=== PATIENT | female | born 1955 | race Caucasian/White ===

== ENCOUNTER 2018-02-15 10:31 | Emergency (ER) | END 2018-02-15 11:41 | disposition home or self-care (01) ==

== ENCOUNTER 2018-02-17 05:45 | Emergency (ER) | END 2018-02-17 06:46 | disposition home or self-care (01) ==

== ENCOUNTER 2018-02-19 06:58 | Emergency (ER) | END 2018-02-19 08:40 | disposition home or self-care (01) ==

== ENCOUNTER 2018-02-21 05:10 | Emergency (ER) | END 2018-02-21 05:40 | disposition home or self-care (01) ==

== ENCOUNTER 2018-12-06 05:50 | Inpatient (IN) | payer MEDICAID, OTHER ==
[~2018-12-06] VITALS: Ht 170.2 cm; Wt 89.6 kg
[2018-12-06] VITALS (27 sets, daily range): BP systolic 94–128; BP diastolic 66–79; PULSE 94–178; RESP 19–29; Ht 170.2 cm; Wt 89.6 kg
[~2018-12-06 05:50] MED LIST: CEPH-443 PO; MUPI22OI2 TOP
[2018-12-06] MEDS ORDERED: ASPIRIN 81 MG TAB PO STA (06:22)
[2018-12-06] MEDS ORDERED: DILTIAZEM 25 MG INJ IV ONE ×2 (06:30→07:00)
[2018-12-06] MEDS ORDERED: DILTIAZEM-D5W 125MG/125ML DRIP 125 ML IV SCH (07:00)
[2018-12-06] MEDS ORDERED: ALBU18HF INHALATION (07:25)
[2018-12-06] MEDS ORDERED: LISI10TA2 PO (07:25)
[2018-12-06] MEDS ORDERED: DOXY100T2 PO (07:26)
[2018-12-06] MEDS ORDERED: ACET-141 PO (07:26)
[2018-12-06] MEDS ORDERED: HYDR12.58 PO (07:26)
[2018-12-06] MEDS ORDERED: CHOL100062 PO (07:27)
[2018-12-06] MEDS ORDERED: ATOR20TA38 PO (07:27)
[2018-12-06] MEDS ORDERED: GLIP5TAB13 PO (07:27)
--- NOTE | 2018-12-06 07:52 | ERD ---
ER Documentation Chief Complaint Chief Complaint DX AT [facility]/ [facility]NA ON TUESDAY. C/O SOB HPI 63-year-old female presents the emergency department complaining of shortness of breath. Patient is a somewhat difficult limited historian. She states that over the last 2-3 days, she felt short of breath. She reported no fevers, chills, cough, sputum production. She had a nonspecific discomfort in her chest associated with the shortness of breath. She was evaluated at [facility] and diagnosed with a pneumonia. She was given albuterol and antibiotics, but it is unclear how compliant she has been with these medications. She was told at that hospital that "they do not handle heart patients." Today, she continues to have chest pain and shortness of breath. She reports no further details other than that as above. ROS All systems reviewed and are negative except as per history of present illness. Medications Home Meds Reported Medications Atorvastatin Calcium* (Atorvastatin Calcium*) 20 Mg Tablet, 20 MG PO QHS, #30 TAB 12/06/18 Glipizide* (Glipizide*) 5 Mg Tablet, 5 MG PO BID, TAB 12/06/18 Cholecalciferol* (Vitamin D3*) 1,000 Unit Tablet, 2000 UNIT PO DAILY, TAB 12/06/18 Hydrochlorothiazide* (Hydrochlorothiazide*) 12.5 Mg Tablet, 12.5 MG PO DAILY, #30 TAB 12/06/18 Doxycycline* (Vibramycin*) 100 Mg Tab, 100 MG PO BID, TAB 12/06/18 Acetaminophen* (Acetaminophen*) 500 MG Extra Strength Tablet, 500 MG PO Q6 PRN for PAIN AND OR ELEVATED TEMP, TAB 12/06/18 Lisinopril* (Lisinopril*) 10 Mg Tablet, 10 MG PO DAILY, #30 TAB 12/06/18 Albuterol Sulfate* (Ventolin HFA*) 18 Gm Hfa.aer.ad, 2 PUFF INHALATION Q4H PRN for WHEEZING AND SOB, #1 INHALER 12/06/18 Discontinued Scripts Mupirocin* (Bactroban*) 2% -22 Gram Oint...g., 1 APPLIC TOP BID for 7 Days, EA Prov:YANIQUE JOHNSON PA-C 02/19/18 Cephalexin* (Keflex*) 500 Mg Capsule, 500 MG PO QID for 7 Days, CAP Prov:ADAMA CATALAN PA-C 02/15/18 Allergies Allergies: Coded Allergies: codeine (Unverified Allergy, Unknown, 12/06/18) PMhx/Soc History of Surgery: Yes (right knee) Anesthesia Reaction: No Hx Neurological Disorder: No Hx Respiratory Disorders: No Hx Cardiac Disorders: Yes (HTN, HIGH CHOLESTEROL) Hx Psychiatric Problems: No Hx Miscellaneous Medical Probl: Yes (DM) Hx Alcohol Use: No Hx Substance Use: No Hx Tobacco Use: No Smoking Status: Never smoker FmHx Noncontributory for chief complaint Physical Exam Vitals Vital Signs Date Temp Pulse Resp B/P (MAP) Pulse Ox O2 O2 Flow FiO2 Time Delivery Rate 12/06/18 98.3 141 22 98/58 (71) 96 Nasal 4.0 07:20 Cannula 12/06/18 98.3 178 16 119/73 94 Room Air 06:30 (88) 12/06/18 98.5 72 18 225/152 99 05:54 (176) Physical Exam GENERAL: The patient is well developed and appropriate for usual state of health in no apparent distress HEENT: Pupils equal, round, and reactive to light. EOMI. There is no scleral icterus. NECK: C-spine is soft and supple, there is no meningismus. There is no cervical lymphadenopathy. LUNGS: Clear to auscultation bilaterally. There are no rales, wheezes or rhonchi. HEART: Rapid irregularly irregular rate and rhythm with no murmurs rubs or ga llops ABDOMEN: Soft, non-tender, non-distended. There are bowel sounds in all four quadrants. No rebound or guarding. EXTREMITIES: There is no peripheral cyanosis or edema. No focal swelling or erythema. NEURO: The patient moves all four extremities with 5/5 strength. Cranial nerves II - XII are intact. Normal gait. Alert and oriented SKIN: There is no apparent rash or petechiae. HEME/LYMPHATIC: There is no evidence of excessive bruising or lymphedema. PSYCHIATRIC: The patient does not appear anxious or depressed. Result Diagram: 12/06/18 0646 12/06/18 0646 Results 24 hrs Laboratory Tests Test 12/06/18 06:46 White Blood Count 11.8 10^3/ul Red Blood Count 4.43 10^6/ul Hemoglobin 13.4 g/dl Hematocrit 40.3 % Mean Corpuscular Volume 91.0 fl Mean Corpuscular Hemoglobin 30.2 pg Mean Corpuscular Hemoglobin Concent 33.3 g/dl Red Cell Distribution Width 13.2 % Platelet Count 207 10^3/UL Mean Platelet Volume 11.2 fl Immature Granulocytes % 0.600 % Neutrophils % 74.8 % Lymphocytes % 16.7 % Monocytes % 7.4 % Eosinophils % 0.2 % Basophils % 0.3 % Nucleated Red Blood Cells % 0.0 /100WBC Immature Granulocytes # 0.070 10^3/ul Neutrophils # 8.8 10^3/ul Lymphocytes # 2.0 10^3/ul Monocytes # 0.9 10^3/ul Eosinophils # 0.0 10^3/ul Basophils # 0.0 10^3/ul Nucleated Red Blood Cells # 0.0 10^3/ul Prothrombin Time 13.6 Sec Prothrombin Time Ratio 1.1 INR International Normalized Ratio 1.03 Activated Partial Thromboplast Time 30.3 Sec Sodium Level 140 mmol/L Potassium Level 3.6 mmol/L Chloride Level 101 mmol/L Carbon Dioxide Level 23 mmol/L Anion Gap 16 Blood Urea Nitrogen 26 mg/dl Creatinine 0.97 mg/dl Est Glomerular Filtrat Rate mL/min 58 mL/min Glucose Level 207 mg/dl Calcium Level 9.7 mg/dl Troponin I < 0.012 ng/ml B-Type Natriuretic Peptide 1120 PG/ML Current Medications Medications Dose Sig/Maddy Start Time Status Last (Trade) Ordered Route PRN Stop Time Admin Dose Reason Admin Aspirin 162 mg ONCE STAT 12/06/18 DC 12/06/18 (Aspirin) PO 06:22 06:41 12/06/18 06:24 Diltiazem 20 mg ONCE ONCE 12/06/18 DC 12/06/18 HCl IV 06:30 06:42 (Cardizem Iv) 12/06/18 06:31 Diltiazem 20 mg ONCE ONCE 12/06/18 DC 12/06/18 HCl IV 07:00 07:07 (Cardizem Iv) 12/06/18 07:01 Diltiazem 125 ml @ 5 TITRATE IV 12/06/18 HCl mls/hr 07:00 Procedures/MDM Patient was taken to a room, seen and evaluated. Comfort measures were initiated. Diagnostic tests were ordered and reviewed. 3 LEAD RHYTHM STRIP: A. fib with RVR. After diltiazem and starting a diltiazem drip, her heart rate began to slow down, but continued to require the drip for further rate control EK lead EKG reviewed by myself: A. fib with RVR Normal [place] and intervals Nonspecific ST and T wave changes without ST elevation Impression: Atrial fibrillation with rapid ventricular response RADIOLOGY: Reviewed with the radiologist CONSULTATION: Hospitalist was notified for admission REEVALUATION: 0750: Diagnostic tests were appreciated. Patient continued to require IV Cardizem through the drip to control heart rate. Her blood pressure remained borderline but essentially stable and improving and she remained clinically nontoxic MEDICAL DECISION MAKIN-year-old female resents with shortness of breath. Although she was recently diagnosed with a pneumonia, her evaluation is more consistent with this being cardiac in etiology. Patient required aggressive medical intervention for her significantly elevated heart rate and newly diagnosed rapid atrial fibrillation. Patient will continue to require IV diltiazem with titration and will require hospitalization to the intensive care unit she continues to have a significantly rapidly elevated heart rate. At this point she does not appear to be ischemic, but this will require further evaluation and monitoring. CRITICAL CARE: Time:>35 minutes Patient has a significant chance of clinical deterioration Treatments/Evaluations: Close monitoring and treatment of unstable vital signs, cardiorespiratory, and neurologic status, while maintaining tight balance of fluid, respiratory, and cardiac interventions. Departure Diagnosis: Primary Impression: Atrial fibrillation with RVR Condition: Serious BE FRANZ Dec 06, 2018 07:52
[2018-12-06] MEDS ORDERED: METOPROLOL 5 MG INJ IV ONE (08:30)
[2018-12-06] MEDS ORDERED: SOD CHLORIDE 0.9% 500 ML IV ONE (08:30)
[2018-12-06] MEDS ORDERED: ACETAMINOPHEN 500 MG TAB PO STA (09:01)
[2018-12-06] MEDS ORDERED: ALBUTEROL HFA 8 GM INHALER INH PRN (10:30)
[2018-12-06] MEDS ORDERED: AMIODARONE 150MG/D5W BOLUS 100 ML IV ONE (10:30)
--- NOTE | 2018-12-06 10:42 | HP ---
Date/Time of Note Date/Time of Note DATE: 12/06/18 TIME: 10:28 Assessment/Plan VTE Prophylaxis Pharmacological prophylaxis: LMWH Lines/Catheters IV [facility] [place] Assessment/Plan Hospital Course 63-year-old female who presents with left-sided chest pain, mild shortness of breath and occasional cough, admitted and managed as follows 1. New onset, versus new diagnosis A. fib with RVR 2. Chest pain with radiation to left shoulder and left neck, rule out acute coronary syndrome 3. Respiratory tract infection, likely viral 4. Chronic dyslipidemia on statin therapy 5. Chronic diabetes mellitus type 2 on oral hypoglycemic therapy 6. Chronic kidney disease stage II? EGFR 58 7. Rule out CHF, BNP elevated 8. Mild leukocytosis likely secondary to #3 Plan: 1. Patient will be admitted to telemetry floor, continue Cardizem drip and titrate for optimal rate control. We will also give a bolus dose of amiodarone because her blood pressure is running low now and her heart rate is still pretty fast. Cardiology consultation will be obtained 2. Complete ACS rule out, 2D echo, further intervention re: chest pain will be per cardiology 3. We will continue azithromycin treatment for possible left-sided pneumonia, continue to monitor, patient does not have overt signs of infection 4. We will hold on home antihypertensives at this time as blood pressure is a little on the low side on Cardizem drip 5. Hold home oral hypoglycemics for now, start basal and pre-meal Lantus based on weight, place patient on diabetic control diet, plan to resume oral hypoglycemics at discharge 6. Other interventions as per the patient's chart. TSH, lovenox, A1c e.t.c Plan of care has been discussed in detail with the patient, questions have been answered. Result Diagram: 12/06/18 0646 12/06/18 0646 Results 24hrs Laboratory Tests Test 12/06/18 06:46 White Blood Count 11.8 H Red Blood Count 4.43 Hemoglobin 13.4 Hematocrit 40.3 Mean Corpuscular Volume 91.0 Mean Corpuscular Hemoglobin 30.2 Mean Corpuscular Hemoglobin Concent 33.3 Red Cell Distribution Width 13.2 Platelet Count 207 Mean Platelet Volume 11.2 H Immature Granulocytes % 0.600 H Neutrophils % 74.8 Lymphocytes % 16.7 Monocytes % 7.4 Eosinophils % 0.2 Basophils % 0.3 Nucleated Red Blood Cells % 0.0 Immature Granulocytes # 0.070 H Neutrophils # 8.8 H Lymphocytes # 2.0 Monocytes # 0.9 Eosinophils # 0.0 Basophils # 0.0 Nucleated Red Blood Cells # 0.0 Prothrombin Time 13.6 Prothrombin Time Ratio 1.1 INR International Normalized Ratio 1.03 Activated Partial Thromboplast Time 30.3 Sodium Level 140 Potassium Level 3.6 Chloride Level 101 Carbon Dioxide Level 23 Anion Gap 16 H Blood Urea Nitrogen 26 H Creatinine 0.97 Est Glomerular Filtrat Rate mL/min 58 L Glucose Level 207 Calcium Level 9.7 Troponin I < 0.012 B-Type Natriuretic Peptide 1120 H HPI/ROS Admit Date/Time Admit Date/Time Hx of Present Illness 63-year-old female with a past medical history of hypertension, diabetes and dyslipidemia who presented to emergency room today with complaints of left-sided chest pain and shortness of breath. The patient states that 2 days ago she had gone to the emergency room at [facility] with complaints of cough and some left- sided chest discomfort. At that time an x-ray was suggestive of a pneumonia and she was discharged on oral antibiotics. She was however not able to purchase the antibiotics because she had a huge men-ro-mpxkbs cost and also she had taken nothing. She did not improve, and actually got worse and overnight she continued to have significant left-sided discomfort, she also had pain in her shoulder, on the left side, also pain on the left side of her neck and on the left side of her face as well as headaches. There was shortness of breath associated with this but not enough to affect ambulation or the rest of her daily activities. Based on this she decided to come to our emergency room to be evaluated and possibly given a different prescription for the pneumonia. When she got to the ER she was found to be in rapid atrial fibrillation and a chest x-ray does come from the presence of left lower lobe atelectasis versus infiltrate and at this time the patient is being admitted for chest pain rule out control of new onset A. fib versus new diagnosis and treatment of possible left-sided pneumonia. Of note is that the patient does maintain close follow-up with her primary care doctor, she actually has an appointment tomorrow based on her recent emergency room visit. She has a routine appointment after that December 25. Hence it is more likely that this is a new onset of atrial fibrillation . ROS Constitutional: No chills, No febrile, No nausea, No poor po Eyes: no complaints ENT: no complaints Gastrointestinal: no complaints Genitourinary: no complaints Neurologic: headache; No focal-weakness, No syncope PMH/Family/Social Past Medical History HTN DM HLD OA Medications Current Medications Diltiazem HCl 125 ml @ 5 mls/hr TITRATE IV Last administered on 12/06/18at 07:50; Admin Dose 5 MLS/HR; Start 12/06/18 at 07:00 Acetaminophen (Tylenol Tab) 500 mg Q6 PRN PO MILD PAIN(1-3)OR ELEVATED TEMP; Start 12/06/18 at 10:30; Status UNV Albuterol (Proventil (O.r. Use Only)) 2 puff Q4H PRN INH WHEEZING AND SOB; Start 12/06/18 at 10:30; Status UNV Atorvastatin Calcium (Lipitor) 20 mg QHS PO ; Start 12/06/18 at 21:00; Status UNV Cholecalciferol (Vitamin D) 2,000 unit DAILY PO ; Start 12/07/18 at 09:00; Status UNV Amiodarone HCl 100 ml @ 600 mls/hr ONCE ONCE IV ; Start 12/06/18 at 10:30; Stop 12/06/18 at 10:39; Status UNV Coded Allergies: codeine (Unverified Allergy, Unknown, 12/06/18) Past Surgical History Knee sx Social History Smoking Status: Never smoker Exam/Review of Systems Vital Signs Vitals Vital Signs Date Temp Pulse Resp B/P (MAP) Pulse Ox O2 O2 Flow FiO2 Time Delivery Rate 12/06/18 117 23 101/89 99 Nasal 4.0 10:11 (93) Cannula 12/06/18 98.3 07:20 Exam Exam General: A&O x3, answering questions appropriately, calm , no significant distress HEENT: NC/ AT. PERRL. EOM intact Neck: supple, no JVD CVS: S1, S2, irregularly irregular no murmurs. no pain on chest wall palpation Lungs: CTA b/l. no wheezing or rhonchi but diminished Abd: soft, nontender, +BS Ext: moving all extremities skin: no rashes . Additional Comments PROCEDURE: XR Chest. CLINICAL INDICATION: Chest pain TECHNIQUE: AP portable semi upright chest was obtained COMPARISON: None. FINDINGS: The heart is moderately to markedly enlarged. Atherosclerosis of the aorta. No definite pulmonary vascular congestion. Mild vague increased density the bases likely due to a combination of atelectasis and scarring. Left basilar infiltrate cannot be excluded although felt to be less likely. Remainder lungs are clear. No pleural effusions and pneumothorax per IMPRESSION: 1. Cardiomegaly without congestive heart failure. 2. Mild patchy basilar densities more prominent at the left base likely due to atelectasis and scarring. Acute infiltrate at the left base cannot be totally excluded though felt to be less likely. RPTAT:AAJJ Physician Emerita Date Time Electronically viewed and signed by Larry Gordillo Physician on 12/06/2018 06:59 BM/ CC: BE FRANZ [id number] EKG : BRODIE Pat Dec 06, 2018 10:38
[2018-12-06] MEDS ORDERED: AZITHROMYCIN 250 MG TAB PO ONE (11:00)
[2018-12-06] MEDS: ENOXAPARIN 100 MG/ML SYG SC SCH ×2 (12:14→21:02)
--- NOTE | 2018-12-06 14:54 | CONS ---
Assessment/Plan Cardiology NYHA: II Heart Failure Type: Acute Heart Failure Type: Diastolic Assessment/Plan Hospital Course (Demo Recall) Assessment: Atrial fibrillation with rapid ventricular response - new diagnosis, uncertain duration of onset, CHADS2 score of 2 Acute diastolic heart failure - echocardiogram with preserved LVEF Chest pain Hypertension Dyslipidemia Diabetes mellitus Possible upper respiratory tract infection or pneumonia Recommendations: -diltiazem drip for rate control -continue anticoagulation with Lovenox, will eventually need to transition to chronic oral anticoagulation -continue aspirin and statin Consultation Date/Type/Reason Admit Date/Time Type of Consult Cardiology Reason for Consultation atrial fibrillation with rapid ventricular response Date/Time of Note DATE: 12/06/18 TIME: 14:47 Hx of Present Illness The patient is a 63 year-old female who presents with chest pain and shortness of breath. She presented to the emergency department at [place] on Tuesday with similar symptoms and was diagnosed with pneumonia and discharged. However, she has been unable to obtain the antibiotic that she was prescribed due to high [id number] costs. She presents now with worsening symptoms. EKG shows atrial fibrillation with rapid ventricular response. Initial troponin is negative. BNP is elevated at 1120 and chest x-ray findings consistent with congestive heart failure. 14 point review of systems negative other than per HPI. Past Medical History Medical History: diabetes, high cholesterol, hypertension Home Meds Reported Medications Atorvastatin Calcium* (Atorvastatin Calcium*) 20 Mg Tablet, 20 MG PO QHS, #30 TAB 12/06/18 Glipizide* (Glipizide*) 5 Mg Tablet, 5 MG PO BID, TAB 12/06/18 Cholecalciferol* (Vitamin D3*) 1,000 Unit Tablet, 2000 UNIT PO DAILY, TAB 12/06/18 Hydrochlorothiazide* (Hydrochlorothiazide*) 12.5 Mg Tablet, 12.5 MG PO DAILY, #30 TAB 12/06/18 Doxycycline* (Vibramycin*) 100 Mg Tab, 100 MG PO BID, TAB 12/06/18 Acetaminophen* (Acetaminophen*) 500 MG Extra Strength Tablet, 500 MG PO Q6 PRN for PAIN AND OR ELEVATED TEMP, TAB 12/06/18 Lisinopril* (Lisinopril*) 10 Mg Tablet, 10 MG PO DAILY, #30 TAB 12/06/18 Albuterol Sulfate* (Ventolin HFA*) 18 Gm Hfa.aer.ad, 2 PUFF INHALATION Q4H PRN for WHEEZING AND SOB, #1 INHALER 12/06/18 Discontinued Scripts Mupirocin* (Bactroban*) 2% -22 Gram Oint...g., 1 APPLIC TOP BID for 7 Days, EA Prov:YANIQUE JOHNSON PA-C 02/19/18 Cephalexin* (Keflex*) 500 Mg Capsule, 500 MG PO QID for 7 Days, CAP Prov:ADAMA CATALAN PA-C 02/15/18 Medications Current Medications Diltiazem HCl 125 ml @ 5 mls/hr TITRATE IV Last administered on 12/06/18at 07 :50; Admin Dose 5 MLS/HR; Start 12/06/18 at 07:00 Acetaminophen (Tylenol Tab) 500 mg Q6 PRN PO MILD PAIN(1-3)OR ELEVATED TEMP; Start 12/06/18 at 10:30 Albuterol (Ventolin Hfa) 2 puff Q4H PRN INH WHEEZING AND SOB; Start 12/06/18 at 10:30 Atorvastatin Calcium (Lipitor) 20 mg QHS PO ; Start 12/06/18 at 21:00 Cholecalciferol (Vitamin D) 2,000 unit DAILY PO ; Start 12/07/18 at 09:00 Enoxaparin Sodium (Lovenox) 90 mg Q12 SC Last administered on 12/06/18at 12:14; Admin Dose 90 MG; Start 12/06/18 at 11:00 Azithromycin (Zithromax) 250 mg DAILY PO ; Start 12/07/18 at 09:00; Stop 12/11/18 at 08:59 Allergies: Coded Allergies: codeine (Unverified Allergy, Unknown, 12/06/18) Past Surgical History Umbilical hernia repair Left ankle surgery Family History Significant Family History: no pertinent family hx Social History Smoking Status: Never smoker Exam/Review of Systems Vital Signs Vitals Vital Signs Date Temp Pulse Resp B/P (MAP) Pulse Ox O2 O2 Flow FiO2 Time Delivery Rate 12/06/18 120 18 99/62 (74) 98 Nasal 13:00 Cannula 12/06/18 4.0 11:00 12/06/18 98.3 07:20 Exam Constitutional: alert, well developed Psych: no complaints, nl mood/affect Head: normocephalic, atraumatic Eyes: nl conjunctiva, nl lids ENMT: nl external ears & nose, nl nasal mucosa & septum Neck: supple, non-tender Respiratory: crackles/rales, diminished breath sounds Cardiovascular: irregular rhythm Gastrointestinal: soft, non-tender Musculoskeletal: nl extremities to inspection Extremities: No cyanosis, No clubbing, No edema Neurological: nl mental status, nl speech Labs Result Diagram: 12/06/18 0646 12/06/18 0646 Results 24hrs Laboratory Tests Test 12/06/18 06:46 12/06/18 11:50 12/06/18 12:48 White Blood Count 11.8 H Red Blood Count 4.43 Hemoglobin 13.4 Hematocrit 40.3 Mean Corpuscular Volume 91.0 Mean Corpuscular Hemoglobin 30.2 Mean Corpuscular Hemoglobin Concent 33.3 Red Cell Distribution Width 13.2 Platelet Count 207 Mean Platelet Volume 11.2 H Immature Granulocytes % 0.600 H Neutrophils % 74.8 Lymphocytes % 16.7 Monocytes % 7.4 Eosinophils % 0.2 Basophils % 0.3 Nucleated Red Blood Cells % 0.0 Immature Granulocytes # 0.070 H Neutrophils # 8.8 H Lymphocytes # 2.0 Monocytes # 0.9 Eosinophils # 0.0 Basophils # 0.0 Nucleated Red Blood Cells # 0.0 Prothrombin Time 13.6 Prothrombin Time Ratio 1.1 INR International Normalized Ratio 1.03 Activated Partial Thromboplast Time 30.3 Sodium Level 140 Potassium Level 3.6 Chloride Level 101 Carbon Dioxide Level 23 Anion Gap 16 H Blood Urea Nitrogen 26 H Creatinine 0.97 Est Glomerular Filtrat Rate mL/min 58 L Glucose Level 207 Calcium Level 9.7 Troponin I < 0.012 0.032 B-Type Natriuretic Peptide 1120 H Thyroid Stimulating Hormone (TSH) 5.320 H Free Thyroxine 1.79 Urine Color KADY Urine Clarity CLOUDY A Urine pH 5.0 Urine Specific [place] 1.028 Urine Ketones TRACE A Urine Nitrite NEGATIVE Urine Bilirubin NEGATIVE Urine Urobilinogen 2+ H Urine Leukocyte Esterase TRACE A Urine Microscopic RBC 5 Urine Microscopic WBC 15 H Urine Squamous Epithelial Cells FEW Urine Hemoglobin NEGATIVE Urine Glucose 3+ H Urine Total Protein 1+ H Urine Opiates Screen Positive Urine Barbiturates Negative Urine Amphetamines Screen Negative Urine Benzodiazepines Screen Negative Urine Cocaine Screen Negative Urine Cannabinoids Negative Creatine Kinase 88 Creatine Kinase Index 1.6 Creatinine Kinase MB (Mass) 1.40 Medications Medications Current Medications Diltiazem HCl 125 ml @ 5 mls/hr TITRATE IV Last administered on 12/06/18at 07:50; Admin Dose 5 MLS/HR; Start 12/06/18 at 07:00 Acetaminophen (Tylenol Tab) 500 mg Q6 PRN PO MILD PAIN(1-3)OR ELEVATED TEMP; Start 12/06/18 at 10:30 Albuterol (Ventolin Hfa) 2 puff Q4H PRN INH WHEEZING AND SOB; Start 12/06/18 at 10:30 Atorvastatin Calcium (Lipitor) 20 mg QHS PO ; Start 12/06/18 at 21:00 Cholecalciferol (Vitamin D) 2,000 unit DAILY PO ; Start 12/07/18 at 09:00 Enoxaparin Sodium (Lovenox) 90 mg Q12 SC Last administered on 12/06/18at 12:14; Admin Dose 90 MG; Start 12/06/18 at 11:00 Azithromycin (Zithromax) 250 mg DAILY PO ; Start 12/07/18 at 09:00; Stop 12/11/18 at 08:59 ALLEN DEVINE MD Dec 06, 2018 14:54
[2018-12-06] MEDS ORDERED: METF100010 PO (15:40)
[2018-12-06] MEDS ORDERED: DEXTROSE 50% 50 ML SYRINGE IV PRN ×2 (18:30)
[2018-12-06] MEDS ORDERED: GLUCOSE GEL 15 GRAM TUBE PO PRN ×2 (18:30)
[2018-12-06] MEDS ORDERED: GLUCOSE GEL 15 GRAM TUBE BUCCAL PRN (18:30)
[2018-12-06] MEDS ORDERED: GLUCAGON 1 MG INJ IM PRN (18:30)
[2018-12-06] MEDS ORDERED: AMIODARONE 900 MG in DEXTROSE 5% 482 ML IV SCH (19:30)
[2018-12-06] MEDS ORDERED: DIGOXIN 500 MCG INJ IV ONE ×2 (20:56→21:00)
[2018-12-06] MEDS: INSULIN ASPART [NOVOLOG] 3 ML PEN SC SCH ×2 (21:03→21:04)
[2018-12-06] MEDS: INSULIN GLARGINE [LANTus] (100 UNITS/ML) SYG SC SCH (21:06)
[2018-12-06] MEDS: ATORVASTATIN 20 MG TAB PO SCH (21:06)
[2018-12-06] MEDS: ACETAMINOPHEN 500 MG TAB PO PRN (23:39)
[2018-12-07] VITALS (49 sets, daily range): BP systolic 93–149; BP diastolic 59–89; PULSE 65–125; RESP 13–26
[2018-12-07] MEDS: INSULIN ASPART [NOVOLOG] 3 ML PEN SC SCH ×9 (01:00→20:36)
[2018-12-07] MEDS: ACCU-CHEK XX SCH (01:44)
[2018-12-07] MEDS: ACETAMINOPHEN 500 MG TAB PO PRN ×3 (05:56→23:58)
--- NOTE | 2018-12-07 08:12 | RADRPT ---
Echocardiogram Report Patient Name: Chandu JHAVERI ID: [id number] : 1955 (63y 11m)Study Date: 12/06/2018 11:28:04 AM Gender: FAccession #: [id number] Tech: OK Location: Ref.Physician: BRODIE ROE Height(Cm): BSA: Weight(Kg): Quality: AdequateAccount #: Procedures: Echocardiographic Report: Transthoracic echocardiogram with complete 2D, M-Mode, and doppler examination. Indications: Chest Pain. Measurements: 2D/M Mode Doppler Measurement Value Normal Range Measurement Value Normal Range LVIDd 2D 4.6 [ 3.8 - 5.2 ] cm AV Peak Ahmet 1.2 [ 100.0 - 170.0 ] cm/sec LVIDs 2D 3.8 [ 2.2 - 3.5 ] cm AV Peak PG 6.0 [ 2.0 - 9.0 ] mmHg LVPWd 2D 1.2 [ 0.6 - 0.9 ] cm LVOT Peak Ahmet 0.9 [ 70.0 - 110.0 ] cm/sec IVSd 2D 1.3 [ 0.6 - 0.9 ] cm LVOT Peak PG 3.0 [ 2.0 - 6.0 ] mmHg IVS/LVPW 2D 1.1 ratio TR Peak Ahmet 2.3 [ 100.0 - 280.0 ] cm/sec AoR Diam 2D 3.9 [ 2.3 - 3.1 ] cm TR Peak PG 21.0 mmHg LA/Ao 2D 1 ratio RVSP 24.0 [ 10.0 - 36.0 ] mmHg LA Dimen 2D 2.8 [ 2.7 - 3.8 ] cm RA Pressure 3.0 mmHg Findings: Left Ventricle: Normal left ventricular systolic function. Normal left ventricular cavity size. Mild concentric left ventricular hypertrophy. Ejection fraction is visually estimated at 55 - 60 %. Tissue Doppler/Mitral Doppler indices are indeterminate in this study due to the presence of atrial fibrillation. Right Ventricle: Normal right ventricular size. Normal right ventricular systolic function. Left Atrium: The left atrium is normal in size. Right Atrium: The right atrium is normal in size. Mitral Valve: Normal appearance and function of the mitral valve with trace physiologic regurgitation. Aortic Valve: No hemodynamically significant aortic stenosis by doppler. Aortic cusps appear mildly calcified. Mild aortic valve regurgitation. Tricuspid Valve: Normal appearance of the tricuspid valve. Estimated peak PA systolic pressure 24 mmHg. There is trace tricuspid regurgitation. Pulmonic Valve: Normal pulmonic valve appearance. Pericardium: Normal pericardium with no significant pericardial effusion. Aorta: Normal aortic root. IVC: Normal size and normal respiratory collapse consistent with normal right atrial pressure. Conclusions: Normal left ventricular systolic function. Normal left ventricular cavity size. Mild concentric left ventricular hypertrophy. Ejection fraction is visually estimated at 55 - 60 %. Tissue Doppler/Mitral Doppler indices are indeterminate in this study due to the presence of atrial fibrillation. Electronically Signed By: Adonay Fuller 2018-12-06 13:21:02 PDT
[2018-12-07] MEDS: CHOLECALCIFEROL 1,000 UNIT TAB PO SCH (08:20)
[2018-12-07] MEDS: ENOXAPARIN 100 MG/ML SYG SC SCH (08:37)
[2018-12-07] MEDS ORDERED: METOPROLOL 25 MG TAB PO SCH (09:00)
[2018-12-07] MEDS ORDERED: AZITHROMYCIN 250 MG TAB PO SCH (09:00)
--- NOTE | 2018-12-07 11:06 | CONS ---
Assessment/Plan Cardiology NYHA: II Heart Failure Type: Acute Heart Failure Type: Diastolic Assessment/Plan Hospital Course (Demo Recall) Assessment: Paroxysmal atrial fibrillation - new diagnosis and rapid ventricular response on presentation, reverted to sinus rhythm on amiodarone drip, CHADS2 score of 2 Acute diastolic heart failure - echocardiogram with preserved LVEF Chest pain - ruled out for myocardial infarction Hypertension Dyslipidemia Diabetes mellitus Possible upper respiratory tract infection or pneumonia - on antibiotics Hypomagnesemia Recommendations: -Lasix 20mg IV x 1 -replete magnesium -complete amiodarone drip per protocol, and then monitor off antiarrhythmics -discontinue diltiazem drip -increase metoprolol to 50mg BID -discontinue Lovenox and aspirin -start Xarelto 20mg daily for atrial fibrillation thromboembolic prophylaxis -continue atorvastatin 20mg daily Stable for downgrade to telemetry. Consultation Date/Type/Reason Admit Date/Time Dec 06, 2018 at 07:47 Initial Consult Date Type of Consult Cardiology Date/Time of Note DATE: 12/07/18 TIME: 10:59 24 HR Interval Summary Free Text/Dictation Patient was started on amiodarone drip and has reverted to a normal sinus rhythm. Detailed Summary Additional Comments 14 point review of systems without changes. Exam/Review of Systems Vital Signs Vitals Vital Signs Date Temp Pulse Resp B/P (MAP) Pulse Ox O2 O2 Flow FiO2 Time Delivery Rate 12/07/18 76 23 97 09:30 12/07/18 106/77 Nasal 09:00 (87) Cannula 12/07/18 97.8 08:00 12/07/18 2.0 08:00 12/07/18 27 02:22 Intake and Output 12/06/18 12/06/18 12/07/18 1414:59 22:59 06:59 IntakeIntake Total 600 ml 389.6 ml 589.1 ml OutputOutput Total 450 ml 350 ml BalanceBalance 600 ml -60.4 ml 239.1 ml Exam Exam Constitutional: alert, well developed Psych: no complaints, nl mood/affect Head: normocephalic, atraumatic Eyes: nl conjunctiva, nl lids ENMT: nl external ears & nose, nl nasal mucosa & septum Neck: supple, non-tender Respiratory: crackles/rales, diminished breath sounds Cardiovascular: regular rate and rhythm Gastrointestinal: soft, non-tender Musculoskeletal: nl extremities to inspection Extremities: No cyanosis, No clubbing, No edema Neurological: nl mental status, nl speech Labs Result Diagram: 12/07/18 0458 12/06/18 0646 Results 24hrs Laboratory Tests Test 12/06/18 11:50 12/06/18 12:48 12/06/18 18:50 12/06/18 19:14 Urine Color KADY Urine Clarity CLOUDY A Urine pH 5.0 Urine Specific 1.028 [place] Urine Ketones TRACE A Urine Nitrite NEGATIVE Urine Bilirubin NEGATIVE Urine Urobilinogen 2+ H Urine Leukocyte TRACE A Esterase Urine Microscopic 5 RBC Urine Microscopic 15 H WBC Urine Squamous FEW Epithelial Cells Urine Hemoglobin NEGATIVE Urine Glucose 3+ H Urine Total Protein 1+ H Urine Opiates Screen Positive Urine Barbiturates Negative Urine Amphetamines Negative Screen Urine Negative Benzodiazepines Screen Urine Cocaine Screen Negative Urine Cannabinoids Negative Creatine Kinase 88 76 Creatine Kinase 1.6 1.6 Index Creatinine Kinase MB 1.40 1.19 (Mass) Troponin I 0.032 0.020 Bedside Glucose 132 Test 12/06/18 21:00 12/07/18 01:35 12/07/18 04:58 12/07/18 08:23 Bedside Glucose 176 139 138 White Blood Count 7.0 # Red Blood Count 3.79 L Hemoglobin 11.6 L Hematocrit 35.2 L Mean Corpuscular 92.9 Volume Mean Corpuscular 30.6 Hemoglobin Mean Corpuscular 33.0 Hemoglobin Concent Red Cell 13.3 Distribution Width Platelet Count 190 Mean Platelet Volume 11.1 H Immature 0.400 Granulocytes % Neutrophils % 65.1 Lymphocytes % 24.5 Monocytes % 8.6 Eosinophils % 1.0 Basophils % 0.4 Nucleated Red Blood 0.0 Cells % Immature 0.030 Granulocytes # Neutrophils # 4.5 Lymphocytes # 1.7 Monocytes # 0.6 Eosinophils # 0.1 Basophils # 0.0 Nucleated Red Blood 0.0 Cells # Phosphorus Level 2.4 L Magnesium Level 1.2 L Triglycerides Level 138 Cholesterol Level 119 LDL Cholesterol, 61 Calculated HDL Cholesterol 30 L Cholesterol/HDL 3.9 Ratio Medications Medications Current Medications Diltiazem HCl 125 ml @ 5 mls/hr TITRATE IV Last administered on 12/06/18at 07:50; Admin Dose 5 MLS/HR; Start 12/06/18 at 07:00 Acetaminophen (Tylenol Tab) 500 mg Q6 PRN PO MILD PAIN(1-3)OR ELEVATED TEMP Last administered on 12/07/18 05:56; Admin Dose 500 MG; Start 12/06/18 at 10:30 Albuterol (Ventolin Hfa) 2 puff Q4H PRN INH WHEEZING AND SOB Last administered on 12/06/18 21:45; Admin Dose 2 PUFF; Start 12/06/18 at 10:30 Atorvastatin Calcium (Lipitor) 20 mg QHS PO Last administered on 12/06/18 21:06; Admin Dose 20 MG; Start 12/06/18 at 21:00 Cholecalciferol (Vitamin D) 2,000 unit DAILY PO Last administered on 12/07/18 08:20; Admin Dose 2,000 UNIT; Start 12/07/18 at 09:00 Enoxaparin Sodium (Lovenox) 90 mg Q12 SC Last administered on 12/07/18 08:37; Admin Dose 90 MG; Start 12/06/18 at 11:00 Azithromycin (Zithromax) 250 mg DAILY PO ; Start 12/07/18 at 09:00; Stop 12/11/18 at 08:59 Diagnostic Test (Pha) (Accu-Chek) 1 ea 02 XX Last administered on 12/07/18 01:44; Admin Dose 1 EA; Start 12/07/18 at 02:00 Insulin Glargine (Lantus) 14 units DAILY@2000 SC Last administered on 12/06/18 21:06; Admin Dose 14 UNITS; Start 12/06/18 at 20:00 Insulin Aspart (Novolog Insulin Pen) 5 unit WITH MEALS SC Last administered on 12/07/18 08:27; Admin Dose 5 UNIT; Start 12/06/18 at 19:00 Insulin Aspart (Novolog Insulin Pen) NOVOLOG *MILD* ALGORI... Q4 SC Last administered on 12/06/18 21:04; Admin Dose 1 UNIT; Start 12/06/18 at 21:00 Amiodarone HCl 900 mg/Dextrose 500 ml @ 0 mls/hr Q0M IV Last administered on 12/06/18 19:44; Admin Dose 1 MLS/HR; Start 12/06/18 at 19:30; Stop 12/07/18 at 19:29 Miscellaneous Information 1 ea NOTE XX ; Start 12/06/18 at 18:30 Glucose (Glutose) 15 gm Q15M PRN PO DECREASED GLUCOSE; Start 12/06/18 at 18:30 Glucose (Glutose) 22.5 gm Q15M PRN PO DECREASED GLUCOSE; Start 12/06/18 at 18:30 Dextrose (D50w Syringe) 25 ml Q15M PRN IV DECREASED GLUCOSE; Start 12/06/18 at 18:30 Dextrose (D50w Syringe) 50 ml Q15M PRN IV DECREASED GLUCOSE; Start 12/06/18 at 18:30 Glucagon (Glucagen) 1 mg Q15M PRN IM DECREASED GLUCOSE; Start 12/06/18 at 18:30 Glucose (Glutose) 15 gm Q15M PRN BUCCAL DECREASED GLUCOSE; Start 12/06/18 at 18:30 Metoprolol Tartrate (Lopressor) 25 mg BID PO Last administered on 12/07/18at 10:56; Admin Dose 25 MG; Start 12/07/18 at 09:00 ALLEN DEVINE MD Dec 07, 2018 11:05
[2018-12-07] MEDS ORDERED: FUROSEMIDE 20 MG INJ IV ONE (11:30)
[2018-12-07] MEDS ORDERED: MAGNESIUM SULFATE 1 GM/D5W 100 ML IVPB ONE (11:30)
[2018-12-07] MEDS: RIVAROXABAN 20 MG TABLET PO SCH (18:54)
--- NOTE | 2018-12-07 19:28 | PN ---
Date/Time of Note Date/Time of Note DATE: 12/07/18 TIME OF EVALUATION: 09:15 Assessment/Plan VTE Prophylaxis Risk score (from Nsg)>0 risk: 3 Pharmacological prophylaxis: LMWH Lines/Catheters IV Catheter Type (from Nrsg): Peripheral IV Urinary Cath still in place: No Assessment/Plan Hospital Course S: feels better O: Constitutional: alert, oriented, no distress Head: atraumatic, normocephalic Neck: non-tender, supple Respiratory: clear to auscultation Cardiovascular: irregular rhythm, rate controlled Gastrointestinal: S/ NT / ND / +BS Extremities: no edema, good radial pulses assessment and plan: 63-year-old female who had presented with left-sided chest pain, mild shortness of breath and occasional cough, admitted and managed as follows 1. New onset, versus new diagnosis A. fib with RVR -on diltiazem and amiodarone drip but showing good rate control -BP slightly better and should be able to tolerate metoprolol -start PO metoprolol and start to wean off cardizem. add PO amiodarone? will defer to cardio -continue full dose lovenox, transition to oral anticoagulation 2. Chest pain with radiation to left shoulder and left neck, rule out acute coronary syndrome -trop neg x 3 -echo with oreserved EF but difficult study 2/2 afib -no more cp, f/u cardio final recs 3. Respiratory tract infection, likely viral -concern for infiltrate on CXR and patient had been told she had a PNA, complete tx with doxycycline 4. Chronic dyslipidemia on statin therapy -continue statin 5. Chronic diabetes mellitus type 2 on oral hypoglycemic therapy -continue basal and premeal insulin while inhouse and transition back to oral at discharge 6. Chronic kidney disease stage II? EGFR 58 -f/u am bmp 7. Rule out CHF, BNP elevated 8. Mild leukocytosis likely secondary to #3 9. Hypomagnesemia and hypophosphatemia : -replete 10. Mild TSH elevation but with normal free T4, -recommend repeat in 6 week s dispo : -wean of antiarrythmic GTT -transfer to tele ? if ok with cardio and if tele nurses are able to wean Plan of care has been discussed in detail with the patient, questions have been answered. Care time >35mins Result Diagram: 12/07/18 0458 12/06/18 0646 Results 24hrs Laboratory Tests Test 12/06/18 21:00 12/07/18 01:35 12/07/18 04:58 12/07/18 08:23 Bedside Glucose 176 139 138 White Blood Count 7.0 # Red Blood Count 3.79 L Hemoglobin 11.6 L Hematocrit 35.2 L Mean Corpuscular 92.9 Volume Mean Corpuscular 30.6 Hemoglobin Mean Corpuscular 33.0 Hemoglobin Concent Red Cell 13.3 Distribution Width Platelet Count 190 Mean Platelet Volume 11.1 H Immature 0.400 Granulocytes % Neutrophils % 65.1 Lymphocytes % 24.5 Monocytes % 8.6 Eosinophils % 1.0 Basophils % 0.4 Nucleated Red Blood 0.0 Cells % Immature 0.030 Granulocytes # Neutrophils # 4.5 Lymphocytes # 1.7 Monocytes # 0.6 Eosinophils # 0.1 Basophils # 0.0 Nucleated Red Blood 0.0 Cells # Phosphorus Level 2.4 L Magnesium Level 1.2 L Triglycerides Level 138 Cholesterol Level 119 LDL Cholesterol, 61 Calculated HDL Cholesterol 30 L Cholesterol/HDL 3.9 Ratio Test 12/07/18 12:47 12/07/18 18:39 Bedside Glucose 131 128 Exam/Review of Systems Exam Vitals Vital Signs Date Temp Pulse Resp B/P (MAP) Pulse Ox O2 O2 Flow FiO2 Time Delivery Rate 12/07/18 76 13 99 19:00 12/07/18 141/76 Room Air 18:00 (97) 12/07/18 98.6 16:00 12/07/18 2.0 08:00 12/07/18 27 02:22 Intake and Output 12/06/18 12/06/18 12/07/18 1515:00 23:00 07:00 IntakeIntake Total 600 ml 437.9 ml 557.5 ml OutputOutput Total 450 ml 350 ml BalanceBalance 600 ml -12.1 ml 207.5 ml Results Results 24hrs Laboratory Tests Test 12/06/18 21:00 12/07/18 01:35 12/07/18 04:58 12/07/18 08:23 Bedside Glucose 176 139 138 White Blood Count 7.0 # Red Blood Count 3.79 L Hemoglobin 11.6 L Hematocrit 35.2 L Mean Corpuscular 92.9 Volume Mean Corpuscular 30.6 Hemoglobin Mean Corpuscular 33.0 Hemoglobin Concent Red Cell 13.3 Distribution Width Platelet Count 190 Mean Platelet Volume 11.1 H Immature 0.400 Granulocytes % Neutrophils % 65.1 Lymphocytes % 24.5 Monocytes % 8.6 Eosinophils % 1.0 Basophils % 0.4 Nucleated Red Blood 0.0 Cells % Immature 0.030 Granulocytes # Neutrophils # 4.5 Lymphocytes # 1.7 Monocytes # 0.6 Eosinophils # 0.1 Basophils # 0.0 Nucleated Red Blood 0.0 Cells # Phosphorus Level 2.4 L Magnesium Level 1.2 L Triglycerides Level 138 Cholesterol Level 119 LDL Cholesterol, 61 Calculated HDL Cholesterol 30 L Cholesterol/HDL 3.9 Ratio Test 12/07/18 12:47 12/07/18 18:39 Bedside Glucose 131 128 Medications Medication Current Medications Acetaminophen (Tylenol Tab) 500 mg Q6 PRN PO MILD PAIN(1-3)OR ELEVATED TEMP Last administered on 12/07/18 16:50; Admin Dose 500 MG; Start 12/06/18 at 10:30 Albuterol (Ventolin Hfa) 2 puff Q4H PRN INH WHEEZING AND SOB Last administered on 12/06/18 21:45; Admin Dose 2 PUFF; Start 12/06/18 at 10:30 Atorvastatin Calcium (Lipitor) 20 mg QHS PO Last administered on 12/06/18 21:06; Admin Dose 20 MG; Start 12/06/18 at 21:00 Cholecalciferol (Vitamin D) 2,000 unit DAILY PO Last administered on 12/07/18 08:20; Admin Dose 2,000 UNIT; Start 12/07/18 at 09:00 Diagnostic Test (Pha) (Accu-Chek) 1 ea 02 XX Last administered on 12/07/18 01:44; Admin Dose 1 EA; Start 12/07/18 at 02:00 Insulin Glargine (Lantus) 14 units DAILY@2000 SC Last administered on 12/06/18 21:06; Admin Dose 14 UNITS; Start 12/06/18 at 20:00 Insulin Aspart (Novolog Insulin Pen) 5 unit WITH MEALS SC Last administered on 12/07/18 18:52; Admin Dose 5 UNIT; Start 12/06/18 at 19:00 Insulin Aspart (Novolog Insulin Pen) NOVOLOG *MILD* ALGORI... Q4 SC Last administered on 3/13/19at 21:04; Admin Dose 1 UNIT; Start 12/06/18 at 21:00 Amiodarone HCl 900 mg/Dextrose 500 ml @ 0 mls/hr Q0M IV Last administered on 12/06/18at 19:44; Admin Dose 1 MLS/HR; Start 12/06/18 at 19:30; Stop 12/07/18 at 19:29 Miscellaneous Information 1 ea NOTE XX ; Start 12/06/18 at 18:30 Glucose (Glutose) 15 gm Q15M PRN PO DECREASED GLUCOSE; Start 12/06/18 at 18:30 Glucose (Glutose) 22.5 gm Q15M PRN PO DECREASED GLUCOSE; Start 12/06/18 at 18:30 Dextrose (D50w Syringe) 25 ml Q15M PRN IV DECREASED GLUCOSE; Start 12/06/18 at 18:30 Dextrose (D50w Syringe) 50 ml Q15M PRN IV DECREASED GLUCOSE; Start 12/06/18 at 18:30 Glucagon (Glucagen) 1 mg Q15M PRN IM DECREASED GLUCOSE; Start 12/06/18 at 18:30 Glucose (Glutose) 15 gm Q15M PRN BUCCAL DECREASED GLUCOSE; Start 12/06/18 at 18:30 Metoprolol Tartrate (Lopressor) 50 mg BID PO ; Start 12/07/18 at 21:00 Rivaroxaban (Xarelto) 20 mg WITH DINNER PO Last administered on 12/07/18at 18:54; Admin Dose 20 MG; Start 12/07/18 at 17:35 Doxycycline Hyclate (Vibramycin) 100 mg BID PO ; Start 12/07/18 at 21:00; Stop 12/12/18 at 09:01 BRODIE ROE Dec 07, 2018 19:27
[2018-12-07] MEDS: METOPROLOL 50 MG TAB PO SCH (20:29)
[2018-12-07] MEDS: DOXYCYCLINE 100 MG TAB PO SCH (20:38)
[2018-12-07] MEDS: INSULIN GLARGINE [LANTus] (100 UNITS/ML) SYG SC SCH (20:41)
[2018-12-07] MEDS: ATORVASTATIN 20 MG TAB PO SCH (21:29)
[2018-12-08] VITALS (12 sets, daily range): BP systolic 111–172; BP diastolic 62–81; PULSE 63–79; RESP 17–22
[2018-12-08] MEDS: INSULIN ASPART [NOVOLOG] 3 ML PEN SC SCH ×9 (01:00→21:50)
[2018-12-08] MEDS: ACCU-CHEK XX SCH (01:55)
[2018-12-08] MEDS: traMADol 50 MG TAB PO PRN ×3 (04:19→21:37)
[2018-12-08] MEDS ORDERED: POTASSIUM CHLORIDE (SR) 20 MEQ TAB PO ONE (06:41)
--- NOTE | 2018-12-08 06:45 | PN ---
Date/Time of Note Date/Time of Note DATE: 12/08/18 TIME: 06:44 Assessment/Plan VTE Prophylaxis Risk score (from Nsg)>0 risk: 3 SCD contraindicated: patient refusal (Pain ) Pharmacological prophylaxis: rivaroxaban Lines/Catheters IV Catheter Type (from Nrsg): Peripheral IV Urinary Cath still in place: No Assessment/Plan Hospital Course S: feels better, L albert pain after accidental fall a few days ago, also with pain and bruising R knee and bruising R albert O: Constitutional: alert, oriented, no distress Head: atraumatic, normocephalic Neck: non-tender, supple Respiratory: clear to auscultation Cardiovascular: irregular rhythm, rate controlled Gastrointestinal: S/ NT / ND / +BS Extremities: no edema, good radial pulses, bruising on anterior lower 1/3 L leg, also with pain and bruising R knee and bruising R albert assessment and plan: 63-year-old female who had presented with left-sided chest pain, mild shortness of breath and occasional cough, admitted and managed as follows 1. New onset, versus new diagnosis A. fib with RVR -has converted back to sinus -plan to dc on metoprolol -continue Xarelto 2. Chest pain with radiation to left shoulder and left neck, rule out acute coronary syndrome -trop neg x 3 -echo with oreserved EF but difficult study 2/2 afib -no more cp, f/u cardio final recs 3. Respiratory tract infection, likely viral -concern for infiltrate on CXR and patient had been told she had a PNA, complete tx with doxycycline 4. Chronic dyslipidemia on statin therapy -continue statin 5. Chronic diabetes mellitus type 2 on oral hypoglycemic therapy -continue basal and premeal insulin while inhouse and transition back to oral at discharge 6. Chronic kidney disease stage II? EGFR 58 -f/u am bmp 7. Rule out CHF, BNP elevated 8. Mild leukocytosis likely secondary to #3 9. Hypomagnesemia and hypophosphatemia : -replete 10. Mild TSH elevation but with normal free T4, -recommend repeat in 6 week s 11. L leg bruising -XR, pain control, Nsaids? -PT, r/o DVT dispo : - was to be discharged today, but pain in RLE is limiting walking. Patient is concerned as fall was about a week ago and pain is only just limiting ambulation now Plan of care has been discussed in detail with the patient, questions have been answered. Care time >35mins Result Diagram: 12/08/18 0513 12/08/18 0513 Results 24hrs Laboratory Tests Test 12/07/18 08:23 12/07/18 12:47 12/07/18 18:39 12/07/18 20:34 Bedside Glucose 138 131 128 118 Test 12/08/18 01:47 12/08/18 05:13 Bedside Glucose 144 White Blood Count 7.9 Red Blood Count 3.69 L Hemoglobin 11.3 L Hematocrit 33.7 L Mean Corpuscular 91.3 Volume Mean Corpuscular 30.6 Hemoglobin Mean Corpuscular 33.5 Hemoglobin Concent Red Cell 13.0 Distribution Width Platelet Count 206 Mean Platelet Volume 10.5 H Immature 0.400 Granulocytes % Neutrophils % 74.2 Lymphocytes % 15.6 Monocytes % 8.6 Eosinophils % 1.1 Basophils % 0.1 Nucleated Red Blood 0.0 Cells % Immature 0.030 Granulocytes # Neutrophils # 5.9 Lymphocytes # 1.2 Monocytes # 0.7 Eosinophils # 0.1 Basophils # 0.0 Nucleated Red Blood 0.0 Cells # Sodium Level 139 Potassium Level 3.4 L Chloride Level 103 Carbon Dioxide Level 28 Anion Gap 8 # Blood Urea Nitrogen 24 H Creatinine 0.72 Est Glomerular > 60 Filtrat Rate mL/min Glucose Level 134 # Calcium Level 9.7 Phosphorus Level 2.7 Magnesium Level 1.0 L Exam/Review of Systems Exam Vitals Vital Signs Date Temp Pulse Resp B/P (MAP) Pulse Ox O2 O2 Flow FiO2 Time Delivery Rate 12/08/18 71 04:10 12/08/18 98.1 22 172/79 95 04:00 (110) 12/07/18 Room Air 20:00 12/07/18 2.0 08:00 12/07/18 27 02:22 Intake and Output 12/07/18 12/07/18 12/08/18 1515:00 23:00 07:00 IntakeIntake Total 253.6 ml 490.1 ml 240 ml BalanceBalance 253.6 ml 490.1 ml 240 ml Results Results 24hrs Laboratory Tests Test 12/07/18 08:23 12/07/18 12:47 12/07/18 18:39 12/07/18 20:34 Bedside Glucose 138 131 128 118 Test 12/08/18 01:47 12/08/18 05:13 Bedside Glucose 144 White Blood Count 7.9 Red Blood Count 3.69 L Hemoglobin 11.3 L Hematocrit 33.7 L Mean Corpuscular 91.3 Volume Mean Corpuscular 30.6 Hemoglobin Mean Corpuscular 33.5 Hemoglobin Concent Red Cell 13.0 Distribution Width Platelet Count 206 Mean Platelet Volume 10.5 H Immature 0.400 Granulocytes % Neutrophils % 74.2 Lymphocytes % 15.6 Monocytes % 8.6 Eosinophils % 1.1 Basophils % 0.1 Nucleated Red Blood 0.0 Cells % Immature 0.030 Granulocytes # Neutrophils # 5.9 Lymphocytes # 1.2 Monocytes # 0.7 Eosinophils # 0.1 Basophils # 0.0 Nucleated Red Blood 0.0 Cells # Sodium Level 139 Potassium Level 3.4 L Chloride Level 103 Carbon Dioxide Level 28 Anion Gap 8 # Blood Urea Nitrogen 24 H Creatinine 0.72 Est Glomerular > 60 Filtrat Rate mL/min Glucose Level 134 # Calcium Level 9.7 Phosphorus Level 2.7 Magnesium Level 1.0 L Medications Medication Current Medications Acetaminophen (Tylenol Tab) 500 mg Q6 PRN PO MILD PAIN(1-3)OR ELEVATED TEMP Last administered on 12/07/18 23:58; Admin Dose 500 MG; Start 12/06/18 at 10:30 Albuterol (Ventolin Hfa) 2 puff Q4H PRN INH WHEEZING AND SOB Last administered on 12/06/18 21:45; Admin Dose 2 PUFF; Start 12/06/18 at 10:30 Atorvastatin Calcium (Lipitor) 20 mg QHS PO Last administered on 12/07/18 21:29; Admin Dose 20 MG; Start 12/06/18 at 21:00 Cholecalciferol (Vitamin D) 2,000 unit DAILY PO Last administered on 12/07/18 08:20; Admin Dose 2,000 UNIT; Start 12/07/18 at 09:00 Diagnostic Test (Pha) (Accu-Chek) 1 ea 02 XX Last administered on 12/07/18 01:44; Admin Dose 1 EA; Start 12/07/18 at 02:00 Insulin Glargine (Lantus) 14 units DAILY@2000 SC Last administered on 12/07/18 20:41; Admin Dose 14 UNITS; Start 12/06/18 at 20:00 Insulin Aspart (Novolog Insulin Pen) 5 unit WITH MEALS SC Last administered on 12/07/18at 18:52; Admin Dose 5 UNIT; Start 12/06/18 at 19:00 Insulin Aspart (Novolog Insulin Pen) NOVOLOG *MILD* ALGORI... Q4 SC Last administered on 12/06/18at 21:04; Admin Dose 1 UNIT; Start 12/06/18 at 21:00 Miscellaneous Information 1 ea NOTE XX ; Start 12/06/18 at 18:30 Glucose (Glutose) 15 gm Q15M PRN PO DECREASED GLUCOSE; Start 12/06/18 at 18:30 Glucose (Glutose) 22.5 gm Q15M PRN PO DECREASED GLUCOSE; Start 12/06/18 at 18:30 Dextrose (D50w Syringe) 25 ml Q15M PRN IV DECREASED GLUCOSE; Start 12/06/18 at 18:30 Dextrose (D50w Syringe) 50 ml Q15M PRN IV DECREASED GLUCOSE; Start 12/06/18 at 18:30 Glucagon (Glucagen) 1 mg Q15M PRN IM DECREASED GLUCOSE; Start 12/06/18 at 18:30 Glucose (Glutose) 15 gm Q15M PRN BUCCAL DECREASED GLUCOSE; Start 12/06/18 at 1 8:30 Metoprolol Tartrate (Lopressor) 50 mg BID PO Last administered on 12/07/18at 20:29; Admin Dose 50 MG; Start 12/07/18 at 21:00 Rivaroxaban (Xarelto) 20 mg WITH DINNER PO Last administered on 12/07/18at 18:54; Admin Dose 20 MG; Start 12/07/18 at 17:35 Doxycycline Hyclate (Vibramycin) 100 mg BID PO Last administered on 12/07/18at 20:38; Admin Dose 100 MG; Start 12/07/18 at 21:00; Stop 12/12/18 at 09:01 Tramadol HCl (Ultram) 50 mg Q6H PRN PO MODERATE PAIN LEVEL 4-6 Last administered on 12/08/18at 04:19; Admin Dose 50 MG; Start 12/08/18 at 04:00 Potassium Chloride 100 ml @ 50 mls/hr ONCE ONCE IVPB ; Start 12/08/18 at 07:00; Stop 12/08/18 at 08:59 Magnesium Sulfate 100 ml @ 25 mls/hr ONCE ONCE IVPB ; Start 12/08/18 at 07:00; Stop 12/08/18 at 10:59 BRODIE ROE Dec 08, 2018 06:45
[2018-12-08] MEDS ORDERED: MAGNESIUM SULFATE 4 GM/100 ML 100 ML IVPB ONE (07:00)
[2018-12-08] MEDS ORDERED: POTASSIUM CHLORIDE 100 ML IVPB ONE (07:00)
[2018-12-08] MEDS: METOPROLOL 50 MG TAB PO SCH ×2 (09:47→21:36)
[2018-12-08] MEDS: DOXYCYCLINE 100 MG TAB PO SCH ×2 (09:47→21:37)
[2018-12-08] MEDS: LISINOPRIL 20 MG TAB PO SCH (09:48)
[2018-12-08] MEDS: CHOLECALCIFEROL 1,000 UNIT TAB PO SCH (09:48)
--- NOTE | 2018-12-08 13:32 | CONS ---
Assessment/Plan Cardiology NYHA: II Heart Failure Type: Acute Heart Failure Type: Diastolic Assessment/Plan Hospital Course (Demo Recall) Assessment: Paroxysmal atrial fibrillation - new diagnosis and rapid ventricular response on presentation, reverted to sinus rhythm on amiodarone drip, CHADS2 score of 2 Acute diastolic heart failure - echocardiogram with preserved LVEF, improved with heart rate control and diuresis Chest pain - ruled out for myocardial infarction Hypertension Dyslipidemia Diabetes mellitus Possible upper respiratory tract infection or pneumonia - on antibiotics Hypokalemia and hypomagnesemia Recommendations: -replete potassium and magnesium -continue off antiarrhythmics -continue metoprolol 50mg BID -continue Xarelto 20mg daily for atrial fibrillation thromboembolic prophylaxis -continue atorvastatin 20mg daily Stable for discharged from cardiac standpoint. Consultation Date/Type/Reason Admit Date/Time Dec 06, 2018 at 07:47 Initial Consult Date Type of Consult Cardiology Date/Time of Note DATE: 12/08/18 TIME: 13:30 24 HR Interval Summary Free Text/Dictation Sinus rhythm. Breathing comfortably on room air. Detailed Summary Additional Comments 14 point review of systems without changes. Exam/Review of Systems Vital Signs Vitals Vital Signs Date Temp Pulse Resp B/P (MAP) Pulse Ox O2 O2 Flow FiO2 Time Delivery Rate 12/08/18 65 12:06 12/08/18 98.5 19 155/81 95 11:13 (105) 12/07/18 Room Air 20:00 12/07/18 2.0 08:00 12/07/18 27 02:22 Intake and Output 12/07/18 12/07/18 12/08/18 1515:00 23:00 07:00 IntakeIntake Total 253.6 ml 490.1 ml 240 ml BalanceBalance 253.6 ml 490.1 ml 240 ml Exam Exam Constitutional: alert, well developed Psych: no complaints, nl mood/affect Head: normocephalic, atraumatic Eyes: nl conjunctiva, nl lids ENMT: nl external ears & nose, nl nasal mucosa & septum Neck: supple, non-tender Respiratory: crackles/rales, diminished breath sounds Cardiovascular: regular rate and rhythm Gastrointestinal: soft, non-tender Musculoskeletal: nl extremities to inspection Extremities: No cyanosis, No clubbing, No edema Neurological: nl mental status, nl speech Labs Result Diagram: 12/08/1851212/08/18512 Results 24hrs Laboratory Tests Test 12/07/18 18:39 12/07/18 20:34 12/08/18 01:47 12/08/18 05:13 Bedside Glucose 128 118 144 White Blood Count 7.9 Red Blood Count 3.69 L Hemoglobin 11.3 L Hematocrit 33.7 L Mean Corpuscular 91.3 Volume Mean Corpuscular 30.6 Hemoglobin Mean Corpuscular 33.5 Hemoglobin Concent Red Cell 13.0 Distribution Width Platelet Count 206 Mean Platelet Volume 10.5 H Immature 0.400 Granulocytes % Neutrophils % 74.2 Lymphocytes % 15.6 Monocytes % 8.6 Eosinophils % 1.1 Basophils % 0.1 Nucleated Red Blood 0.0 Cells % Immature 0.030 Granulocytes # Neutrophils # 5.9 Lymphocytes # 1.2 Monocytes # 0.7 Eosinophils # 0.1 Basophils # 0.0 Nucleated Red Blood 0.0 Cells # Sodium Level 139 Potassium Level 3.4 L Chloride Level 103 Carbon Dioxide Level 28 Anion Gap 8 # Blood Urea Nitrogen 24 H Creatinine 0.72 Est Glomerular > 60 Filtrat Rate mL/min Glucose Level 134 # Calcium Level 9.7 Phosphorus Level 2.7 Magnesium Level 1.0 L Test 12/08/18 08:12 12/08/18 12:06 Bedside Glucose 131 135 Medications Medications Current Medications Acetaminophen (Tylenol Tab) 500 mg Q6 PRN PO MILD PAIN(1-3)OR ELEVATED TEMP Las t administered on 12/07/18 23:58; Admin Dose 500 MG; Start 12/06/18 at 10:30 Albuterol (Ventolin Hfa) 2 puff Q4H PRN INH WHEEZING AND SOB Last administered on 12/06/18 21:45; Admin Dose 2 PUFF; Start 12/06/18 at 10:30 Atorvastatin Calcium (Lipitor) 20 mg QHS PO Last administered on 12/07/18 21: 29; Admin Dose 20 MG; Start 12/06/18 at 21:00 Cholecalciferol (Vitamin D) 2,000 unit DAILY PO Last administered on 12/08/18 09:48; Admin Dose 2,000 UNIT; Start 12/07/18 at 09:00 Diagnostic Test (Pha) (Accu-Chek) 1 ea 02 XX Last administered on 12/07/18 01:44; Admin Dose 1 EA; Start 12/07/18 at 02:00 Insulin Glargine (Lantus) 14 units DAILY@2000 SC Last administered on 12/07/18at 20:41; Admin Dose 14 UNITS; Start 12/06/18 at 20:00 Insulin Aspart (Novolog Insulin Pen) 5 unit WITH MEALS SC Last administered on 12/08/18at 12:15; Admin Dose 5 UNIT; Start 12/06/18 at 19:00 Insulin Aspart (Novolog Insulin Pen) NOVOLOG *MILD* ALGORI... Q4 SC Last administered on 12/06/18at 21:04; Admin Dose 1 UNIT; Start 12/06/18 at 21:00 Miscellaneous Information 1 ea NOTE XX ; Start 12/06/18 at 18:30 Glucose (Glutose) 15 gm Q15M PRN PO DECREASED GLUCOSE; Start 12/06/18 at 18:30 Glucose (Glutose) 22.5 gm Q15M PRN PO DECREASED GLUCOSE; Start 12/06/18 at 18:30 Dextrose (D50w Syringe) 25 ml Q15M PRN IV DECREASED GLUCOSE; Start 12/06/18 at 18:30 Dextrose (D50w Syringe) 50 ml Q15M PRN IV DECREASED GLUCOSE; Start 12/06/18 at 18:30 Glucagon (Glucagen) 1 mg Q15M PRN IM DECREASED GLUCOSE; Start 12/06/18 at 18:30 Glucose (Glutose) 15 gm Q15M PRN BUCCAL DECREASED GLUCOSE; Start 12/06/18 at 18:30 Metoprolol Tartrate (Lopressor) 50 mg BID PO Last administered on 12/08/18at 09:47; Admin Dose 50 MG; Start 12/07/18 at 21:00 Rivaroxaban (Xarelto) 20 mg WITH DINNER PO Last administered on 12/07/18 18:54; Admin Dose 20 MG; Start 12/07/18 at 17:35 Doxycycline Hyclate (Vibramycin) 100 mg BID PO Last administered on 12/08/18 09:47; Admin Dose 100 MG; Start 12/07/18 at 21:00; Stop 12/12/18 at 09:01 Tramadol HCl (Ultram) 50 mg Q6H PRN PO MODERATE PAIN LEVEL 4-6 Last administered on 12/08/18at 10:39; Admin Dose 50 MG; Start 12/08/18 at 04:00 Lisinopril (Zestril) 20 mg DAILY PO Last administered on 12/08/18at 09:48; Admin Dose 20 MG; Start 12/08/18 at 09:00 ALLEN DEVINE MD Dec 08, 2018 13:32
[2018-12-08] MEDS ORDERED: KETOROLAC 30 MG INJ IM STA (15:46)
[2018-12-08] MEDS: ATORVASTATIN 20 MG TAB PO SCH (21:35)
[2018-12-08] MEDS: RIVAROXABAN 20 MG TABLET PO SCH (21:36)
[2018-12-08] MEDS: INSULIN GLARGINE [LANTus] (100 UNITS/ML) SYG SC SCH (21:50)
[2018-12-09] VITALS (11 sets, daily range): BP systolic 120–150; BP diastolic 63–67; PULSE 58–86; RESP 17–20
[2018-12-09] MEDS: INSULIN ASPART [NOVOLOG] 3 ML PEN SC SCH ×6 (01:00→17:08)
[2018-12-09] MEDS: ACCU-CHEK XX SCH (02:00)
[2018-12-09] MEDS: LISINOPRIL 20 MG TAB PO SCH (08:15)
[2018-12-09] MEDS: DOXYCYCLINE 100 MG TAB PO SCH ×2 (08:16→20:09)
[2018-12-09] MEDS: METOPROLOL 50 MG TAB PO SCH ×2 (08:16→20:10)
[2018-12-09] MEDS: CHOLECALCIFEROL 1,000 UNIT TAB PO SCH (08:16)
--- NOTE | 2018-12-09 12:51 | PN ---
Date/Time of Note Date/Time of Note DATE: 12/09/18 TIME: 12:47 Assessment/Plan VTE Prophylaxis Risk score (from Nsg)>0 risk: 3 SCD applied (from Ns): No SCD contraindicated: other Pharmacological prophylaxis: rivaroxaban Lines/Catheters IV Catheter Type (from Nrs): Saline Lock Urinary Cath still in place: No Assessment/Plan Hospital Course S: Heart rate stable overnight, worked with physical therapy team earlier today. Family patient had a lot of questions about plan of care - answered at bedside today. O: VS -see below Constitutional: alert, oriented, no distress Head: atraumatic, normocephalic Neck: non-tender, supple Respiratory: clear to auscultation Cardiovascular: irregular rhythm, rate controlled Gastrointestinal: S/ NT / ND / +BS Extremities: no edema, good radial pulses, bruising on anterior lower 1/3 L leg, also with pain and bruising R knee and bruising R albert Right knee x-ray: IMPRESSION: 1. Large joint effusion which can be seen with synovitis and reflect soft tissue injury such as a meniscal tear and/or ligament injury. 2. No acute fracture or dislocation is seen. 3. Tricompartmental degenerative arthrosis. Assessment and plan: : 63-year-old female who had presented with left-sided chest pain, mild shortness of breath and occasional cough, admitted and managed as follows: 1. New onset, versus new diagnosis A. fib with RVR-now rate controlled, seen by cardiology team -Per cardiology continue beta-césar and SUPRIYA inhibitor -continue Xarelto 2. Chest pain with radiation to left shoulder and left neck -has ruled out for acute coronary syndrome-echo with oreserved EF but difficult study 2/2 afib -no more cp, f/u cardio final recs 3. Respiratory tract infection, likely viral -concern for infiltrate on CXR and patient had been told she had a PNA, complete tx with doxycycline till December 12, 2018 4. Chronic dyslipidemia on statin therapy -continue statin 5. Chronic diabetes mellitus type 2 on oral hypoglycemic therapy -continue basal and premeal insulin while inhouse and transition back to oral at discharge 6. Chronic kidney disease stage II? EGFR 58 -f/u am bmp 7. Rule out CHF, BNP elevated 8. Mild leukocytosis likely secondary to #3 9. Hypomagnesemia and hypophosphatemia -repleted yesterday -We will check levels today 10. Mild TSH elevation but with normal free T4, -recommend repeat thyroid function tests in 6 weeks 11. L leg bruising -XR, pain control, Nsaids? -PT dispo : -Plan for SNF placement versus home with home health PT -order for case manag ement has been placed and they will investigate this now Plan of care has been discussed in detail with the patient, questions have been answered. Result Diagram: 12/09/18 0515 12/09/18 0515 Results 24hrs Laboratory Tests Test 12/08/18 17:30 12/08/18 21:42 12/09/18 01:56 12/09/18 05:15 Bedside Glucose 100 201 127 White Blood Count 5.5 # Red Blood Count 3.57 L Hemoglobin 10.8 L Hematocrit 33.0 L Mean Corpuscular 92.4 Volume Mean Corpuscular 30.3 Hemoglobin Mean Corpuscular 32.7 Hemoglobin Concent Red Cell 13.2 Distribution Width Platelet Count 212 Mean Platelet Volume 10.5 H Immature 0.200 Granulocytes % Neutrophils % 59.7 Lymphocytes % 25.9 Monocytes % 11.1 H Eosinophils % 2.9 Basophils % 0.2 Nucleated Red Blood 0.0 Cells % Immature 0.010 Granulocytes # Neutrophils # 3.3 Lymphocytes # 1.4 Monocytes # 0.6 Eosinophils # 0.2 Basophils # 0.0 Nucleated Red Blood 0.0 Cells # Sodium Level 138 Potassium Level 3.9 Chloride Level 104 Carbon Dioxide Level 25 Anion Gap 9 Blood Urea Nitrogen 34 H Creatinine 0.93 Est Glomerular > 60 Filtrat Rate mL/min Glucose Level 136 Calcium Level 9.9 Test 12/09/18 08:05 12/09/18 09:02 12/09/18 11:33 Bedside Glucose 128 163 127 Exam/Review of Systems Exam Vitals Vital Signs Date Temp Pulse Resp B/P (MAP) Pulse Ox O2 O2 Flow FiO2 Time Delivery Rate 12/09/18 71 12:00 12/09/18 97.2 20 120/63 94 11:20 (82) 12/09/18 Nasal 1.5 08:00 Cannula 12/07/18 27 02:22 Intake and Output 12/08/18 12/08/18 12/09/18 1515:00 23:00 07:00 IntakeIntake Total 850 ml 500 ml BalanceBalance 850 ml 500 ml Results Results 24hrs Laboratory Tests Test 12/08/18 17:30 12/08/18 21:42 12/09/18 01:56 12/09/18 05:15 Bedside Glucose 100 201 127 White Blood Count 5.5 # Red Blood Count 3.57 L Hemoglobin 10.8 L Hematocrit 33.0 L Mean Corpuscular 92.4 Volume Mean Corpuscular 30.3 Hemoglobin Mean Corpuscular 32.7 Hemoglobin Concent Red Cell 13.2 Distribution Width Platelet Count 212 Mean Platelet Volume 10.5 H Immature 0.200 Granulocytes % Neutrophils % 59.7 Lymphocytes % 25.9 Monocytes % 11.1 H Eosinophils % 2.9 Basophils % 0.2 Nucleated Red Blood 0.0 Cells % Immature 0.010 Granulocytes # Neutrophils # 3.3 Lymphocytes # 1.4 Monocytes # 0.6 Eosinophils # 0.2 Basophils # 0.0 Nucleated Red Blood 0.0 Cells # Sodium Level 138 Potassium Level 3.9 Chloride Level 104 Carbon Dioxide Level 25 Anion Gap 9 Blood Urea Nitrogen 34 H Creatinine 0.93 Est Glomerular > 60 Filtrat Rate mL/min Glucose Level 136 Calcium Level 9.9 Test 12/09/18 08:05 12/09/18 09:02 12/09/18 11:33 Bedside Glucose 128 163 127 Medications Medication Current Medications Acetaminophen (Tylenol Tab) 500 mg Q6 PRN PO MILD PAIN(1-3)OR ELEVATED TEMP Last administered on 12/07/18at 23:58; Admin Dose 500 MG; Start 12/06/18 at 10:30 Albuterol (Ventolin Hfa) 2 puff Q4H PRN INH WHEEZING AND SOB Last administered on 12/06/18 21:45; Admin Dose 2 PUFF; Start 12/06/18 at 10:30 Atorvastatin Calcium (Lipitor) 20 mg QHS PO Last administered on 12/08/18 21:35; Admin Dose 20 MG; Start 12/06/18 at 21:00 Cholecalciferol (Vitamin D) 2,000 unit DAILY PO Last administered on 12/09/18 08:16; Admin Dose 2,000 UNIT; Start 12/07/18 at 09:00 Diagnostic Test (Pha) (Accu-Chek) 1 ea 02 XX Last administered on 12/07/18at 0 1:44; Admin Dose 1 EA; Start 12/07/18 at 02:00 Insulin Glargine (Lantus) 14 units DAILY@2000 SC Last administered on 12/08/18at 21:50; Admin Dose 14 UNITS; Start 12/06/18 at 20:00 Insulin Aspart (Novolog Insulin Pen) 5 unit WITH MEALS SC Last administered on 12/09/18at 11:37; Admin Dose 5 UNIT; Start 12/06/18 at 19:00 Miscellaneous Information 1 ea NOTE XX ; Start 12/06/18 at 18:30 Glucose (Glutose) 15 gm Q15M PRN PO DECREASED GLUCOSE; Start 12/06/18 at 18:30 Glucose (Glutose) 22.5 gm Q15M PRN PO DECREASED GLUCOSE; Start 12/06/18 at 18:30 Dextrose (D50w Syringe) 25 ml Q15M PRN IV DECREASED GLUCOSE; Start 12/06/18 at 18:30 Dextrose (D50w Syringe) 50 ml Q15M PRN IV DECREASED GLUCOSE; Start 12/06/18 at 18:30 Glucagon (Glucagen) 1 mg Q15M PRN IM DECREASED GLUCOSE; Start 12/06/18 at 18:30 Glucose (Glutose) 15 gm Q15M PRN BUCCAL DECREASED GLUCOSE; Start 12/06/18 at 18:30 Metoprolol Tartrate (Lopressor) 50 mg BID PO Last administered on 12/09/18at 08:16; Admin Dose 50 MG; Start 12/07/18 at 21:00 Rivaroxaban (Xarelto) 20 mg WITH DINNER PO Last administered on 12/08/18at 21:36; Admin Dose 20 MG; Start 12/07/18 at 17:35 Doxycycline Hyclate (Vibramycin) 100 mg BID PO Last administered on 12/09/18at 08:16; Admin Dose 100 MG; Start 12/07/18 at 21:00; Stop 12/12/18 at 09:01 Tramadol HCl (Ultram) 50 mg Q6H PRN PO MODERATE PAIN LEVEL 4-6 Last administered on 12/08/18at 21:37; Admin Dose 50 MG; Start 12/08/18 at 04:00 Lisinopril (Zestril) 20 mg DAILY PO Last administered on 12/09/18at 08:15; Admin Dose 20 MG; Start 12/08/18 at 09:00 Insulin Aspart (Novolog Insulin Pen) (Adult SC Insulin - Mild Algorithm)... AC MEALS AND BEDTIME SC ; Start 12/09/18 at 17:30 AMBER PALACIOS Dec 09, 2018 12:51
--- NOTE | 2018-12-09 13:55 | CONS ---
Assessment/Plan Cardiology NYHA: II Heart Failure Type: Acute Heart Failure Type: Diastolic Assessment/Plan Hospital Course (Demo Recall) Assessment: Paroxysmal atrial fibrillation - new diagnosis and rapid ventricular response on presentation, reverted to sinus rhythm on amiodarone drip, CHADS2 score of 2 Acute diastolic heart failure - echocardiogram with preserved LVEF, improved with heart rate control and diuresis Chest pain - ruled out for myocardial infarction Hypertension Dyslipidemia Diabetes mellitus Possible upper respiratory tract infection or pneumonia - on antibiotics Recommendations: -continue off antiarrhythmics -continue metoprolol 50mg BID -continue Xarelto 20mg daily for atrial fibrillation thromboembolic prophylaxis -continue atorvastatin 20mg daily Stable for discharge from cardiac standpoint. Possible SNF placement. Consultation Date/Type/Reason Admit Date/Time Dec 06, 2018 at 07:47 Initial Consult Date Type of Consult Cardiology Date/Time of Note DATE: 12/09/18 TIME: 13:53 24 HR Interval Summary Free Text/Dictation No acute events. Detailed Summary Additional Comments 14 point review of systems without changes. Exam/Review of Systems Vital Signs Vitals Vital Signs Date Temp Pulse Resp B/P (MAP) Pulse Ox O2 O2 Flow FiO2 Time Delivery Rate 12/09/18 71 12:00 12/09/18 97.2 20 120/63 94 11:20 (82) 12/09/18 Nasal 1.5 08:00 Cannula 12/07/18 27 02:22 Intake and Output 12/08/18 12/08/18 12/09/18 1515:00 23:00 07:00 IntakeIntake Total 850 ml 500 ml BalanceBalance 850 ml 500 ml Exam Exam Constitutional: alert, well developed Psych: no complaints, nl mood/affect Head: normocephalic, atraumatic Eyes: nl conjunctiva, nl lids ENMT: nl external ears & nose, nl nasal mucosa & septum Neck: supple, non-tender Respiratory: crackles/rales, diminished breath sounds Cardiovascular: regular rate and rhythm Gastrointestinal: soft, non-tender Musculoskeletal: nl extremities to inspection Extremities: No cyanosis, No clubbing, No edema Neurological: nl mental status, nl speech Labs Result Diagram: 12/09/18 0515 12/09/18 0515 Results 24hrs Laboratory Tests Test 12/08/18 17:30 12/08/18 21:42 12/09/18 01:56 12/09/18 05:15 Bedside Glucose 100 201 127 White Blood Count 5.5 # Red Blood Count 3.57 L Hemoglobin 10.8 L Hematocrit 33.0 L Mean Corpuscular 92.4 Volume Mean Corpuscular 30.3 Hemoglobin Mean Corpuscular 32.7 Hemoglobin Concent Red Cell 13.2 Distribution Width Platelet Count 212 Mean Platelet Volume 10.5 H Immature 0.200 Granulocytes % Neutrophils % 59.7 Lymphocytes % 25.9 Monocytes % 11.1 H Eosinophils % 2.9 Basophils % 0.2 Nucleated Red Blood 0.0 Cells % Immature 0.010 Granulocytes # Neutrophils # 3.3 Lymphocytes # 1.4 Monocytes # 0.6 Eosinophils # 0.2 Basophils # 0.0 Nucleated Red Blood 0.0 Cells # Sodium Level 138 Potassium Level 3.9 Chloride Level 104 Carbon Dioxide Level 25 Anion Gap 9 Blood Urea Nitrogen 34 H Creatinine 0.93 Est Glomerular > 60 Filtrat Rate mL/min Glucose Level 136 Calcium Level 9.9 Test 12/09/18 08:05 12/09/18 09:02 12/09/18 11:33 Bedside Glucose 128 163 127 Medications Medications Current Medications Acetaminophen (Tylenol Tab) 500 mg Q6 PRN PO MILD PAIN(1-3)OR ELEVATED TEMP Last administered on 12/07/18 23:58; Admin Dose 500 MG; Start 12/06/18 at 10:30 Albuterol (Ventolin Hfa) 2 puff Q4H PRN INH WHEEZING AND SOB Last administered on 12/06/18 21:45; Admin Dose 2 PUFF; Start 12/06/18 at 10:30 Atorvastatin Calcium (Lipitor) 20 mg QHS PO Last administered on 12/08/18 21:35; Admin Dose 20 MG; Start 12/06/18 at 21:00 Cholecalciferol (Vitamin D) 2,000 unit DAILY PO Last administered on 12/09/18 08:16; Admin Dose 2,000 UNIT; Start 12/07/18 at 09:00 Diagnostic Test (Pha) (Accu-Chek) 1 ea 02 XX Last administered on 12/07/18 01:44; Admin Dose 1 EA; Start 12/07/18 at 02:00 Insulin Glargine (Lantus) 14 units DAILY@2000 SC Last administered on 12/08/18 21:50; Admin Dose 14 UNITS; Start 12/06/18 at 20:00 Insulin Aspart (Novolog Insulin Pen) 5 unit WITH MEALS SC Last administered on 12/09/18at 11:37; Admin Dose 5 UNIT; Start 12/06/18 at 19:00 Miscellaneous Information 1 ea NOTE XX ; Start 12/06/18 at 18:30 Glucose (Glutose) 15 gm Q15M PRN PO DECREASED GLUCOSE; Start 12/06/18 at 18:30 Glucose (Glutose) 22.5 gm Q15M PRN PO DECREASED GLUCOSE; Start 12/06/18 at 18:30 Dextrose (D50w Syringe) 25 ml Q15M PRN IV DECREASED GLUCOSE; Start 12/06/18 at 18:30 Dextrose (D50w Syringe) 50 ml Q15M PRN IV DECREASED GLUCOSE; Start 12/06/18 at 18:30 Glucagon (Glucagen) 1 mg Q15M PRN IM DECREASED GLUCOSE; Start 12/06/18 at 18:30 Glucose (Glutose) 15 gm Q15M PRN BUCCAL DECREASED GLUCOSE; Start 12/06/18 at 18:30 Metoprolol Tartrate (Lopressor) 50 mg BID PO Last administered on 12/09/18at 08:16; Admin Dose 50 MG; Start 12/07/18 at 21:00 Rivaroxaban (Xarelto) 20 mg WITH DINNER PO Last administered on 12/08/18at 21:36; Admin Dose 20 MG; Start 12/07/18 at 17:35 Doxycycline Hyclate (Vibramycin) 100 mg BID PO Last administered on 12/09/18at 08:16; Admin Dose 100 MG; Start 12/07/18 at 21:00; Stop 12/12/18 at 09:01 Tramadol HCl (Ultram) 50 mg Q6H PRN PO MODERATE PAIN LEVEL 4-6 Last administered on 12/08/18at 21:37; Admin Dose 50 MG; Start 12/08/18 at 04:00 Lisinopril (Zestril) 20 mg DAILY PO Last administered on 12/09/18 08:15; Admin Dose 20 MG; Start 12/08/18 at 09:00 Insulin Aspart (Novolog Insulin Pen) (Adult SC Insulin - Mild Algorithm)... AC MEALS AND BEDTIME SC ; Start 12/09/18 at 17:30 ALLEN DEVINE MD Dec 09, 2018 13:54
[2018-12-09] MEDS ORDERED: MAGNESIUM SULFATE 2 GM/50 ML 50 ML IVPB ONE (16:00)
[2018-12-09] MEDS: RIVAROXABAN 20 MG TABLET PO SCH (17:03)
[2018-12-09] MEDS: Insulin NOVOLOG SS MILD Algorithm (SS with meals and bedtime) SC SCH ×2 (17:04→20:23)
[2018-12-09] MEDS ORDERED: INSULIN ASPART [NOVOLOG] 3 ML PEN SC SCH (17:30)
[2018-12-09] MEDS: ATORVASTATIN 20 MG TAB PO SCH (20:10)
[2018-12-09] MEDS: INSULIN GLARGINE [LANTus] (100 UNITS/ML) SYG SC SCH (20:24)
[2018-12-10] VITALS (14 sets, daily range): BP systolic 117–146; BP diastolic 66–76; PULSE 63–89; RESP 16–19
[2018-12-10] MEDS: ACCU-CHEK XX SCH (02:01)
[2018-12-10] MEDS ORDERED: MAGNESIUM SULFATE 2 GM/50 ML 50 ML IVPB ONE (07:00)
[2018-12-10] MEDS: INSULIN ASPART [NOVOLOG] 3 ML PEN SC SCH ×3 (08:03→17:20)
[2018-12-10] MEDS: Insulin NOVOLOG SS MILD Algorithm (SS with meals and bedtime) SC SCH ×4 (08:03→20:24)
[2018-12-10] MEDS: CHOLECALCIFEROL 1,000 UNIT TAB PO SCH (08:30)
[2018-12-10] MEDS: DOXYCYCLINE 100 MG TAB PO SCH ×2 (08:30→20:14)
[2018-12-10] MEDS: METOPROLOL 50 MG TAB PO SCH ×2 (08:32→20:15)
[2018-12-10] MEDS: LISINOPRIL 20 MG TAB PO SCH (08:32)
--- NOTE | 2018-12-10 10:03 | PN ---
Date/Time of Note Date/Time of Note DATE: 12/10/18 TIME: 10:00 Assessment/Plan VTE Prophylaxis Risk score (from Nsg)>0 risk: 3 SCD applied (from Nsg): No SCD contraindicated: other Pharmacological prophylaxis: rivaroxaban Lines/Catheters IV Catheter Type (from Nrsg): Saline Lock Urinary Cath still in place: No Assessment/Plan Hospital Course S: Patient seen by PT and cardiology teams yesterday. O: VS -see below Constitutional: alert, oriented, no distress Head: atraumatic, normocephalic Neck: non-tender, supple Respiratory: clear to auscultation Cardiovascular: irregular rhythm, rate controlled Gastrointestinal: S/ NT / ND / +BS Extremities: no edema, good radial pulses, bruising on anterior lower 1/3 L leg, also with pain and bruising R knee and bruising R albert Right knee x-ray: IMPRESSION: 1. Large joint effusion which can be seen with synovitis and reflect soft tissue injury such as a meniscal tear and/or ligament injury. 2. No acute fracture or dislocation is seen. 3. Tricompartmental degenerative arthrosis. Assessment and plan: : 63-year-old female who had presented with left-sided chest pain, mild shortness of breath and occasional cough, admitted and managed as follows: 1. New onset, versus new diagnosis A. fib with RVR-now rate controlled, seen by cardiology team -Per cardiology continue beta-césar and SUPRIYA inhibitor -continue Xarelto 2. Chest pain with radiation to left shoulder and left neck -has ruled out for acute coronary syndrome-echo with oreserved EF but difficult study 2/2 afib -no more cp, f/u cardio final recs 3. Respiratory tract infection, likely viral -concern for infiltrate on CXR and patient had been told she had a PNA, complete tx with doxycycline till December 12, 2018 4. Chronic dyslipidemia on statin therapy -continue statin 5. Chronic diabetes mellitus type 2 on oral hypoglycemic therapy -continue basal and premeal insulin while inhouse and transition back to oral at discharge 6. Chronic kidney disease stage II? EGFR 58 -f/u am bmp 7. Rule out CHF, BNP elevated 8. Mild leukocytosis likely secondary to #3 9. Hypomagnesemia and hypophosphatemia -repleted yesterday -We will check levels today 10. Mild TSH elevation but with normal free T4, -recommend repeat thyroid function tests in 6 weeks 11. L leg bruising -XR, pain control, Nsaids? -PT dispo : -Plan for SNF placement versus home with home health PT - order for case management has been placed and they will investigate this now -yesterday patient was open to both, now apparently she is leaning more towards home with home health PT, again will follow patient in case management on this. Plan of care has been discussed in detail with the patient, questions have been answered. Result Diagram: 12/10/18 0453 12/10/18 0453 Results 24hrs Laboratory Tests Test 12/09/18 11:33 12/09/18 13:17 12/09/18 17:02 12/09/18 20:14 Bedside Glucose 127 132 193 Magnesium Level 1.6 L Test 12/10/18 01:43 12/10/18 04:53 12/10/18 07:48 Bedside Glucose 148 150 White Blood Count 7.0 # Red Blood Count 3.69 L Hemoglobin 11.3 L Hematocrit 33.8 L Mean Corpuscular 91.6 Volume Mean Corpuscular 30.6 Hemoglobin Mean Corpuscular 33.4 Hemoglobin Concent Red Cell 13.1 Distribution Width Platelet Count 243 Mean Platelet Volume 10.5 H Immature 0.300 Granulocytes % Neutrophils % 63.4 Lymphocytes % 24.8 Monocytes % 9.2 Eosinophils % 2.0 Basophils % 0.3 Nucleated Red Blood 0.0 Cells % Immature 0.020 Granulocytes # Neutrophils # 4.5 Lymphocytes # 1.7 Monocytes # 0.7 Eosinophils # 0.1 Basophils # 0.0 Nucleated Red Blood 0.0 Cells # Sodium Level 139 Potassium Level 4.3 Chloride Level 105 Carbon Dioxide Level 26 Anion Gap 8 Blood Urea Nitrogen 34 H Creatinine 0.76 Est Glomerular > 60 Filtrat Rate mL/min Glucose Level 160 Calcium Level 9.9 Phosphorus Level 2.9 Magnesium Level 1.4 L Exam/Review of Systems Exam Vitals Vital Signs Date Temp Pulse Resp B/P (MAP) Pulse Ox O2 O2 Flow FiO2 Time Delivery Rate 12/10/18 75 08:03 12/10/18 98.1 16 142/70 94 07:37 (94) 12/10/18 Nasal 1.0 07:24 Cannula 12/07/18 27 02:22 Intake and Output 12/09/18 12/09/18 12/10/18 1515:00 23:00 07:00 IntakeIntake Total 850 ml 600 ml BalanceBalance 850 ml 600 ml Results Results 24hrs Laboratory Tests Test 12/09/18 11:33 12/09/18 13:17 12/09/18 17:02 12/09/18 20:14 Bedside Glucose 127 132 193 Magnesium Level 1.6 L Test 12/10/18 01:43 12/10/18 04:53 12/10/18 07:48 Bedside Glucose 148 150 White Blood Count 7.0 # Red Blood Count 3.69 L Hemoglobin 11.3 L Hematocrit 33.8 L Mean Corpuscular 91.6 Volume Mean Corpuscular 30.6 Hemoglobin Mean Corpuscular 33.4 Hemoglobin Concent Red Cell 13.1 Distribution Width Platelet Count 243 Mean Platelet Volume 10.5 H Immature 0.300 Granulocytes % Neutrophils % 63.4 Lymphocytes % 24.8 Monocytes % 9.2 Eosinophils % 2.0 Basophils % 0.3 Nucleated Red Blood 0.0 Cells % Immature 0.020 Granulocytes # Neutrophils # 4.5 Lymphocytes # 1.7 Monocytes # 0.7 Eosinophils # 0.1 Basophils # 0.0 Nucleated Red Blood 0.0 Cells # Sodium Level 139 Potassium Level 4.3 Chloride Level 105 Carbon Dioxide Level 26 Anion Gap 8 Blood Urea Nitrogen 34 H Creatinine 0.76 Est Glomerular > 60 Filtrat Rate mL/min Glucose Level 160 Calcium Level 9.9 Phosphorus Level 2.9 Magnesium Level 1.4 L Medications Medication Current Medications Acetaminophen (Tylenol Tab) 500 mg Q6 PRN PO MILD PAIN(1-3)OR ELEVATED TEMP Last administered on 12/07/18at 23:58; Admin Dose 500 MG; Start 12/06/18 at 10:30 Albuterol (Ventolin Hfa) 2 puff Q4H PRN INH WHEEZING AND SOB Last administered on 12/06/18 21:45; Admin Dose 2 PUFF; Start 12/06/18 at 10:30 Atorvastatin Calcium (Lipitor) 20 mg QHS PO Last administered on 12/09/18at 20:10; Admin Dose 20 MG; Start 12/06/18 at 21:00 Cholecalciferol (Vitamin D) 2,000 unit DAILY PO Last administered on 12/10/18at 08:30; Admin Dose 2,000 UNIT; Start 12/07/18 at 09:00 Diagnostic Test (Pha) (Accu-Chek) 1 ea 02 XX Last administered on 12/10/18at 02:01; Admin Dose 1 EA; Start 12/07/18 at 02:00 Insulin Glargine (Lantus) 14 units DAILY@2000 SC Last administered on 12/09/18at 20:24; Admin Dose 14 UNITS; Start 12/06/18 at 20:00 Insulin Aspart (Novolog Insulin Pen) 5 unit WITH MEALS SC Last administered on 12/10/18at 08:03; Admin Dose 5 UNIT; Start 12/06/18 at 19:00 Miscellaneous Information 1 ea NOTE XX ; Start 12/06/18 at 18:30 Glucose (Glutose) 15 gm Q15M PRN PO DECREASED GLUCOSE; Start 12/06/18 at 18:30 Glucose (Glutose) 22.5 gm Q15M PRN PO DECREASED GLUCOSE; Start 12/06/18 at 18:30 Dextrose (D50w Syringe) 25 ml Q15M PRN IV DECREASED GLUCOSE; Start 12/06/18 at 18:30 Dextrose (D50w Syringe) 50 ml Q15M PRN IV DECREASED GLUCOSE; Start 12/06/18 at 18:30 Glucagon (Glucagen) 1 mg Q15M PRN IM DECREASED GLUCOSE; Start 12/06/18 at 18:30 Glucose (Glutose) 15 gm Q15M PRN BUCCAL DECREASED GLUCOSE; Start 12/06/18 at 18:30 Metoprolol Tartrate (Lopressor) 50 mg BID PO Last administered on 12/10/18at 08:32; Admin Dose 50 MG; Start 12/07/18 at 21:00 Rivaroxaban (Xarelto) 20 mg WITH DINNER PO Last administered on 12/09/18at 17:03; Admin Dose 20 MG; Start 12/07/18 at 17:35 Doxycycline Hyclate (Vibramycin) 100 mg BID PO Last administered on 12/10/18at 08:30; Admin Dose 100 MG; Start 12/07/18 at 21:00; Stop 12/12/18 at 09:01 Tramadol HCl (Ultram) 50 mg Q6H PRN PO MODERATE PAIN LEVEL 4-6 Last administered on 12/08/18at 21:37; Admin Dose 50 MG; Start 12/08/18 at 04:00 Lisinopril (Zestril) 20 mg DAILY PO Last administered on 12/10/18at 08:32; Admin Dose 20 MG; Start 12/08/18 at 09:00 Insulin Aspart (Novolog Insulin Pen) (Adult SC Insulin - Mild Algorithm)... AC MEALS AND BEDTIME SC Last administered on 12/10/18at 08:03; Admin Dose 1 UNIT; Start 12/09/18 at 17:30 AMBER PALACIOS Dec 10, 2018 10:02
--- NOTE | 2018-12-10 15:13 | CONS ---
Assessment/Plan Cardiology NYHA: II Heart Failure Type: Acute Heart Failure Type: Diastolic Assessment/Plan Hospital Course (Demo Recall) Assessment: Paroxysmal atrial fibrillation - new diagnosis and rapid ventricular response on presentation, reverted to sinus rhythm on amiodarone drip, CHADS2 score of 2 Acute diastolic heart failure - echocardiogram with preserved LVEF, improved with heart rate control and diuresis Chest pain - ruled out for myocardial infarction Hypertension Dyslipidemia Diabetes mellitus Possible upper respiratory tract infection or pneumonia - completed course of antibiotics Right knee pain and large effusion - ? hemarthrosis from anticoagulation Recommendations: -discontinue Xarelto -arrange for right knee arthrocentesis -continue off antiarrhythmics -continue metoprolol 50mg BID -continue atorvastatin 20mg daily Consultation Date/Type/Reason Admit Date/Time Dec 06, 2018 at 07:47 Initial Consult Date Type of Consult Cardiology Date/Time of Note DATE: 12/10/18 TIME: 15:10 24 HR Interval Summary Free Text/Dictation Continues to complain of right knee pain. Knee x-ray showed large joint effusion. Detailed Summary Additional Comments 14 point review of systems without changes. Exam/Review of Systems Vital Signs Vitals Vital Signs Date Temp Pulse Resp B/P (MAP) Pulse Ox O2 O2 Flow FiO2 Time Delivery Rate 12/10/18 97.9 78 16 134/76 96 14:54 (95) 12/10/18 Nasal 1.0 07:24 Cannula 12/07/18 27 02:22 Intake and Output 12/09/18 12/09/18 12/10/18 1515:00 23:00 07:00 IntakeIntake Total 850 ml 600 ml BalanceBalance 850 ml 600 ml Exam Exam Constitutional: alert, well developed Psych: no complaints, nl mood/affect Head: normocephalic, atraumatic Eyes: nl conjunctiva, nl lids ENMT: nl external ears & nose, nl nasal mucosa & septum Neck: supple, non-tender Respiratory: crackles/rales, diminished breath sounds Cardiovascular: regular rate and rhythm Gastrointestinal: soft, non-tender Musculoskeletal: nl extremities to inspection Extremities: No cyanosis, No clubbing, No edema Neurological: nl mental status, nl speech Labs Result Diagram: 12/10/18 0453 12/10/18 0453 Results 24hrs Laboratory Tests Test 12/09/18 17:02 12/09/18 20:14 12/10/18 01:43 12/10/18 04:53 Bedside Glucose 132 193 148 White Blood Count 7.0 # Red Blood Count 3.69 L Hemoglobin 11.3 L Hematocrit 33.8 L Mean Corpuscular 91.6 Volume Mean Corpuscular 30.6 Hemoglobin Mean Corpuscular 33.4 Hemoglobin Concent Red Cell 13.1 Distribution Width Platelet Count 243 Mean Platelet Volume 10.5 H Immature 0.300 Granulocytes % Neutrophils % 63.4 Lymphocytes % 24.8 Monocytes % 9.2 Eosinophils % 2.0 Basophils % 0.3 Nucleated Red Blood 0.0 Cells % Immature 0.020 Granulocytes # Neutrophils # 4.5 Lymphocytes # 1.7 Monocytes # 0.7 Eosinophils # 0.1 Basophils # 0.0 Nucleated Red Blood 0.0 Cells # Sodium Level 139 Potassium Level 4.3 Chloride Level 105 Carbon Dioxide Level 26 Anion Gap 8 Blood Urea Nitrogen 34 H Creatinine 0.76 Est Glomerular > 60 Filtrat Rate mL/min Glucose Level 160 Calcium Level 9.9 Phosphorus Level 2.9 Magnesium Level 1.4 L Test 12/10/18 07:48 12/10/18 11:52 Bedside Glucose 150 175 Medications Medications Current Medications Acetaminophen (Tylenol Tab) 500 mg Q6 PRN PO MILD PAIN(1-3)OR ELEVATED TEMP Last administered on 12/07/18at 23:58; Admin Dose 500 MG; Start 12/06/18 at 10:30 Albuterol (Ventolin Hfa) 2 puff Q4H PRN INH WHEEZING AND SOB Last administered on 12/06/18at 21:45; Admin Dose 2 PUFF; Start 12/06/18 at 10:30 Atorvastatin Calcium (Lipitor) 20 mg QHS PO Last administered on 12/09/18at 20:10; Admin Dose 20 MG; Start 12/06/18 at 21:00 Cholecalciferol (Vitamin D) 2,000 unit DAILY PO Last administered on 12/10/18 08:30; Admin Dose 2,000 UNIT; Start 12/07/18 at 09:00 Diagnostic Test (Pha) (Accu-Chek) 1 ea 02 XX Last administered on 12/10/18 02:01; Admin Dose 1 EA; Start 12/07/18 at 02:00 Insulin Glargine (Lantus) 14 units DAILY@2000 SC Last administered on 3/16/19at 20:24; Admin Dose 14 UNITS; Start 12/06/18 at 20:00 Insulin Aspart (Novolog Insulin Pen) 5 unit WITH MEALS SC Last administered on 12/10/18at 11:57; Admin Dose 5 UNIT; Start 12/06/18 at 19:00 Miscellaneous Information 1 ea NOTE XX ; Start 12/06/18 at 18:30 Glucose (Glutose) 15 gm Q15M PRN PO DECREASED GLUCOSE; Start 12/06/18 at 18:30 Glucose (Glutose) 22.5 gm Q15M PRN PO DECREASED GLUCOSE; Start 12/06/18 at 18:30 Dextrose (D50w Syringe) 25 ml Q15M PRN IV DECREASED GLUCOSE; Start 12/06/18 at 18:30 Dextrose (D50w Syringe) 50 ml Q15M PRN IV DECREASED GLUCOSE; Start 12/06/18 at 18:30 Glucagon (Glucagen) 1 mg Q15M PRN IM DECREASED GLUCOSE; Start 12/06/18 at 18:30 Glucose (Glutose) 15 gm Q15M PRN BUCCAL DECREASED GLUCOSE; Start 12/06/18 at 18:30 Metoprolol Tartrate (Lopressor) 50 mg BID PO Last administered on 12/10/18at 08:32; Admin Dose 50 MG; Start 12/07/18 at 21:00 Rivaroxaban (Xarelto) 20 mg WITH DINNER PO Last administered on 12/09/18at 17:03; Admin Dose 20 MG; Start 12/07/18 at 17:35 Doxycycline Hyclate (Vibramycin) 100 mg BID PO Last administered on 12/10/18at 0 8:30; Admin Dose 100 MG; Start 12/07/18 at 21:00; Stop 12/12/18 at 09:01 Tramadol HCl (Ultram) 50 mg Q6H PRN PO MODERATE PAIN LEVEL 4-6 Last administered on 12/08/18 21:37; Admin Dose 50 MG; Start 12/08/18 at 04:00 Lisinopril (Zestril) 20 mg DAILY PO Last administered on 12/10/18 08:32; Admin Dose 20 MG; Start 12/08/18 at 09:00 Insulin Aspart (Novolog Insulin Pen) (Adult SC Insulin - Mild Algorithm)... AC MEALS AND BEDTIME SC Last administered on 3/17/19at 11:57; Admin Dose 1 UNIT; Start 12/09/18 at 17:30 ALLEN DEVINE MD Dec 10, 2018 15:13
[2018-12-10] MEDS: ATORVASTATIN 20 MG TAB PO SCH (20:14)
[2018-12-10] MEDS: INSULIN GLARGINE [LANTus] (100 UNITS/ML) SYG SC SCH (20:24)
--- NOTE | 2018-12-10 23:07 | CONS ---
DATE OF ADMISSION: 12/06/2018 DATE OF CONSULTATION: 12/10/2018 HISTORY OF PRESENT ILLNESS: The patient is a 63-year-old retired [employer]. According to the patient, who was admitted on 12/06/2018, she came to the emergency room complaining of left-sided chest pain barrie g with shortness of breath. She was found to have an atrial fibrillation along with possible respira tory tract infection and she was admitted. She obviously is known to have degenerative osteoarthritis of the right knee and orthopedic surgery w as consulted. According to the patient, she had possibly arthroscopic surgery about 2 years ago and have been having pain on and off for the last 2 to 3 years. She may have had a steroid injection int o her right knee in the past. She was having more pain involving her right knee following a recent f all about a week ago even though she landed on her left knee. She is known to have multiple medical problems in the past including diabetes mellitus type 2, chroni c kidney disease and degenerative osteoarthritis. PHYSICAL EXAMINATION: My examination revealed a 63-year-old female who is denying any pain involving right knee. There was an ecchymosis over the anterior aspect of the left knee with minimal swelling . There was mild effusion in the right knee. Range of motion of the right knee was full and pain fr ee at this time. There were no gross instabilities. No local tenderness along the joint line. McMu rray's test was negative, anterior drawer test was negative. X-ray revealed degenerative osteoarthri tis of mild to moderate degree. DIAGNOSTIC IMPRESSION: Degenerative osteoarthritis of the right knee, mild to moderate degree. Stat us post arthroscopic surgery 2 years ago, became more symptomatic after the fall, but now is symptom free. RECOMMENDATIONS FOR TREATMENT. No aggressive management such as steroid injection is not indicated a t this time because the patient is symptom free at this time. It is not unusual to have some symptom atic exacerbation following a twisting injury or fall when they have ongoing chronic degenerative ost eoarthritis. Steroid injection is not recommended because she is asymptomatic at this time. Dictated By: SARA TABOR MD IK/NTS Conf#: [id number] DID#: [id number] CC: BRODIE ROE MD;*EndCC*
[2018-12-11] VITALS (8 sets, daily range): BP systolic 110–138; BP diastolic 57–65; PULSE 68–81; RESP 16–19
[2018-12-11] MEDS: ACCU-CHEK XX SCH (02:00)
[2018-12-11] MEDS: INSULIN ASPART [NOVOLOG] 3 ML PEN SC SCH ×3 (07:42→17:24)
[2018-12-11] MEDS: Insulin NOVOLOG SS MILD Algorithm (SS with meals and bedtime) SC SCH ×3 (07:42→17:24)
[2018-12-11] MEDS: METOPROLOL 50 MG TAB PO SCH (08:17)
[2018-12-11] MEDS: DOXYCYCLINE 100 MG TAB PO SCH (08:18)
[2018-12-11] MEDS: CHOLECALCIFEROL 1,000 UNIT TAB PO SCH (08:18)
[2018-12-11] MEDS: LISINOPRIL 20 MG TAB PO SCH (08:18)
[2018-12-11] MEDS ORDERED: RIVAROXABAN 20 MG TABLET PO ONE (13:30)
[2018-12-11] MEDS ORDERED: RIVA20TA5 PO (15:15)
[2018-12-11] MEDS ORDERED: METO-429 PO (15:15)
--- NOTE | 2018-12-11 15:18 | PDOCDIS ---
Discharge Instructions DIAGNOSIS Discharge Diagnosis Paroxysmal atrial fibrillation CONDITION [id number] Patient Condition: [id number] Good HOME CARE INSTRUCTIONS: [id number] Diet Instructions: [id number] Regular ACTIVITY: [id number] Activity Restrictions: [id number] No Restrictions FOLLOW UP/APPOINTMENTS Follow-up Plan 1. Take all medications as prescribed. 2. Your new medications are Xarelto and metoprolol. The former is a blood thinner to reduce your risk of stroke from atrial fibrillation. The latter will reduce your risk of going into atrial fibrillation in the future. 3. Make an appointment with your primary care doctor in 1-2 weeks. 4. Make an appointment with your gmat tutor in 2-4 weeks. 5. Return to the emergency room if you develop pressure-like chest pain or severe palpitations that do not go away after a few moments of rest. BENITO AG MD Dec 11, 2018 15:18
--- NOTE | 2018-12-11 15:33 | CONS ---
Assessment/Plan Cardiology NYHA: II Heart Failure Type: Acute Heart Failure Type: Diastolic Assessment/Plan Hospital Course (Demo Recall) Assessment: Paroxysmal atrial fibrillation - new diagnosis and rapid ventricular response on presentation, reverted to sinus rhythm on amiodarone drip, CHADS2 score of 2 Acute diastolic heart failure - echocardiogram with preserved LVEF, improved with heart rate control and diuresis Chest pain - ruled out for myocardial infarction Hypertension Dyslipidemia Diabetes mellitus Possible upper respiratory tract infection or pneumonia - completed course of antibiotics Right knee pain and large effusion - seen by orthopedic surgery, thought to be related to osteoarthritis, no arthrocentesis or intervention recommended at this time Recommendations: -resumed on Xarelto 20 mg daily -continue off antiarrhythmics -continue metoprolol 50mg BID -continue atorvastatin 20mg daily Stable for discharge from cardiac standpoint. Consultation Date/Type/Reason Admit Date/Time Dec 06, 2018 at 07:47 Initial Consult Date Type of Consult Cardiology Date/Time of Note DATE: 12/11/18 TIME: 15:31 24 HR Interval Summary Free Text/Dictation Right knee pain and effusion valuated by orthopedic surgery. Detailed Summary Additional Comments 14 point review of systems without changes. Exam/Review of Systems Vital Signs Vitals Vital Signs Date Temp Pulse Resp B/P (MAP) Pulse Ox O2 O2 Flow FiO2 Time Delivery Rate 12/11/18 98.2 74 16 115/65 98 15:10 (82) 12/11/18 Room Air 04:00 12/10/18 1.0 07:24 Intake and Output 12/10/18 12/10/18 12/11/18 1515:00 23:00 07:00 IntakeIntake Total 950 ml 1400 ml BalanceBalance 950 ml 1400 ml Exam Exam Constitutional: alert, well developed Psych: no complaints, nl mood/affect Head: normocephalic, atraumatic Eyes: nl conjunctiva, nl lids ENMT: nl external ears & nose, nl nasal mucosa & septum Neck: supple, non-tender Respiratory: crackles/rales, diminished breath sounds Cardiovascular: regular rate and rhythm Gastrointestinal: soft, non-tender Musculoskeletal: nl extremities to inspection Extremities: No cyanosis, No clubbing, No edema Neurological: nl mental status, nl speech Labs Result Diagram: 12/10/18 0453 12/10/18 0453 Results 24hrs Laboratory Tests Test 12/10/18 17:14 12/10/18 20:13 12/11/18 07:32 12/11/18 12:04 Bedside Glucose 146 166 173 144 Medications Medications Current Medications Acetaminophen (Tylenol Tab) 500 mg Q6 PRN PO MILD PAIN(1-3)OR ELEVATED TEMP Last administered on 12/07/18at 23:58; Admin Dose 500 MG; Start 12/06/18 at 10:30 Albuterol (Ventolin Hfa) 2 puff Q4H PRN INH WHEEZING AND SOB Last administered on 12/06/18 21:45; Admin Dose 2 PUFF; Start 12/06/18 at 10:30 Atorvastatin Calcium (Lipitor) 20 mg QHS PO Last administered on 12/10/18 20:14; Admin Dose 20 MG; Start 12/06/18 at 21:00 Cholecalciferol (Vitamin D) 2,000 unit DAILY PO Last administered on 12/11/18 08:18; Admin Dose 2,000 UNIT; Start 12/07/18 at 09:00 Diagnostic Test (Pha) (Accu-Chek) 1 ea 02 XX Last administered on 12/10/18at 02:01; Admin Dose 1 EA; Start 12/07/18 at 02:00 Insulin Glargine (Lantus) 14 units DAILY@2000 SC Last administered on 12/10/18 20:24; Admin Dose 14 UNITS; Start 12/06/18 at 20:00 Insulin Aspart (Novolog Insulin Pen) 5 unit WITH MEALS SC Last administered on 12/11/18at 12:10; Admin Dose 5 UNIT; Start 12/06/18 at 19:00 Miscellaneous Information 1 ea NOTE XX ; Start 12/06/18 at 18:30 Glucose (Glutose) 15 gm Q15M PRN PO DECREASED GLUCOSE; Start 12/06/18 at 18:30 Glucose (Glutose) 22.5 gm Q15M PRN PO DECREASED GLUCOSE; Start 12/06/18 at 18:30 Dextrose (D50w Syringe) 25 ml Q15M PRN IV DECREASED GLUCOSE; Start 12/06/18 at 18:30 Dextrose (D50w Syringe) 50 ml Q15M PRN IV DECREASED GLUCOSE; Start 12/06/18 at 18:30 Glucagon (Glucagen) 1 mg Q15M PRN IM DECREASED GLUCOSE; Start 12/06/18 at 18:30 Glucose (Glutose) 15 gm Q15M PRN BUCCAL DECREASED GLUCOSE; Start 12/06/18 at 18:30 Metoprolol Tartrate (Lopressor) 50 mg BID PO Last administered on 12/11/18 08:17; Admin Dose 50 MG; Start 12/07/18 at 21:00 Doxycycline Hyclate (Vibramycin) 100 mg BID PO Last administered on 12/11/18 08:18; Admin Dose 100 MG; Start 12/07/18 at 21:00; Stop 12/12/18 at 09:01 Tramadol HCl (Ultram) 50 mg Q6H PRN PO MODERATE PAIN LEVEL 4-6 Last administered on 12/08/18 21:37; Admin Dose 50 MG; Start 12/08/18 at 04:00 Lisinopril (Zestril) 20 mg DAILY PO Last administered on 12/11/18 08:18; Admin Dose 20 MG; Start 12/08/18 at 09:00 Insulin Aspart (Novolog Insulin Pen) (Adult SC Insulin - Mild Algorithm)... AC MEALS AND BEDTIME SC Last administered on 12/11/18 12:10; Admin Dose 1 UNIT; Start 12/09/18 at 17:30 ALLEN DEVINE MD Dec 11, 2018 15:33
--- NOTE | 2018-12-11 19:41 | DS ---
Date/Time of Note Date/Time of Note DATE: 12/11/18 TIME: 19:39 Discharge Summary Admission/Discharge Info Admit Date/Time Dec 06, 2018 at 07:47 Discharge Date/Time Dec 11, 2018 at 17:45 Discharge Diagnosis Paroxysmal atrial fibrillation Patient Condition: Good Hx of Present Illness 63-year-old female with a past medical history of hypertension, diabetes and dyslipidemia who presented to emergency room today with complaints of left-sided chest pain and shortness of breath. The patient states that 2 days ago she had gone to the emergency room at [facility] with complaints of cough and some left- sided chest discomfort. At that time an x-ray was suggestive of a pneumonia and she was discharged on oral antibiotics. She was however not able to purchase the antibiotics because she had a huge [id number] cost and also she had taken nothing. She did not improve, and actually got worse and overnight she continued to have significant left-sided discomfort, she also had pain in her shoulder, on the left side, also pain on the left side of her neck and on the left side of her face as well as headaches. There was shortness of breath associated with this but not enough to affect ambulation or the rest of her daily activities. Based on this she decided to come to our emergency room to be evaluated and possibly given a different prescription for the pneumonia. When she got to the ER she was found to be in rapid atrial fibrillation and a chest x-ray does come from the presence of left lower lobe atelectasis versus infiltrate and at this time the patient is being admitted for chest pain rule out control of new onset A. fib versus new diagnosis and treatment of possible left-sided pneumonia. Of note is that the patient does maintain close follow-up with her primary care doctor, she actually has an appointment tomorrow based on her recent emergency room visit. She has a routine appointment after that December 25. Hence it is more likely that this is a new onset of atrial fibrillation Hospital Course She quickly converted back to normal sinus on metoprolol. Dr. Fuller from cardiology was consulted. CHADSVASC was 2, so she was started on xarelto. There was some concern of R knee swelling and ecchymosis; but she was evaluated by Dr. Presley and it doesn't look like a hemarthrosis. She will be discharged on metoprolol and xarelto. Home Meds Active Scripts Rivaroxaban* (Xarelto*) 20 Mg Tablet, 20 MG PO WITH DINNER, #30 TAB Prov:BENITO AG MD 12/11/18 Metoprolol Tartrate* (Lopressor*) 50 Mg Tab, 50 MG PO BID, #60 TAB Prov:BENITO AG MD 12/11/18 Reported Medications Metformin Hcl* (Metformin Hcl*) 1,000 Mg Tablet, 1000 MG PO WITH BREAKFAST DINNE, #30 TAB 12/06/18 Atorvastatin Calcium* (Atorvastatin Calcium*) 20 Mg Tablet, 20 MG PO QHS, #30 TAB 12/06/18 Glipizide* (Glipizide*) 5 Mg Tablet, 5 MG PO BID, TAB 12/06/18 Cholecalciferol* (Vitamin D3*) 1,000 Unit Tablet, 2000 UNIT PO DAILY, TAB 12/06/18 Hydrochlorothiazide* (Hydrochlorothiazide*) 12.5 Mg Tablet, 12.5 MG PO DAILY, #30 TAB 12/06/18 Acetaminophen* (Acetaminophen*) 500 MG Extra Strength Tablet, 500 MG PO Q6 PRN for PAIN AND OR ELEVATED TEMP, TAB 12/06/18 Lisinopril* (Lisinopril*) 10 Mg Tablet, 10 MG PO DAILY, #30 TAB 12/06/18 Albuterol Sulfate* (Ventolin HFA*) 18 Gm Hfa.aer.ad, 2 PUFF INHALATION Q4H PRN for WHEEZING AND SOB, #1 INHALER 12/06/18 Discontinued Reported Medications Doxycycline* (Vibramycin*) 100 Mg Tab, 100 MG PO BID, TAB 12/06/18 Discontinued Scripts Mupirocin* (Bactroban*) 2% -22 Gram Oint...g., 1 APPLIC TOP BID for 7 Days, EA Prov:YANIQUE JOHNSON PA-C 02/19/18 Cephalexin* (Keflex*) 500 Mg Capsule, 500 MG PO QID for 7 Days, CAP Prov:ADAMA CATALAN PA-C 02/15/18 Follow-up Plan 1. Take all medications as prescribed. 2. Your new medications are Xarelto and metoprolol. The former is a blood thinner to reduce your risk of stroke from atrial fibrillation. The latter will reduce your risk of going into atrial fibrillation in the future. 3. Make an appointment with your primary care doctor in 1-2 weeks. 4. Make an appointment with your networking technician in 2-4 weeks. 5. Return to the emergency room if you develop pressure-like chest pain or severe palpitations that do not go away after a few moments of rest. Primary Care Provider Care Physician No Primary Time spent on discharge: > 30 minutes Pending Labs Laboratory Tests Test 12/10/18 20:13 12/11/18 07:32 12/11/18 12:04 Bedside Glucose 166 mg/dL (70-220) 173 mg/dL (70-220) 144 mg/dL (70-220) BENITO AG MD Dec 11, 2018 19:41
== END 2018-12-11 17:45 | disposition home or self-care (01) | DRG 308 ==
LOC: E/R 05:50 → ICU 07:47 → 6WM 12-07 22:18
PROVIDERS: ADMIT Family Medicine; ATTEND Internal Medicine
DX: I48.0 Paroxysmal atrial fibrillation (principal); I50.31 Acute diastolic (congestive) heart failure; J18.9 Pneumonia, unspecified organism; I13.0 Hypertensive heart and chronic kidney disease with heart failure and stage 1 through stage 4 chronic kidney disease, or unspecified chronic kidney disease; R07.9 Chest pain, unspecified; E78.5 Hyperlipidemia, unspecified; E11.22 Type 2 diabetes mellitus with diabetic chronic kidney disease; N18.2 Chronic kidney disease, stage 2 (mild); E83.42 Hypomagnesemia; E83.39 Other disorders of phosphorus metabolism; J06.9 Acute upper respiratory infection, unspecified; E87.6 Hypokalemia; M17.11 Unilateral primary osteoarthritis, right knee; M25.461 Effusion, right knee; Z79.84 Long term (current) use of oral hypoglycemic drugs
CPT/HCPCS: 36415; 71045; 73562; 73590; 80048; 80061; 80307; 81001; 82550; 82553; 82962; 83036; 83735; 83880; 84100; 84439; 84443; 84484; 85025; 85610; 85730; 87081; 87086; 93005; 93306; 93970; 96374; 97116; 97162; J0282; J1650; J1815; J1885; J1940; J3475; J3480; J7040; J7060

== ENCOUNTER 2019-04-11 15:51 | Inpatient (IN) | payer OTHER ==
[~2019-04-11] VITALS: Ht 170.2 cm; Wt 95.7 kg
[~2019-04-11 15:51] MED LIST changes: +ACET-141 PO; +ALBU18HF INHALATION; +ATOR20TA38 PO; -CEPH-443 PO; +CHOL100062 PO; +GLIP5TAB13 PO; +HYDR12.58 PO; +LISI10TA2 PO; +METF100010 PO; +METO-429 PO; -MUPI22OI2 TOP; +RIVA20TA5 PO
[2019-04-11 15:55] VITALS: Ht 170.2 cm; Wt 95.7 kg
--- NOTE | 2019-04-11 16:16 | ERD ---
ER Documentation Chief Complaint Chief Complaint slurred speech, unsteady gait at 1418, rslvd, pt. c/o dizz, nausea HPI This is a 64-year-old woman brought in by daughter for complaints of generalized weakness and dizziness beginning today, difficulty ambulating for a few minutes and difficulty speaking. Symptoms have been intermittent beginning this morning and difficulty speaking lasted a few minutes as well, daughter states since her arrival to the emergency department she began to experience mild tremor to her right arm. She was recently diagnosed with seizure disorder and uses Keppra daily, her neurologist recently told her that she is suffering from multiple TIAs given the results of her most recent MRI but that she is also suffering from seizures. Patient does use rivaroxaban daily as well. She has had no recent fevers or chills, no chest pain or shortness of breath, no vomiting or diarrhea, no loss of consciousness ROS All systems reviewed and are negative except as per history of present illness. Medications Home Meds Active Scripts Rivaroxaban* (Xarelto*) 20 Mg Tablet, 20 MG PO WITH DINNER, #30 TAB Prov:BENITO AG MD 12/11/18 Metoprolol Tartrate* (Lopressor*) 50 Mg Tab, 50 MG PO BID, #60 TAB Prov:BENITO AG MD 12/11/18 Reported Medications Penicillin V Potassium* (Penicillin V K*) 500 Mg Tab, 500 MG PO QID, TAB STOP DATE 04/13/19 04/11/19 Levetiracetam* (Levetiracetam*) 500 Mg Tablet, 500 MG PO BID, TAB 04/11/19 Ibuprofen* (Ibuprofen*) 600 Mg Tablet, 600 MG PO Q8 PRN for NEEDED, TAB 04/11/19 Magnesium Oxide* (Magnesium Oxide*) 400 Mg Tablet, 400 MG PO BID, TAB 04/11/19 Metformin Hcl* (Metformin Hcl*) 1,000 Mg Tablet, 1000 MG PO WITH BREAKFAST DINNE, #30 TAB 12/06/18 Atorvastatin Calcium* (Atorvastatin Calcium*) 20 Mg Tablet, 20 MG PO QHS, #30 TAB 12/06/18 Glipizide* (Glipizide*) 5 Mg Tablet, 5 MG PO BID, TAB 12/06/18 Lisinopril* (Lisinopril*) 10 Mg Tablet, 10 MG PO DAILY, #30 TAB 12/06/18 Discontinued Reported Medications Cholecalciferol (Vitamin D3) (Vitamin D-3) 2,000 Unit Tablet, 2000 UNIT PO DAILY, TAB 04/11/19 Cholecalciferol* (Vitamin D3*) 1,000 Unit Tablet, 2000 UNIT PO DAILY, TAB 12/06/18 Hydrochlorothiazide* (Hydrochlorothiazide*) 12.5 Mg Tablet, 12.5 MG PO DAILY, #30 TAB 12/06/18 Acetaminophen* (Acetaminophen*) 500 MG Extra Strength Tablet, 500 MG PO Q6 PRN for PAIN AND OR ELEVATED TEMP, TAB 12/06/18 Albuterol Sulfate* (Ventolin HFA*) 18 Gm Hfa.aer.ad, 2 PUFF INHALATION Q4H PRN for WHEEZING AND SOB, #1 INHALER 12/06/18 Allergies Allergies: Coded Allergies: codeine (Unverified Allergy, Unknown, 04/11/19) PMhx/Soc Paroxysmal atrial fibrillation, hypertension, diabetes mellitus, dyslipidemia, obesity, seizure disorder, TIAs History of Surgery: Yes (L ankle sugery, L Leg surgery, Abd hernia x4, tonsillectomy) Anesthesia Reaction: No Hx Neurological Disorder: No Hx Respiratory Disorders: No Hx Cardiac Disorders: Yes (HTN) Hx Psychiatric Problems: No Hx Miscellaneous Medical Probl: Yes (See technical record) Hx Alcohol Use: No Hx Substance Use: No Hx Tobacco Use: No FmHx Family History: No diabetes Physical Exam Vitals Vital Signs Date Temp Pulse Resp B/P (MAP) Pulse Ox O2 O2 Flow FiO2 Time Delivery Rate 04/11/19 68 20 134/90 97 Room Air 20:00 (105) 04/11/19 98.1 69 19 133/99 100 Room Air 18:25 (110) 04/11/19 68 21 140/74 99 Room Air 17:54 (96) 04/11/19 97.6 75 20 162/78 96 15:55 (106) Physical Exam GENERAL: Well-developed, well-nourished, well-hydrated, in no apparent distress, looks nontoxic in appearance HEENT: Moist mucous membranes, pink conjunctiva, no cervical spine tenderness or step-off deformities, no goiter, no jaundice or icterus, extraocular movements intact without pain. No submandibular induration, and no pharyngeal erythema NEURO: Alert and oriented 3, cranial nerves II through XII intact bilaterally, pupils equal round reactive to light, no focal deficits or facial asymmetry, sensation intact distally Strength 5/5 in upper and lower extremities bilaterally CARDIAC: Regular rate and rhythm, no murmurs rubs or gallops LUNGS: Clear bilaterally no wheezing crackles or stridor ABDOMEN: Soft nontender, no guarding, no rigidity, no rebound, no psoas sign no obturator sign. Normoactive bowel sounds SKIN: Warm and dry to touch, no abrasions, contusions, or hematomas, no lacerations, no ecchymosis, no target lesions, and without ulcers EXTREMITIES: No clubbing cyanosis or edema, calves are bilaterally symmetrical, no Homans sign, no popliteal cord sign. Distal pulses equal and bilateral PSYCH: Normal affect without agitation or irritability Result Diagram: 04/11/19 1640 04/11/19 1640 Results 24 hrs Laboratory Tests Test 04/11/19 16:40 04/11/19 18:39 White Blood Count 7.2 10^3/ul Red Blood Count 4.33 10^6/ul Hemoglobin 13.3 g/dl Hematocrit 39.8 % Mean Corpuscular Volume 91.9 fl Mean Corpuscular Hemoglobin 30.7 pg Mean Corpuscular Hemoglobin Concent 33.4 g/dl Red Cell Distribution Width 13.3 % Platelet Count 185 10^3/UL Mean Platelet Volume 11.2 fl Immature Granulocytes % 0.300 % Neutrophils % 51.1 % Lymphocytes % 38.5 % Monocytes % 7.7 % Eosinophils % 1.8 % Basophils % 0.6 % Nucleated Red Blood Cells % 0.0 /100WBC Immature Granulocytes # 0.020 10^3/ul Neutrophils # 3.7 10^3/ul Lymphocytes # 2.8 10^3/ul Monocytes # 0.6 10^3/ul Eosinophils # 0.1 10^3/ul Basophils # 0.0 10^3/ul Nucleated Red Blood Cells # 0.0 10^3/ul Prothrombin Time 13.6 Sec Prothrombin Time Ratio 1.1 INR International Normalized Ratio 1.03 Activated Partial Thromboplast Time 28.3 Sec Sodium Level 139 mmol/L Potassium Level 4.7 mmol/L Chloride Level 104 mmol/L Carbon Dioxide Level 23 mmol/L Anion Gap 12 Blood Urea Nitrogen 45 mg/dl Creatinine 1.10 mg/dl Est Glomerular Filtrat Rate mL/min 50 mL/min Glucose Level 91 mg/dl Calcium Level 10.3 mg/dl Total Bilirubin 0.9 mg/dl Direct Bilirubin 0.00 mg/dl Indirect Bilirubin 0.9 mg/dl Aspartate Amino Transf (AST/SGOT) 29 IU/L Alanine Aminotransferase (ALT/SGPT) 22 IU/L Alkaline Phosphatase 75 IU/L Troponin I < 0.012 ng/ml Total Protein 7.8 g/dl Albumin 4.3 g/dl Globulin 3.50 g/dl Albumin/Globulin Ratio 1.22 Lipase 423 U/L Urine Color STRAW Urine Clarity CLEAR Urine pH 5.0 Urine Specific [place] 1.011 Urine Ketones NEGATIVE mg/dL Urine Nitrite NEGATIVE mg/dL Urine Bilirubin NEGATIVE mg/dL Urine Urobilinogen NEGATIVE mg/dL Urine Leukocyte Esterase NEGATIVE Geoff/ul Urine Hemoglobin NEGATIVE mg/dL Urine Glucose 2+ mg/dL Urine Total Protein NEGATIVE mg/dl Current Medications Medications Dose Sig/Maddy Start Time Status Last (Trade) Ordered Route PRN Stop Time Admin Dose Reason Admin Sodium 1,000 ml @ Q1H STAT 04/11/19 DC 04/11/19 Chloride 1,000 mls/hr IV 16:21 17:14 04/11/19 17:20 Aspirin 162 mg ONCE ONCE 04/11/19 DC 04/11/19 (Aspirin) PO 18:30 18:36 04/11/19 18:31 1,000 ml @ Q10H IV 04/11/19 04/11/19 Dextrose/Sodi 100 mls/hr 18:59 19:10 um Chloride IV Flush 3 ml PER 04/11/19 (NS 3 ml) PROTOCOL IV 19:00 Lorazepam 2 mg Q10MIN PRN 04/11/19 (Ativan) IV seizures 19:00 Ondansetron 4 mg Q6H PRN 04/11/19 HCl (Zofran IV 19:00 Inj) NAUSEA/VOMITI NG 650 mg Q6H PRN 04/11/19 04/11/19 Acetaminophen PO .PAIN 1-3 19:00 19:47 (Tylenol OR TEMP Tab) 100 ml @ Q12 IVPB 04/11/19 04/11/19 Levetiracetam 400 mls/hr 21:00 20:32 Procedures/MDM IV line was established patient was placed on resident care manager rhythm strip revealed a sinus rhythm at about 70 bpm with upright P and T waves. Patient was afebrile EKG performed, read by me revealed a normal sinus rhythm at 73 bpm, normal axis, right ventricular conduction delay QRS duration 104 ms, no concerning ST elevations or depressions noted One AP view of the chest performed, read by me reveals no acute infiltrates, normal mediastinum, sharp costophrenic and cardiac borders, no air under the diaphragm. Otherwise unremarkable chest x-ray. CT scan of the head was negative for acute bleed mass or shift, chronic changes noted CT scan of the head was performed, no acute bleed mass or shift, chronic changes noted. IMPRESSION: No acute intracranial findings. Old lacunar infarct in the right caudate head, measuring 9 mm. Background chronic microvascular ischemic disease. If there is further concern for superimposed acute infarct, MRI is recommended. CBC was normal, electrolytes revealed dehydration with a BUN/creatinine of 45/1.1, liver function test normal, troponin negative, urine analysis negative for infection. I administered 1 L normal saline IV and aspirin 162 mg p.o. for neuro protective measures. While here the patient's daughter states Savana multiple episodes of expressive aphasia lasting for a few minutes and then resolving spontaneously. Her most recent MRI findings would not explain her aphasia so she will be admitted for continued medical management, neurology consultation, possible repeat MRI. Patient is not a candidate for TPA as her symptoms are fleeting and because she has a normal neurologic exam at this time Departure Diagnosis: Primary Impression: Aphasia Additional Impressions: TIA (transient ischemic attack) Acute dehydration Condition: STEVEN Mayen MD Apr 11, 2019 16:16
[2019-04-11] MEDS ORDERED: SOD CHLORIDE 0.9% 1,000 ML IV STA (16:21)
[2019-04-11] MEDS ORDERED: CHOL200056 PO (16:48)
[2019-04-11] MEDS ORDERED: IBUP-1542 PO (16:49)
[2019-04-11] MEDS ORDERED: MAGN400T28 PO (16:49)
[2019-04-11] MEDS ORDERED: LEVE500T8 PO (17:06)
[2019-04-11] MEDS ORDERED: PENI500T PO (17:07)
[2019-04-11] MEDS ORDERED: ASPIRIN 81 MG TAB PO ONE (18:30)
[2019-04-11] MEDS ORDERED: ONDANSETRON 4 MG INJ IV PRN (19:00)
[2019-04-11] MEDS ORDERED: LORAZEPAM 2 MG INJ IV PRN (19:00)
[2019-04-11] MEDS ORDERED: NACL 0.9% 3 ML SYG IV SCH (19:00)
[2019-04-11] MEDS: DEXTROSE 5%-0.45% NACL 1,000 ML IV SCH (19:10)
[2019-04-11] MEDS: ACETAMINOPHEN 325 MG TAB PO PRN (19:47)
[2019-04-11] MEDS: LEVETIRACETAM 500 MG (PMX) 100 ML IVPB SCH (20:32)
[2019-04-12] VITALS (7 sets, daily range): BP systolic 120–157; BP diastolic 66–83; PULSE 61–71; RESP 18–20
[2019-04-12] MEDS ORDERED: GLUCOSE GEL 15 GRAM TUBE BUCCAL PRN (01:00)
[2019-04-12] MEDS ORDERED: DEXTROSE 50% 50 ML SYRINGE IV PRN ×2 (01:00)
[2019-04-12] MEDS ORDERED: GLUCOSE GEL 15 GRAM TUBE PO PRN ×2 (01:00)
[2019-04-12] MEDS ORDERED: GLUCAGON 1 MG INJ IM PRN (01:00)
[2019-04-12] MEDS: ACCU-CHEK XX SCH (02:54)
[2019-04-12] MEDS: DEXTROSE 5%-0.45% NACL 1,000 ML IV SCH ×3 (05:04→23:27)
[2019-04-12] MEDS ORDERED: SOD CHLORIDE 0.9% 100 ML ONE (07:47)
[2019-04-12] MEDS ORDERED: IOHEXOL 100 ML ONE (07:47)
[2019-04-12] MEDS: INSULIN ASPART [NOVOLOG] 3 ML PEN SC SCH ×4 (08:00→20:44)
[2019-04-12] MEDS: MAGNESIUM SULFATE 2 GM/50 ML 50 ML IVPB SCH ×3 (08:37→12:09)
[2019-04-12] MEDS: METOPROLOL 50 MG TAB PO SCH ×2 (08:40→20:45)
--- NOTE | 2019-04-12 09:39 | HP ---
Date/Time of Note Date/Time of Note DATE: 04/12/19 TIME: 09:31 Assessment/Plan VTE Prophylaxis Risk score (from Ns)>0 risk: 3 SCD applied (from [facility] [place]): Yes Pharmacological prophylaxis: heparin Lines/Catheters IV Catheter Type [facility]from [facility] Saline Lock Urinary Cath still in place: No Assessment/Plan Assessment/Plan 1. Rule out CVA -Patient with a slurred speech and right upper extremity tremor -Head CT was old infarct -Obtain angio of the head and neck as well as MRI of the brain -2D echo -Aspirin, statin -PT/speech swallow eval -Neurology consult 2. Seizure: Patient reported that she was diagnosed with seizures a month ago -Right upper extremity tremor mention likely related to seizure -Continue antiseizure meds -Neurology consult 3. Mild pancreatitis -Patient denied abdominal pain, but tenderness was elicited on physical exam -Follow-up abdominal ultrasound and repeat lipase 4. Diabetes: Insulin while in-house 5. Hypertension: Adjust BP meds as needed 6. Dyslipidemia: Statin Result Diagram: 04/12/1952304/12/1924 Results 24hrs Laboratory Tests Test 04/11/19 16:40 04/11/19 18:39 04/12/19 00:10 04/12/19 05:24 White Blood Count 7.2 4.4 #L Red Blood Count 4.33 3.88 L Hemoglobin 13.3 11.9 L Hematocrit 39.8 35.6 L Mean Corpuscular 91.9 91.8 Volume Mean Corpuscular 30.7 30.7 Hemoglobin Mean Corpuscular 33.4 33.4 Hemoglobin Concent Red Cell 13.3 13.4 Distribution Width Platelet Count 185 # 155 Mean Platelet Volume 11.2 H 10.5 H Immature 0.300 0.200 Granulocytes % Neutrophils % 51.1 42.9 Lymphocytes % 38.5 45.7 Monocytes % 7.7 8.0 Eosinophils % 1.8 2.5 Basophils % 0.6 0.7 Nucleated Red Blood 0.0 0.0 Cells % Immature 0.020 0.010 Granulocytes # Neutrophils # 3.7 1.9 Lymphocytes # 2.8 2.0 Monocytes # 0.6 0.4 Eosinophils # 0.1 0.1 Basophils # 0.0 0.0 Nucleated Red Blood 0.0 0.0 Cells # Prothrombin Time 13.6 Prothrombin Time 1.1 Ratio INR International 1.03 Normalized Ratio Activated 28.3 Partial Thromboplast Time Sodium Level 139 139 Potassium Level 4.7 4.1 Chloride Level 104 108 Carbon Dioxide Level 23 24 Anion Gap 12 7 Blood Urea Nitrogen 45 H 32 #H Creatinine 1.10 H 0.89 Est Glomerular 50 L > 60 Filtrat Rate mL/min Glucose Level 91 119 Calcium Level 10.3 H 9.4 Total Bilirubin 0.9 1.0 Direct Bilirubin 0.00 0.00 Indirect Bilirubin 0.9 1.0 Aspartate Amino 29 21 Transf (AST/SGOT) Alanine 22 28 Aminotransferase (AL T/SGPT) Alkaline Phosphatase 75 68 Troponin I < 0.012 Total Protein 7.8 6.6 # Albumin 4.3 3.6 Globulin 3.50 H 3.00 Albumin/Globulin 1.22 1.20 Ratio Lipase 423 H 256 Urine Color STRAW Urine Clarity CLEAR Urine pH 5.0 Urine Specific 1.011 [place] Urine Ketones NEGATIVE Urine Nitrite NEGATIVE Urine Bilirubin NEGATIVE Urine Urobilinogen NEGATIVE Urine Leukocyte NEGATIVE Esterase Urine Hemoglobin NEGATIVE Urine Glucose 2+ H Urine Total Protein NEGATIVE Bedside Glucose 122 Hemoglobin A1c 5.9 Magnesium Level 1.0 L Triglycerides Level 175 H Cholesterol Level 111 LDL Cholesterol, 50 Calculated HDL Cholesterol 26 L Cholesterol/HDL 4.2 Ratio Thyroid Stimulating 3.830 Hormone (TSH) Test 04/12/19 08:39 Bedside Glucose 128 HPI/ROS Admit Date/Time Admit Date/Time Apr 11, 2019 at 18:44 Hx of Present Illness Patient is a 64-year-old female with a history of hypertension, type 2 diabetes, dyslipidemia, atrial fibrillation on Xarelto, recently diagnosed seizure. Patient is not a very good historian but able to provide history. She said that she woke up and noticed that her right upper extremity was shaking. She states she was diagnosed with new onset seizure a month ago. She states she is been taking her seizure medications. She has slurred speech, which she said started several days ago. She requested that I speak with her daughter for additional information. When she presented to ER, BP was 162/[address] showed old lacunar infarct in the right caudate head, measuring 9 mm with background chronic microvascular ischemic disease. Her lipase was found to be 423. She denied abdominal pain, but on physical exam she was tender. PMH/Family/Social Past Medical History Past Surgical Hx: other (see HPI) Family History Significant Family History: no pertinent family hx Social History Alcohol Use: none Smoking Status: Never smoker Drug Use: none Exam Constitutional: No acute distress Head: normocephalic, atraumatic Eyes: EOMI, PERRL Respiratory: no distress Cardiovascular: regular rate and rhythm Gastrointestinal: soft Extremities: normal pulses Medications Current Medications Dextrose/Sodium Chloride 1,000 ml @ 100 mls/hr Q10H IV Last administered on 04/12/19at 05:04; Admin Dose 100 MLS/HR; Start 04/11/19 at 18:59 IV Flush (NS 3 ml) 3 ml PER PROTOCOL IV ; Start 04/11/19 at 19:00 Lorazepam (Ativan) 2 mg Q10MIN PRN IV seizures Last administered on 04/12/19at 0 5:55; Admin Dose 2 MG; Start 04/11/19 at 19:00 Ondansetron HCl (Zofran Inj) 4 mg Q6H PRN IV NAUSEA/VOMITING; Start 04/11/19 at 19:00 Acetaminophen (Tylenol Tab) 650 mg Q6H PRN PO .PAIN 1-3 OR TEMP Last administered on 04/11/19at 19:47; Admin Dose 650 MG; Start 04/11/19 at 19:00 Levetiracetam 100 ml @ 400 mls/hr Q12 IVPB Last administered on 04/11/19at 20:32; Admin Dose 400 MLS/HR; Start 04/11/19 at 21:00 Atorvastatin Calcium (Lipitor) 20 mg QHS PO ; Start 04/12/19 at 21:00 Rivaroxaban (Xarelto) 20 mg WITH DINNER PO ; Start 04/12/19 at 18:00 Metoprolol Tartrate (Lopressor) 50 mg BID PO Last administered on 04/12/19at 08:40; Admin Dose 50 MG; Start 04/12/19 at 09:00 Diagnostic Test (Pha) (Accu-Chek) 1 ea 02 XX Last administered on 04/12/19at 02:54; Admin Dose 1 EA; Start 04/12/19 at 02:00 Insulin Aspart (Novolog Insulin Pen) NOVOLOG *MILD* ALGORITHM WITH MEALS BEDTIME SC ; Start 04/12/19 at 08:00 Miscellaneous Information 1 ea NOTE XX ; Start 04/12/19 at 01:00 Glucose (Glutose) 15 gm Q15M PRN PO DECREASED GLUCOSE; Start 04/12/19 at 01:00 Glucose (Glutose) 22.5 gm Q15M PRN PO DECREASED GLUCOSE; Start 04/12/19 at 01:00 Dextrose (D50w Syringe) 25 ml Q15M PRN IV DECREASED GLUCOSE; Start 04/12/19 at 01:00 Dextrose (D50w Syringe) 50 ml Q15M PRN IV DECREASED GLUCOSE; Start 04/12/19 at 01:00 Glucagon (Glucagen) 1 mg Q15M PRN IM DECREASED GLUCOSE; Start 04/12/19 at 01:00 Glucose (Glutose) 15 gm Q15M PRN BUCCAL DECREASED GLUCOSE; Start 04/12/19 at 01:00 Magnesium Sulfate 50 ml @ 25 mls/hr Q2H IVPB Last administered on 04/12/19at 08:37; Admin Dose 25 MLS/HR; Start 04/12/19 at 07:00; Stop 04/12/19 at 12:59 Coded Allergies: codeine (Unverified Allergy, Unknown, 04/11/19) Family History Significant Family History: no pertinent family hx Social History Smoking Status: Former smoker Exam/Review of Systems Vital Signs Vitals Vital Signs Date Temp Pulse Resp B/P (MAP) Pulse Ox O2 O2 Flow FiO2 Time Delivery Rate 04/12/19 97.7 71 20 146/74 93 Room Air 08:40 (98) DU SALMERON MD Apr 12, 2019 09:39
[2019-04-12] MEDS: LEVETIRACETAM 500 MG (PMX) 100 ML IVPB SCH (13:21)
--- NOTE | 2019-04-12 14:26 | PN ---
Date/Time of Note Date/Time of Note DATE: 04/12/19 TIME: 14:07 Assessment/Plan VTE Prophylaxis Risk score (from [facility] [place]0 risk: 3 SCD applied (from [facility] [place]): Yes Pharmacological prophylaxis: rivaroxaban Lines/Catheters IV Catheter Type (from [facility]): [place] Lock Urinary Cath still in place: No Assessment/Plan Assessment/Plan 1. Possible TIA, aspirin/Xarelto, lipitor, neurology consult 2. 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 Seizure disorder, on keppra 4. Paroxysmal atrial fibrillation, sinus now, started on xarelto in 11/2018 5. Diabetes: Insulins, adjusted as needed 6. Hypertension: Adjust BP meds as needed 7. Dyslipidemia: Statin 8. DVT prophylaxis: on xarelto Result Diagram: 04/12/19 0524 04/12/19 0524 Results 24hrs Laboratory Tests Test 04/11/19 16:40 04/11/19 18:39 04/12/19 00:10 04/12/19 05:24 White Blood Count 7.2 4.4 #L Red Blood Count 4.33 3.88 L Hemoglobin 13.3 11.9 L Hematocrit 39.8 35.6 L Mean Corpuscular 91.9 91.8 Volume Mean Corpuscular 30.7 30.7 Hemoglobin Mean Corpuscular 33.4 33.4 Hemoglobin Concent Red Cell 13.3 13.4 Distribution Width Platelet Count 185 # 155 Mean Platelet Volume 11.2 H 10.5 H Immature 0.300 0.200 Granulocytes % Neutrophils % 51.1 42.9 Lymphocytes % 38.5 45.7 Monocytes % 7.7 8.0 Eosinophils % 1.8 2.5 Basophils % 0.6 0.7 Nucleated Red Blood 0.0 0.0 Cells % Immature 0.020 0.010 Granulocytes # Neutrophils # 3.7 1.9 Lymphocytes # 2.8 2.0 Monocytes # 0.6 0.4 Eosinophils # 0.1 0.1 Basophils # 0.0 0.0 Nucleated Red Blood 0.0 0.0 Cells # Prothrombin Time 13.6 Prothrombin Time 1.1 Ratio INR International 1.03 Normalized Ratio Activated 28.3 Partial Thromboplast Time Sodium Level 139 139 Potassium Level 4.7 4.1 Chloride Level 104 108 Carbon Dioxide Level 23 24 Anion Gap 12 7 Blood Urea Nitrogen 45 H 32 #H Creatinine 1.10 H 0.89 Est Glomerular 50 L > 60 Filtrat Rate mL/min Glucose Level 91 119 Calcium Level 10.3 H 9.4 Total Bilirubin 0.9 1.0 Direct Bilirubin 0.00 0.00 Indirect Bilirubin 0.9 1.0 Aspartate Amino 29 21 Transf (AST/SGOT) Alanine 22 28 Aminotransferase (AL T/SGPT) Alkaline Phosphatase 75 68 Troponin I < 0.012 Total Protein 7.8 6.6 # Albumin 4.3 3.6 Globulin 3.50 H 3.00 Albumin/Globulin 1.22 1.20 Ratio Lipase 423 H 256 Urine Color STRAW Urine Clarity CLEAR Urine pH 5.0 Urine Specific 1.011 Alpine Urine Ketones NEGATIVE Urine Nitrite NEGATIVE Urine Bilirubin NEGATIVE Urine Urobilinogen NEGATIVE Urine Leukocyte NEGATIVE Esterase Urine Hemoglobin NEGATIVE Urine Glucose 2+ H Urine Total Protein NEGATIVE Bedside Glucose 122 Hemoglobin A1c 5.9 Magnesium Level 1.0 L Triglycerides Level 175 H Cholesterol Level 111 LDL Cholesterol, 50 Calculated HDL Cholesterol 26 L Cholesterol/HDL 4.2 Ratio Thyroid Stimulating 3.830 Hormone (TSH) Test 04/12/19 08:39 04/12/19 12:09 Bedside Glucose 128 126 Subjective 24 Hr Interval Summary Free Text/Dictation still slurring per the patient, no focal weakness Exam/Review of Systems Exam Vitals Vital Signs Date Temp Pulse Resp B/P (MAP) Pulse Ox O2 O2 Flow FiO2 Time Delivery Rate 04/12/19 97.5 62 20 142/83 97 Room Air 11:46 (102) Constitutional: alert, oriented, well developed Head: normocephalic, atraumatic Eyes: nl conjunctiva, EOMI, nl lids ENMT: nl external ears & nose, nl lips & teeth, nl nasal mucosa & septum Neck: supple, non-tender Respiratory: clear to auscultation, normal air movement; No congested cough, No crackles/rales, No diminished breath sounds, No intercostal retraction, No labored breathing, No respirations, No tactile fremitus, No wheezing, No other Cardiovascular: regular rate and rhythm, nl pulses; No bruits, No diastolic murmur, No edema, No gallop, No irregular rhythm, No jugular venous distention (JVD), No murmurs/extra sounds, No rub, No systolic murmur, No S3, No S4, No other Gastrointestinal: soft, nl liver, spleen, non-tender Musculoskeletal: nl extremities to inspection Extremities: normal pulses; No calf tenderness, No cyanosis, No clubbing, No edema, No pitting pedal edema, No palpable cord, No tenderness, No other Neurological: GOLD BEATER II-XII intact, nl mental status, nl speech, nl strength Results Results 24hrs Laboratory Tests Test 04/11/19 16:40 04/11/19 18:39 04/12/19 00:10 04/12/19 05:24 White Blood Count 7.2 4.4 #L Red Blood Count 4.33 3.88 L Hemoglobin 13.3 11.9 L Hematocrit 39.8 35.6 L Mean Corpuscular 91.9 91.8 Volume Mean Corpuscular 30.7 30.7 Hemoglobin Mean Corpuscular 33.4 33.4 Hemoglobin Concent Red Cell 13.3 13.4 Distribution Width Platelet Count 185 # 155 Mean Platelet Volume 11.2 H 10.5 H Immature 0.300 0.200 Granulocytes % Neutrophils % 51.1 42.9 Lymphocytes % 38.5 45.7 Monocytes % 7.7 8.0 Eosinophils % 1.8 2.5 Basophils % 0.6 0.7 Nucleated Red Blood 0.0 0.0 Cells % Immature 0.020 0.010 Granulocytes # Neutrophils # 3.7 1.9 Lymphocytes # 2.8 2.0 Monocytes # 0.6 0.4 Eosinophils # 0.1 0.1 Basophils # 0.0 0.0 Nucleated Red Blood 0.0 0.0 Cells # Prothrombin Time 13.6 Prothrombin Time 1.1 Ratio INR International 1.03 Normalized Ratio Activated 28.3 Partial Thromboplast Time Sodium Level 139 139 Potassium Level 4.7 4.1 Chloride Level 104 108 Carbon Dioxide Level 23 24 Anion Gap 12 7 Blood Urea Nitrogen 45 H 32 #H Creatinine 1.10 H 0.89 Est Glomerular 50 L > 60 Filtrat Rate mL/min Glucose Level 91 119 Calcium Level 10.3 H 9.4 Total Bilirubin 0.9 1.0 Direct Bilirubin 0.00 0.00 Indirect Bilirubin 0.9 1.0 Aspartate Amino 29 21 Transf (AST/SGOT) Alanine 22 28 Aminotransferase (AL T/SGPT) Alkaline Phosphatase 75 68 Troponin I < 0.012 Total Protein 7.8 6.6 # Albumin 4.3 3.6 Globulin 3.50 H 3.00 Albumin/Globulin 1.22 1.20 Ratio Lipase 423 H 256 Urine Color STRAW Urine Clarity CLEAR Urine pH 5.0 Urine Specific 1.011 Alpine Urine Ketones NEGATIVE Urine Nitrite NEGATIVE Urine Bilirubin NEGATIVE Urine Urobilinogen NEGATIVE Urine Leukocyte NEGATIVE Esterase Urine Hemoglobin NEGATIVE Urine Glucose 2+ H Urine Total Protein NEGATIVE Bedside Glucose 122 Hemoglobin A1c 5.9 Magnesium Level 1.0 L Triglycerides Level 175 H Cholesterol Level 111 LDL Cholesterol, 50 Calculated HDL Cholesterol 26 L Cholesterol/HDL 4.2 Ratio Thyroid Stimulating 3.830 Hormone (TSH) Test 04/12/19 08:39 04/12/19 12:09 Bedside Glucose 128 126 Medications Medication Current Medications Dextrose/Sodium Chloride 1,000 ml @ 100 mls/hr Q10H IV Last administered on 04/12/19at 05:04; Admin Dose 100 MLS/HR; Start 04/11/19 at 18:59 IV Flush (NS 3 ml) 3 ml PER PROTOCOL IV ; Start 04/11/19 at 19:00 Lorazepam (Ativan) 2 mg Q10MIN PRN IV seizures Last administered on 04/12/19at 05:55; Admin Dose 2 MG; Start 04/11/19 at 19:00 Ondansetron HCl (Zofran Inj) 4 mg Q6H PRN IV NAUSEA/VOMITING; Start 04/11/19 at 19:00 Acetaminophen (Tylenol Tab) 650 mg Q6H PRN PO .PAIN 1-3 OR TEMP Last administered on 04/11/19at 19:47; Admin Dose 650 MG; Start 04/11/19 at 19:00 Levetiracetam 100 ml @ 400 mls/hr Q12 IVPB Last administered on 04/12/19at 13:21; Admin Dose 400 MLS/HR; Start 04/11/19 at 21:00 Atorvastatin Calcium (Lipitor) 20 mg QHS PO ; Start 04/12/19 at 21:00 Rivaroxaban (Xarelto) 20 mg WITH DINNER PO ; Start 04/12/19 at 18:00 Metoprolol Tartrate (Lopressor) 50 mg BID PO Last administered on 04/12/19at 08:40; Admin Dose 50 MG; Start 04/12/19 at 09:00 Diagnostic Test (Pha) (Accu-Chek) 1 ea 02 XX Last administered on 04/12/19at 02:54; Admin Dose 1 EA; Start 04/12/19 at 02:00 Insulin Aspart (Novolog Insulin Pen) NOVOLOG *MILD* ALGORITHM WITH MEALS BEDTIME SC ; Start 04/12/19 at 08:00 Miscellaneous Information 1 ea NOTE XX ; Start 04/12/19 at 01:00 Glucose (Glutose) 15 gm Q15M PRN PO DECREASED GLUCOSE; Start 04/12/19 at 01:00 Glucose (Glutose) 22.5 gm Q15M PRN PO DECREASED GLUCOSE; Start 04/12/19 at 01:00 Dextrose (D50w Syringe) 25 ml Q15M PRN IV DECREASED GLUCOSE; Start 04/12/19 at 01:00 Dextrose (D50w Syringe) 50 ml Q15M PRN IV DECREASED GLUCOSE; Start 04/12/19 at 01:00 Glucagon (Glucagen) 1 mg Q15M PRN IM DECREASED GLUCOSE; Start 04/12/19 at 01:00 Glucose (Glutose) 15 gm Q15M PRN BUCCAL DECREASED GLUCOSE; Start 04/12/19 at 01:00 LELE CURTIS MD Apr 12, 2019 14:18
[2019-04-12] MEDS ORDERED: MAGNESIUM SULFATE 4 GM/100 ML 100 ML IVPB ONE (14:30)
[2019-04-12] MEDS: RIVAROXABAN 20 MG TABLET PO SCH (17:03)
[2019-04-12] MEDS: LEVETIRACETAM 500 MG TAB PO SCH (20:45)
[2019-04-12] MEDS ORDERED: ATORVASTATIN 20 MG TAB PO SCH (21:00)
[2019-04-12] MEDS: ACETAMINOPHEN 325 MG TAB PO PRN (23:33)
[2019-04-13] MEDS: ACCU-CHEK XX SCH (01:39)
[2019-04-13 03:24] VITALS: BP 119/65; PULSE 60; RESP 18
[2019-04-13] MEDS ORDERED: ACETAMINOPHEN 325 MG TAB PO ONE (04:12)
[2019-04-13 07:24] VITALS: BP 152/80; PULSE 61; RESP 18
[2019-04-13] MEDS: LEVETIRACETAM 500 MG TAB PO SCH (07:37)
[2019-04-13] MEDS: METOPROLOL 50 MG TAB PO SCH (07:37)
[2019-04-13] MEDS: DEXTROSE 5%-0.45% NACL 1,000 ML IV SCH (07:37)
[2019-04-13] MEDS: INSULIN ASPART [NOVOLOG] 3 ML PEN SC SCH ×3 (07:40→17:07)
--- NOTE | 2019-04-13 10:39 | RADRPT ---
Echocardiogram Report Patient Name: Chandu JHAVERI ID: [id number] : 1955 (64y 3m)Study Date: 04/12/2019 11:08:47 AM Gender: FAccession #: [id number] Tech: Brandyn Campbell [facility] Location: [id number] Ref.Physician: STEVEN SHARP Height(Cm): BSA: Weight(Kg): Quality: AdequateOrder Physician: STEVEN SHARP Account #: Procedures: Echocardiographic Report: Transthoracic echocardiogram with complete 2D, M-Mode, and doppler examination. Indications: Cerebrovascular Accident. Measurements: 2D/M Mode Doppler Measurement Value Normal Range Measurement Value Normal Range LVIDd 2D 4.4 [ 3.8 - 5.2 ] cm AV Peak Ahmet 1.0 [ 100.0 - 170.0 ] cm/sec LVIDs 2D 3.5 [ 2.2 - 3.5 ] cm AV Peak PG 4.0 [ 2.0 - 9.0 ] mmHg LVPWd 2D 1.5 [ 0.6 - 0.9 ] cm LVOT Peak Ahmet 0.8 [ 70.0 - 110.0 ] cm/sec IVSd 2D 1.5 [ 0.6 - 0.9 ] cm LVOT Peak PG 2.0 [ 2.0 - 6.0 ] mmHg AoR Diam 2D 3.1 [ 2.3 - 3.1 ] cm MV E Peak Ahmet 0.6 [ 60.0 - 130.0 ] cm/sec EDV 2D 87.7 [ 46.0 - 106.0 ] ml MV A Peak Ahmet 0.6 [ 100.0 - 120.0 ] cm/sec ESV 2D 51.6 [ 14.0 - 42.0 ] ml MV E/A 1.0 [ 0.8 - 1.5 ] ratio EF 2D 41.2 [ 54.0 - 74.0 ] percent MV Decel Time 215 [ 104 - 258 ] msec LA Dimen 2D 3.5 [ 2.7 - 3.8 ] cm Lat E` Ahmet 0.1 [ 10.0 - 15.0 ] cm/sec Lateral E/E` 10.9 [ 1.0 - 2.0 ] ratio Med E` Ahmet 0.0 cm/sec MV E/A 1.0 [ 0.8 - 1.5 ] ratio TR Peak Ahmet 2.4 [ 100.0 - 280.0 ] cm/sec TR Peak PG 23.0 mmHg RVSP 26.0 [ 10.0 - 36.0 ] mmHg Findings: Left Ventricle: Normal left ventricular cavity size. Mild hypertrophy of the basal septum. Ejection fraction is visually estimated at 55 %. Tissue Doppler/Mitral Doppler indices are consistent with impaired relaxation (Stage I diastolic dysfunction). Right Ventricle: Normal right ventricular size. Normal right ventricular systolic function. Left Atrium: There is moderate enlargement of left atrium. Right Atrium: The right atrium is normal in size. Mitral Valve: Mild mitral leaflet calcification. Mild mitral annular calcification. Trace mitral regurgitation. Aortic Valve: No hemodynamically significant aortic stenosis by doppler. Aortic cusps appear mildly calcified. Mild to moderate aortic valve regurgitation. Tricuspid Valve: Normal appearance of the tricuspid valve. The estimated Peak RVSP is 26 mmHg. There is trace tricuspid regurgitation. Pericardium: Normal pericardium with no significant pericardial effusion. Aorta: Ascending aorta is dilated. Ascending Aorta 4.10 cm. IVC: Normal size and normal respiratory collapse consistent with normal right atrial pressure. Conclusions: Normal left ventricular cavity size. Mild hypertrophy of the basal septum. Ejection fraction is visually estimated at 55 %. Tissue Doppler/Mitral Doppler indices are consistent with impaired relaxation (Stage I diastolic dysfunction). No hemodynamically significant aortic stenosis by doppler. Aortic cusps appear mildly calcified. Mild to moderate aortic valve regurgitation. Ascending aorta is dilated. Ascending Aorta 4.10 cm. The estimated Peak RVSP is 26 mmHg. Normal size and normal respiratory collapse consistent with normal right atrial pressure. Electronically Signed By: Reynold Jackson 2019-04-13 10:38:49 PDT
[2019-04-13 11:43] VITALS: BP 139/74; PULSE 63; RESP 20
--- NOTE | 2019-04-13 12:13 | CONSI ---
Assessment/Plan Assessment/Plan Assessment/Plan (Recall) 64 F c/ reported Hx of epilepsy, and other comorbidities...who presents for evaluation of dysarthria and tremor. Noted to have GEORGE on presentation, which likely negatively impacted Keppra clearance, contributing indirectly to her symptoms.. A focal CASH MANAGEMENT CLERK process is less likely.. MRI brain is reassuringly negative for acute intracranial pathology. P: OK to defer further neurologic investigation for now Continue Keppra per ops now that renal function is improved.. Agree w/ anticoagulation for primary stroke prevention Other management and supportive care per primary Will follow clinically Consultation Date/Type/Reason Admit Date/Time Apr 11, 2019 at 18:44 Type of Consult Neurology Reason for Consultation dysarthria and tremors. Requesting Provider: LELE CURTIS MD Date/Time of Note DATE: 04/13/19 TIME: 12:07 Hx of Present Illness Patient is a 64-year-old female with a history of hypertension, type 2 diabetes, dyslipidemia, atrial fibrillation on Xarelto, recently diagnosed seizure. Patient is not a very good historian but able to provide history. She said that she woke up and noticed that her right upper extremity was shaking. She states she was diagnosed with new onset seizure a month ago. She states she is been taking her seizure medications. She has slurred speech, which she said started several days ago. She requested that I speak with her daughter for additional information. When she presented to ER, BP was 162/[address] showed old lacunar infarct in the right caudate head, measuring 9 mm with background chronic micr ovascular ischemic disease. Her lipase was found to be 423. She denied abdominal pain, but on physical exam she was tender. per HPI Objective Exam Vitals Vital Signs Date Temp Pulse Resp B/P (MAP) Pulse Ox O2 O2 Flow FiO2 Time Delivery Rate 04/13/19 98.1 63 20 139/74 97 Room Air 11:43 (95) Intake and Output 04/12/19 04/12/19 04/13/19 1515:00 23:00 07:00 IntakeIntake Total 720 ml 360 ml 200 ml OutputOutput Total 1900 ml 500 ml 2000 ml BalanceBalance -1180 ml -140 ml -1800 ml Exam PE: Gen Appearance: No Apparent Distress HEENT: Normocephalic Cardiovascular: Regular rate Abdomen: Soft Extremities: Dry NE: The patient was alert and oriented. Language was normal. Fund of knowledge was somewhat limited. Pupils were equal and reactive to light. There was no afferent pupillary defect. Visual cervantes were normal. Funduscopic examination was limited. Extra-ocular movements were full. Ptosis was absent. There was no nystagmus. Facial sensation was normal. Face was symmetric with normal strength. Hearing was diminished on the left. Palate movements were normal. Neck strength was normal. There was normal tongue bulk and speed of movement. Tone was normal. Muscle bulk was normal. I did not see fasciculations. Arms and legs were symmetric. Vibration sensation was normal. Temperature and pinprick sensation was normal. Rapid alternating movements were normal. There was no dysmetria. There was no intention tremor. Gait was deferred due to bedrest. Arm and leg reflexes were symmetric. Medina's sign was absent. Plantar responses were flexor. Results Result Diagram: 04/13/19 0454 04/13/19 0454 Results 24hrs Laboratory Tests Test 04/12/19 12:09 04/12/19 14:02 04/12/19 17:03 04/12/19 20:44 Bedside Glucose 126 134 132 Magnesium Level 2.1 # Test 04/13/19 04:54 04/13/19 07:36 04/13/19 11:45 White Blood Count 4.6 L Red Blood Count 4.28 Hemoglobin 13.0 Hematocrit 38.8 Mean Corpuscular 90.7 Volume Mean Corpuscular 30.4 Hemoglobin Mean Corpuscular 33.5 Hemoglobin Concent Red Cell 13.2 Distribution Width Platelet Count 171 Mean Platelet Volume 10.8 H Immature 0.000 L Granulocytes % Neutrophils % 48.4 Lymphocytes % 40.9 Monocytes % 7.8 Eosinophils % 2.2 Basophils % 0.7 Nucleated Red Blood 0.0 Cells % Immature 0.000 Granulocytes # Neutrophils # 2.2 Lymphocytes # 1.9 Monocytes # 0.4 Eosinophils # 0.1 Basophils # 0.0 Nucleated Red Blood 0.0 Cells # Sodium Level 142 Potassium Level 4.3 Chloride Level 106 Carbon Dioxide Level 28 Anion Gap 8 Blood Urea Nitrogen 24 H Creatinine 0.91 Est Glomerular > 60 Filtrat Rate mL/min Glucose Level 135 Calcium Level 9.6 Magnesium Level 1.8 Bedside Glucose 142 130 Past Medical History none Home Meds Active Scripts Rivaroxaban* (Xarelto*) 20 Mg Tablet, 20 MG PO WITH DINNER, #30 TAB Prov:BENITO AG MD 12/11/18 Metoprolol Tartrate* (Lopressor*) 50 Mg Tab, 50 MG PO BID, #60 TAB Prov:BENITO AG MD 12/11/18 Reported Medications Penicillin V Potassium* (Penicillin V K*) 500 Mg Tab, 500 MG PO QID, TAB STOP DATE 04/13/19 04/11/19 Levetiracetam* (Levetiracetam*) 500 Mg Tablet, 500 MG PO BID, TAB 04/11/19 Ibuprofen* (Ibuprofen*) 600 Mg Tablet, 600 MG PO Q8 PRN for NEEDED, TAB 04/11/19 Magnesium Oxide* (Magnesium Oxide*) 400 Mg Tablet, 400 MG PO BID, TAB 04/11/19 Metformin Hcl* (Metformin Hcl*) 1,000 Mg Tablet, 1000 MG PO WITH BREAKFAST DINNE, #30 TAB 12/06/18 Atorvastatin Calcium* (Atorvastatin Calcium*) 20 Mg Tablet, 20 MG PO QHS, #30 TAB 12/06/18 Glipizide* (Glipizide*) 5 Mg Tablet, 5 MG PO BID, TAB 12/06/18 Lisinopril* (Lisinopril*) 10 Mg Tablet, 10 MG PO DAILY, #30 TAB 12/06/18 Discontinued Reported Medications Cholecalciferol (Vitamin D3) (Vitamin D-3) 2,000 Unit Tablet, 2000 UNIT PO DAILY, TAB 04/11/19 Cholecalciferol* (Vitamin D3*) 1,000 Unit Tablet, 2000 UNIT PO DAILY, TAB 12/06/18 Hydrochlorothiazide* (Hydrochlorothiazide*) 12.5 Mg Tablet, 12.5 MG PO DAILY, #30 TAB 12/06/18 Acetaminophen* (Acetaminophen*) 500 MG Extra Strength Tablet, 500 MG PO Q6 PRN for PAIN AND OR ELEVATED TEMP, TAB 12/06/18 Albuterol Sulfate* (Ventolin HFA*) 18 Gm Hfa.aer.ad, 2 PUFF INHALATION Q4H PRN for WHEEZING AND SOB, #1 INHALER 12/06/18 Medications Current Medications Dextrose/Sodium Chloride 1,000 ml @ 100 mls/hr Q10H IV Last administered on 04/13/19at 07:37; Admin Dose 100 MLS/HR; Start 7/17/19 at 18:59 IV Flush (NS 3 ml) 3 ml PER PROTOCOL IV ; Start 04/11/19 at 19:00 Lorazepam (Ativan) 2 mg Q10MIN PRN IV seizures Last administered on 04/12/19at 05:55; Admin Dose 2 MG; Start 04/11/19 at 19:00 Ondansetron HCl (Zofran Inj) 4 mg Q6H PRN IV NAUSEA/VOMITING; Start 04/11/19 at 19:00 Acetaminophen (Tylenol Tab) 650 mg Q6H PRN PO .PAIN 1-3 OR TEMP Last administered on 04/12/19at 23:33; Admin Dose 650 MG; Start 04/11/19 at 19:00 Atorvastatin Calcium (Lipitor) 20 mg QHS PO Last administered on 04/12/19at 20:45; Admin Dose 20 MG; Start 04/12/19 at 21:00 Rivaroxaban (Xarelto) 20 mg WITH DINNER PO Last administered on 04/12/19at 17:03; Admin Dose 20 MG; Start 04/12/19 at 18:00 Metoprolol Tartrate (Lopressor) 50 mg BID PO Last administered on 04/13/19at 07:37; Admin Dose 50 MG; Start 04/12/19 at 09:00 Diagnostic Test (Pha) (Accu-Chek) 1 ea 02 XX Last administered on 04/12/19at 02:54; Admin Dose 1 EA; Start 04/12/19 at 02:00 Insulin Aspart (Novolog Insulin Pen) NOVOLOG *MILD* ALGORITHM WITH MEALS BEDTIME SC Last administered on 04/13/19at 07:40; Admin Dose 1 UNIT; Start 04/12/19 at 08:00 Miscellaneous Information 1 ea NOTE XX ; Start 04/12/19 at 01:00 Glucose (Glutose) 15 gm Q15M PRN PO DECREASED GLUCOSE; Start 04/12/19 at 01:00 Glucose (Glutose) 22.5 gm Q15M PRN PO DECREASED GLUCOSE; Start 04/12/19 at 01:00 Dextrose (D50w Syringe) 25 ml Q15M PRN IV DECREASED GLUCOSE; Start 04/12/19 at 01:00 Dextrose (D50w Syringe) 50 ml Q15M PRN IV DECREASED GLUCOSE; Start 04/12/19 at 01:00 Glucagon (Glucagen) 1 mg Q15M PRN IM DECREASED GLUCOSE; Start 04/12/19 at 01:00 Glucose (Glutose) 15 gm Q15M PRN BUCCAL DECREASED GLUCOSE; Start 04/12/19 at 01:00 Levetiracetam (Keppra) 500 mg BID PO Last administered on 04/13/19at 07:37; Admin Dose 500 MG; Start 04/12/19 at 21:00 Allergies: Coded Allergies: codeine (Unverified Allergy, Unknown, 04/11/19) Social History Smoking Status: Former smoker MARCIAL BRUMFIELD Apr 13, 2019 12:13
--- NOTE | 2019-04-13 14:51 | DS ---
Date/Time of Note Date/Time of Note DATE: 04/13/19 TIME: 14:43 Discharge Summary Admission/Discharge Info Admit Date/Time Apr 11, 2019 at 18:44 Discharge Date/Time Discharge Diagnosis 1. Generalized weakness and dizziness, considered dehydration related, resolved 2. 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 Seizure disorder, on keppra 4. Paroxysmal atrial fibrillation, sinus now, started on xarelto in 11/2018 5. Diabetes: Insulins, adjusted as needed 6. Hypertension, controlled 7. Dyslipidemia: Statin Patient Condition: Stable Hospital Course This is a 64-year-old woman brought in by daughter for complaints of generalized weakness and dizziness beginning today, difficulty ambulating for a few minutes and difficulty speaking. Symptoms have been intermittent beginning this morning and difficulty speaking lasted a few minutes as well, daughter states since her arrival to the emergency department she began to experience mild tremor to her right arm. She was recently diagnosed with seizure disorder and uses Keppra daily, her neurologist recently told her that she is suffering from multiple TIAs given the results of her most recent MRI but that she is also suffering from seizures. Patient does use rivaroxaban daily as well. She has had no recent fevers or chills, no chest pain or shortness of breath, no vomiting or diarrhea, no loss of consciousness. To r/o stroke, patient got CT scan and MRI of brain, both negative for acute changes. On admission, BUN/Cr were 45/1.1 that improved with IVF, indicating dehydration. The symptoms are probaly dehydration related. Patient's symptoms resolved. She is instructed to follow up with PCP and neurology outpatient. Home Meds Active Scripts Rivaroxaban* (Xarelto*) 20 Mg Tablet, 20 MG PO WITH DINNER, #30 TAB Prov:BENITO AG MD 12/11/18 Metoprolol Tartrate* (Lopressor*) 50 Mg Tab, 50 MG PO BID, #60 TAB Prov:BENITO AG MD 12/11/18 Reported Medications Penicillin V Potassium* (Penicillin V K*) 500 Mg Tab, 500 MG PO QID, TAB STOP DATE 04/13/19 04/11/19 Levetiracetam* (Levetiracetam*) 500 Mg Tablet, 500 MG PO BID, TAB 04/11/19 Ibuprofen* (Ibuprofen*) 600 Mg Tablet, 600 MG PO Q8 PRN for NEEDED, TAB 04/11/19 Magnesium Oxide* (Magnesium Oxide*) 400 Mg Tablet, 400 MG PO BID, TAB 04/11/19 Metformin Hcl* (Metformin Hcl*) 1,000 Mg Tablet, 1000 MG PO WITH BREAKFAST DINNE, #30 TAB 12/06/18 Atorvastatin Calcium* (Atorvastatin Calcium*) 20 Mg Tablet, 20 MG PO QHS, #30 TAB 12/06/18 Glipizide* (Glipizide*) 5 Mg Tablet, 5 MG PO BID, TAB 12/06/18 Lisinopril* (Lisinopril*) 10 Mg Tablet, 10 MG PO DAILY, #30 TAB 12/06/18 Discontinued Reported Medications Cholecalciferol (Vitamin D3) (Vitamin D-3) 2,000 Unit Tablet, 2000 UNIT PO DAILY, TAB 04/11/19 Cholecalciferol* (Vitamin D3*) 1,000 Unit Tablet, 2000 UNIT PO DAILY, TAB 12/06/18 Hydrochlorothiazide* (Hydrochlorothiazide*) 12.5 Mg Tablet, 12.5 MG PO DAILY, #30 TAB 12/06/18 Acetaminophen* (Acetaminophen*) 500 MG Extra Strength Tablet, 500 MG PO Q6 PRN for PAIN AND OR ELEVATED TEMP, TAB 12/06/18 Albuterol Sulfate* (Ventolin HFA*) 18 Gm Hfa.aer.ad, 2 PUFF INHALATION Q4H PRN for WHEEZING AND SOB, #1 INHALER 12/06/18 Follow-up Plan PCP and neurology in one week Primary Care Provider Not On Staff Doctor Pending Labs Laboratory Tests Test 04/12/19 17:03 04/12/19 20:44 04/13/19 04:54 04/13/19 07:36 Bedside 134 132 142 Glucose mg/dL (70-220) mg/dL (70-220) mg/dL (70-220) White Blood 4.6 Count 10^3/ul (4.8-1 0.8) Red Blood 4.28 Count 10^6/ul (4.20- 5.40) Hemoglobin 13.0 g/dl (12.0-16. 0) Hematocrit 38.8 % (37.0-47.0) Mean 90.7 Corpuscular fl (82.0-101.0 Volume ) Mean 30.4 Corpuscular pg (29.0-33.0) Hemoglobin Mean 33.5 Corpuscular g/dl (32.0-37. Hemoglobin Conc 0) ent Red Cell 13.2 Distribution % (11.5-14.5) Width Platelet Count 171 10^3/UL (140-4 15) Mean Platelet 10.8 Volume fl (7.4-10.4) Immature 0.000 Granulocytes % % (0.001-0.429 ) Neutrophils % 48.4 % (39.0-77.0) Lymphocytes % 40.9 % (15.0-51.0) Monocytes % 7.8 % (0.0-11.0) Eosinophils % 2.2 % (0.0-7.0) Basophils % 0.7 % (0.0-2.0) Nucleated Red 0.0 Blood Cells % /100WBC (0.0-0 .0) Immature 0.000 Granulocytes # 10^3/ul (0.0-0 .031) Neutrophils # 2.2 10^3/ul (1.6-7 .5) Lymphocytes # 1.9 10^3/ul (0.8-2 .9) Monocytes # 0.4 10^3/ul (0.3-0 .9) Eosinophils # 0.1 10^3/ul (0.0-0 .5) Basophils # 0.0 10^3/ul (0.0-0 .1) Nucleated Red 0.0 Blood Cells # 10^3/ul (0.0-0 .0) Sodium Level 142 mmol/L (135-14 4) Potassium 4.3 Level mmol/L (3.5-5. 1) Chloride Level 106 mmol/L (97-110 ) Carbon Dioxide 28 Level mmol/L (21-31) Anion Gap 8 (5-13) Blood Urea 24 Nitrogen mg/dl (7-20) Creatinine 0.91 mg/dl (0.44-1. 00) Est Glomerular > 60 Filtrat mL/min (>60) Rate mL/min Glucose Level 135 mg/dl (70-220) Calcium Level 9.6 mg/dl (8.4-10. 2) Magnesium 1.8 Level mg/dl (1.7-2.5 ) Test 04/13/19 11:45 Bedside 130 Glucose mg/dL (70-220) LELE CURTIS MD Apr 13, 2019 14:51
[2019-04-13 15:34] VITALS: BP 153/83; PULSE 65; RESP 18
[2019-04-13] MEDS: RIVAROXABAN 20 MG TABLET PO SCH (17:02)
== END 2019-04-13 17:47 | disposition home or self-care (01) | DRG 640 ==
LOC: E/R 15:51 → 6WM 18:44
PROVIDERS: ADMIT Internal Medicine; ATTEND Internal Medicine
DX: E86.0 Dehydration (principal); K85.90 Acute pancreatitis without necrosis or infection, unspecified; G45.9 Transient cerebral ischemic attack, unspecified; I48.0 Paroxysmal atrial fibrillation; E11.9 Type 2 diabetes mellitus without complications; I10 Essential (primary) hypertension; E78.5 Hyperlipidemia, unspecified; G40.909 Epilepsy, unspecified, not intractable, without status epilepticus; I65.03 Occlusion and stenosis of bilateral vertebral arteries; E66.9 Obesity, unspecified; Z68.33 Body mass index [BMI] 33.0-33.9, adult; Z79.4 Long term (current) use of insulin; Z79.82 Long term (current) use of aspirin; Z79.01 Long term (current) use of anticoagulants; Z79.02 Long term (current) use of antithrombotics/antiplatelets
CPT/HCPCS: 36415; 70450; 70496; 70498; 70551; 71045; 76705; 80048; 80053; 80061; 81003; 82962; 83036; 83690; 83735; 84443; 84484; 85025; 85610; 85730; 93005; 93306; 97161; J1815; J1953; J2060; J3475; J7030; J7042; Q9967

== ENCOUNTER 2019-04-30 07:20 | Inpatient (IN) | payer OTHER ==
[~2019-04-30] VITALS: Ht 165.1 cm; Wt 92.2 kg
[~2019-04-30 07:20] MED LIST changes: -ACET-141 PO; +ACET325T45 PO; -ALBU18HF INHALATION; +AMI5 PO; +ASPI-535 PO; +BUSP10TA2 PO; +BUTE12CR2 TOP; +CITA10TA5 PO; +DOCU-159 PO; +FAMO-96 PO; -HYDR12.58 PO; +IBUP-1542 PO; +LEVE500T8 PO; +MAGN400T27 PO; +MAGN400T28 PO; +METF-849 PO; +OXCA150T43 PO; +PENI500T PO
[2019-04-30] MEDS ORDERED: LEVETIRACETAM 1000 MG (PMX) 100 ML IVPB STA (07:38)
--- NOTE | 2019-04-30 08:10 | ERD ---
ER Documentation Chief Complaint Chief Complaint witessed seizure last night & this morning; right arm pain; SOB ; dizziness HPI This is a 64-year-old female with a past medical history of hypertension, hyperlipidemia, diabetes, hypomagnesemia, paroxysmal A. 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 The patient's family reports that since February, the patient has been having seizures on and off. The patient has had multiple admissions for seizures and for TIAs. During her recent admission, the patient was found to saab ve paroxysmal atrial fibrillation. The patient is currently on aspirin and Xarelto at home for anticoagulation. The patient's family reports that they are not convinced that all of these episodes or seizures. The patient does have reported anxiety and sometimes will work herself up and she will purposefully shake. When the family is able to calm her down, she is reportedly awake and alert immediately. This is what seemed to occur last night according to the patient's family. However, this morning, the patient had a 1 to 2-minute episode of full body shaking and was confused for several minutes after the fact. This seemed more like a seizure. That said, the patient's family also thought they noticed a right-sided facial droop. Once the patient returned to baseline, she also reported pain to the right arm. In the ER today, the patient does not have a facial droop. She does not have any strength or sensory deficits. She has no weakness or numbness or tingling to the face or e xtremities. The patient currently feels very anxious, short of breath and a little lightheaded. The patient denies feeling sick recently. The patient denies fever or chills. The patient has had no headache or vision changes. The patient does not endorse neck or back pain. The patient denies dizziness. The room is not spinning. The patient has had no chest pain or pressure. She does not endorse any pleuritic pain or chest tightness. The patient denies nausea or vomiting. The patient denies abdominal pain. The patient denies changes to bowel movements or urination. ROS All systems reviewed and are negative except as per history of present illness. Medications Home Meds Active Scripts Rivaroxaban* (Xarelto*) 20 Mg Tablet, 20 MG PO WITH DINNER, #30 TAB Prov:BENITO AG MD 12/11/18 Metoprolol Tartrate* (Lopressor*) 50 Mg Tab, 50 MG PO BID, #60 TAB Prov:BENITO AG MD 12/11/18 Reported Medications Magnesium Oxide* (Mag-Oxide*) 400 Mg Tablet, 400 MG PO BID, TAB 04/30/19 Citalopram Hydrobromide* (Citalopram Hydrobromide*) 10 Mg Tablet, 10 MG PO QPM, #30 TAB 04/30/19 Glipizide* (Glipizide*) 5 Mg Tablet, 5 MG PO BID WITH MEALS, TAB 04/30/19 Levetiracetam* (Levetiracetam*) 500 Mg Tablet, 500 MG PO BID, TAB 04/11/19 Metformin Hcl* (Metformin Hcl*) 1,000 Mg Tablet, 1000 MG PO WITH BREAKFAST DINN E, #30 TAB 12/06/18 Atorvastatin Calcium* (Atorvastatin Calcium*) 20 Mg Tablet, 20 MG PO QHS, #30 TAB 12/06/18 Lisinopril* (Lisinopril*) 10 Mg Tablet, 10 MG PO DAILY, #30 TAB 12/06/18 Discontinued Reported Medications Penicillin V Potassium* (Penicillin V K*) 500 Mg Tab, 500 MG PO QID, TAB STOP DATE 04/13/19 04/11/19 Ibuprofen* (Ibuprofen*) 600 Mg Tablet, 600 MG PO Q8 PRN for NEEDED, TAB 04/11/19 Magnesium Oxide* (Magnesium Oxide*) 400 Mg Tablet, 400 MG PO BID, TAB 04/11/19 Glipizide* (Glipizide*) 5 Mg Tablet, 5 MG PO BID, TAB 12/06/18 Allergies Allergies: Coded Allergies: codeine (Unverified Allergy, Unknown, 04/30/19) PMhx/Soc History of Surgery: Yes (L ankle sugery, L Leg surgery, Abd hernia x4, tonsillectomy) Anesthesia Reaction: No Hx Neurological Disorder: Yes (hx of seizures ) Hx Respiratory Disorders: No Hx Cardiac Disorders: Yes (HTN) Hx Psychiatric Problems: No Hx Miscellaneous Medical Probl: Yes (pls see EMR/Hx) Hx Alcohol Use: No Hx Substance Use: No Hx Tobacco Use: No FmHx Family History: diabetes Physical Exam Vitals Vital Signs Date Temp Pulse Resp B/P (MAP) Pulse Ox O2 O2 Flow FiO2 Time Delivery Rate 04/30/19 97.8 60 18 138/74 98 Room Air 09:33 (95) 04/30/19 97.8 72 20 198/86 98 07:21 (123) Physical Exam Const: No apparent distress, well-developed, well-nourished Head: Normocephalic, Atraumatic Eyes: Normal Conjunctiva. Extraocular movements intact. Pupils equal, round and reactive to light ENT: Normal External Ears, Nose. Dry mucous membranes. Poor dentition. Neck: Full range of motion. No meningismus. Resp: Clear to auscultation bilaterally, No wheezes, rales or rhonchi Cardio: Regular rate and rhythm. No murmurs, rubs or gallops Abd: Soft, non tender, non distended. Normal bowel sounds Skin: No petechiae or rashes Back: No midline tenderness. No CVA tenderness Ext: No cyanosis, or edema Neur: Awake and alert, oriented 4. Cranial nerves intact. No facial droop. Normal strength, sensation and coordination. Psych: Anxious Result Diagram: 04/30/19 0820 04/30/19 0820 Results 24 hrs Laboratory Tests Test 04/30/19 08:19 04/30/19 08:20 04/30/19 08:48 Prothrombin Time 14.4 Sec Prothrombin Time Ratio 1.1 INR International Normalized Ratio 1.11 White Blood Count 8.0 10^3/ul Red Blood Count 4.76 10^6/ul Hemoglobin 14.5 g/dl Hematocrit 43.3 % Mean Corpuscular Volume 91.0 fl Mean Corpuscular Hemoglobin 30.5 pg Mean Corpuscular Hemoglobin Concent 33.5 g/dl Red Cell Distribution Width 12.8 % Platelet Count 182 10^3/UL Mean Platelet Volume 10.7 fl Immature Granulocytes % 0.300 % Neutrophils % 69.2 % Lymphocytes % 22.0 % Monocytes % 6.5 % Eosinophils % 1.5 % Basophils % 0.5 % Nucleated Red Blood Cells % 0.0 /100WBC Immature Granulocytes # 0.020 10^3/ul Neutrophils # 5.5 10^3/ul Lymphocytes # 1.8 10^3/ul Monocytes # 0.5 10^3/ul Eosinophils # 0.1 10^3/ul Basophils # 0.0 10^3/ul Nucleated Red Blood Cells # 0.0 10^3/ul Urine Color YELLOW Urine Clarity CLEAR Urine pH 5.0 Urine Specific [place] 1.016 Urine Ketones NEGATIVE mg/dL Urine Nitrite NEGATIVE mg/dL Urine Bilirubin NEGATIVE mg/dL Urine Urobilinogen NEGATIVE mg/dL Urine Leukocyte Esterase NEGATIVE Geoff/ul Urine Microscopic RBC 1 /HPF Urine Microscopic WBC 2 /HPF Urine Squamous Epithelial Cells FEW /HPF Urine Hemoglobin NEGATIVE mg/dL Urine Glucose 3+ mg/dL Urine Total Protein 1+ mg/dl Sodium Level 139 mmol/L Potassium Level 4.5 mmol/L Chloride Level 103 mmol/L Carbon Dioxide Level 27 mmol/L Anion Gap 9 Blood Urea Nitrogen 27 mg/dl Creatinine 0.83 mg/dl Est Glomerular Filtrat Rate mL/min > 60 mL/min Glucose Level 153 mg/dl Calcium Level 10.1 mg/dl Phosphorus Level 3.0 mg/dl Magnesium Level 0.8 mg/dl Troponin I < 0.012 ng/ml Bedside Glucose 148 mg/dL Current Medications Medications Dose Sig/Maddy Start Time Status Last (Trade) Ordered Route PRN Stop Time Admin Dose Reason Admin 100 ml @ ONCE STAT 04/30/19 DC 04/30/19 Levetiracetam 400 mls/hr IVPB 07:38 04/30/19 08:43 07:52 Aspirin 324 mg ONCE ONCE 04/30/19 DC 04/30/19 (Aspirin) PO 09:00 04/30/19 08:44 09:01 Procedures/MDM MDM The patient's presentation warrants further investigation. Previous medical records, if available, were reviewed. LABS The patient's laboratory testing was obtained and reviewed. No emergent treatment was required unless described below. CBC: No E/o systemic infection or severe anemia or thrombocytopenia Chemistry: No E/o severe acidosis or alkalosis or renal failure or diabetic ketoacidosis. Hypomagnesemia evident. Elevated BUN with a BUN: Creatinine ratio of greater than 20: 1, concerning for dehydration. PT/INR: No E/o significant coagulopathy Troponin: No E/o acute ischemia Urine: Glucosuria and proteinuria, concerning for nephropathy. No E/o acute infection or hematuria EKG EKG read by me: Rate/Rhythm: Regular rate and rhythm at a rate of 68 bpm Intervals: Normal [place]: Normal Impression: No evidence of acute ischemia or arrhythmia IMAGING Imaging and Radiology interpretation reviewed. CXR FINDINGS: The cardiomediastinal silhouette is within normal limits. No focal pulmonary consolidations. There is no evidence of significant pleural effusion or pneumothorax. No suspicious osseous lesions. IMPRESSION: No radiographic evidence of acute cardiopulmonary disease. Electronically viewed and signed by Physician Khang on 04/30/2019 08:10 CT Head FINDINGS: CALVARIUM: Regional bones are intact. SINUSES: Paranasal sinuses and mastoid air cells are clear. BRAIN: There is a remote lacunar infarct with in the right caudate nucleus. Atherosclerotic calcifications at the cavernous siphons and within the bilateral vertebral arteries. Mild diminished attenuation in the periventricular white matter compatible with chronic small vessel ischemic changes. No evidence of an acute territorial infarction. There is no intracranial mass or evidence of hemorrhage. Ventricles and cisterns are unremarkable. IMPRESSION: 1. Negative for intracranial hemorrhage or other acute process. 2. Remote lacunar infarct within the right caudate nucleus. 3. Bilateral carotid and vertebral artery atherosclerosis. Mild chronic small vessel ischemic changes. Electronically viewed and signed by Physician Clementina on 04/30/2019 08:16 TREATMENT/DISPOSITION The patient presents for multiple complaints. The patient does have a history of arrhythmia, previous TIAs and seizures. The patient does also have a history of anxiety according to the family. The patient symptoms could be from multiple possible etiologies, get but given her overall presentation and known history of vertebral artery stenosis and occlusion, a TIA is certainly a possibility. The patient's NIH stroke scale at this time is 0. I do not see any evidence of large vessel occlusion. The patient's symptoms have been also ongoing on and off for greater than 24 hours. The patient is not a candidate for TPA or thrombectomy. There are no obvious changes to the CT scan today. I do not see evidence of intracranial hemorrhage. The patient was given a dose of aspirin in the emergency department. The patient was also bolused with Keppra in the event that this was a true seizure event. Given the patient's recurrent symptoms, I do feel that she would benefit from admission for repeat assessment. I have low suspicion for temporal arteritis, cavernous venous thrombosis, subdural hematoma, epidural hematoma, meningitis. The patient also endorses feeling lightheaded and very anxious. Anxiety is certainly a possibility given the history provided. That said, she was evaluated fully for other possible etiologies. The patient's magnesium is again quite low. This could be contributing to her symptoms today. In addition to TIA and seizures, syncope is also a possibility. The patient was treated with 2 g of magnesium in the emergency department as well. There is also evidence of dehydration. The patient was bolused with normal saline in the ER. The patient is not clinically orthostatic. The patient is not dizzy. I have decreased suspicion for vertigo. The patient has no signs of emergent or symptomatic anemia. The patient does not have any emergent electrolyte or metabolic emergencies. I have decrease suspicion for a thyroid disorder. The patient is not toxic appearing. I have decreased suspicion for an infectious etiology of symptoms. The patient's EKG and troponin are reassuring. I have low suspicion for acute coronary syndrome. I do not see evidence of any emergent cardiac arrhythmia, which includes but is not limited to heart block, Brugada syndrome or WPW. The patient has no heart murmurs or rales. There is no evidence of cardiomegaly on exam or chest xray. I have low suspicion for hypertrophic cardiomyopathy. I do not see evidence of CHF. The patient does not endorse any chest or pleuritic pain. The history is negative for bleeding or clotting disorders. The patient has not been involved in any recent prolonged trips or surgeries or hospitalizations. The patient has no calf tenderness or swelling. I have decreased suspicion for PE as the etiology of symptoms. ADMISSION At this time, I feel that the patient requires admission for further evaluation and management. The patient will be admitted to Panel in accordance with the patient's insurance. The patient was accepted by Dr. Lopez at 10:30AM on 04/30/2019. DISCLAIMER Inadvertent spelling and grammatical errors are likely due to EHR/dictation software use and do not reflect on the overall quality of patient care. Note that the electronic time recorded on this note does not necessarily reflect the actual time of the patient encounter. Departure Diagnosis: Primary Impression: TIA (transient ischemic attack) Additional Impressions: Breakthrough seizure Lightheadedness Anxiousness Hypomagnesemia Dehydration Elevated BUN Condition: Serious LAURA ESCALERA MD Apr 30, 2019 08:01
[2019-04-30] MEDS ORDERED: ASPIRIN 81 MG TAB PO ONE (09:00)
[2019-04-30] MEDS ORDERED: MAGNESIUM SULFATE 2 GM/50 ML 50 ML IVPB ONE (10:30)
[2019-04-30] MEDS ORDERED: ACETAMINOPHEN 325 MG TAB PO PRN (10:30)
[2019-04-30] MEDS ORDERED: ONDANSETRON 4 MG INJ IV PRN ×2 (10:30→14:00)
[2019-04-30] MEDS ORDERED: LORAZEPAM 2 MG INJ IV ONE (12:00)
[2019-04-30] MEDS ORDERED: DOCUSATE SODIUM 100 MG CAP PO PRN (14:00)
[2019-04-30] MEDS ORDERED: LORAZEPAM 2 MG INJ IV PRN (14:00)
[2019-04-30] MEDS ORDERED: NACL 0.9% 3 ML SYG IV SCH (14:00)
--- NOTE | 2019-04-30 14:05 | CONSI ---
Assessment/Plan Assessment/Plan Assessment/Plan (Recall) 64 F c/ afib, reported epilepsy, cerebrovascular disease and multiple other comorbidities, who presents for evaluation of recurrent spells concerning for seizures.. A typical spell was witnessed by me in the ER, and appeared to be nonphysiologic.. That said, she could legitimately have underlying epilepsy with superimposed pseudoseizures.. Head CT is unrevealing. P: EEG in an attempt to capture a spell for electrophysiologic characterization OK to continue Keppra per ops for now Ativan iv prn prolonged seizure (> 5 min) OK to continue Xarelto for secondary stroke prevention PT/OT/ST as necessary Other management and supportive care per primary Will follow Consultation Date/Type/Reason Admit Date/Time Type of Consult Neurology Reason for Consultation seizure Requesting Provider: TERA TARANGO NP Date/Time of Note DATE: 04/30/19 TIME: 13:57 Hx of Present Illness Neurology is consulted to evaluate seizure vs. tia.. Patient had a witnessed shaking spell during this present encounter, which was non-physiologic.. Patient is a poor historian. It is elsewhere noted: This is a 64-year-old female with a past medical history of hypertension, hyperlipidemia, diabetes, hypomagnesemia, paroxysmal A. 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 The patient's family reports that since February, the patient has been having seizures on and off. The patient has had multiple admissions for seizures and for TIAs. During her recent admission, the patient was found to have paroxysmal atrial fibrillation. The patient is currently on aspirin and Xarelto at home for anticoagulation. The patient's family reports that they are not convinced that all of these episodes or seizures. The patient does have reported anxiety and sometimes will work herself up and she will purposefully shake. When the family is able to calm her down, she is reportedly awake and alert immediately. This is what seemed to occur last night according to the p carlos's family. However, this morning, the patient had a 1 to 2-minute episode of full body shaking and was confused for several minutes after the fact. This seemed more like a seizure. That said, the patient's family also thought they noticed a right-sided facial droop. Once the patient returned to baseline, she also reported pain to the right arm. In the ER today, the patient does not have a facial droop. She does not have any strength or sensory deficits. She has no weakness or numbness or tingling to the face or extremities. The patient currently feels very anxious, short of breath and a little lightheaded. The patient denies feeling sick recently. The patient denies fever or chills. The patient has had no headache or vision changes. The patient does not endorse neck or back pain. The patient denies dizziness. The room is not spinning. The patient has had no chest pain or pressure. She does not endorse any pleuritic pain or chest tightness. The patient denies nausea or vomiting. The patient denies abdominal pain. The patient denies changes to bowel movements or u rination. per HPI Objective Exam Vitals Vital Signs Date Temp Pulse Resp B/P (MAP) Pulse Ox O2 O2 Flow FiO2 Time Delivery Rate 04/30/19 98.2 63 16 141/73 98 Room Air 13:37 (95) Exam PE: Gen Appearance: No Apparent Distress HEENT: Normocephalic Abdomen: Soft Extremities: Dry NE: The patient was alert and oriented to person and hospital. Language was normal. Fund of knowledge was limited. Pupils were equal and reactive to light. There was no afferent pupillary defect. Visual cervantes were normal. Funduscopic examination was limited. Extra-ocular movements were full. Ptosis was absent. There was no nystagmus. Facial sensation was normal. Face was symmetric with normal strength. Hearing was grossly intact. Palate movements were normal. Neck strength was normal. There was normal tongue bulk and speed of movement. Tone was normal. Muscle bulk was normal. I did not see fasciculations. Arms and legs were symmetric. Vibration sensation was reduced distally. Temperature and pinprick sensation was normal. Rapid alternating movements were normal. There was no dysmetria. There was no intention tremor. Gait was deferred due to bedrest. Arm and leg reflexes were symmetric. Medina's sign was absent. Plantar responses were flexor. Results Result Diagram: 04/30/19 0820 04/30/19 0820 Results 24hrs Laboratory Tests Test 04/30/19 08:19 04/30/19 08:20 04/30/19 08:48 Prothrombin Time 14.4 Prothrombin Time Ratio 1.1 INR International Normalized Ratio 1.11 White Blood Count 8.0 # Red Blood Count 4.76 Hemoglobin 14.5 Hematocrit 43.3 Mean Corpuscular Volume 91.0 Mean Corpuscular Hemoglobin 30.5 Mean Corpuscular Hemoglobin Concent 33.5 Red Cell Distribution Width 12.8 Platelet Count 182 Mean Platelet Volume 10.7 H Immature Granulocytes % 0.300 Neutrophils % 69.2 Lymphocytes % 22.0 Monocytes % 6.5 Eosinophils % 1.5 Basophils % 0.5 Nucleated Red Blood Cells % 0.0 Immature Granulocytes # 0.020 Neutrophils # 5.5 Lymphocytes # 1.8 Monocytes # 0.5 Eosinophils # 0.1 Basophils # 0.0 Nucleated Red Blood Cells # 0.0 Urine Color YELLOW Urine Clarity CLEAR Urine pH 5.0 Urine Specific [place] 1.016 Urine Ketones NEGATIVE Urine Nitrite NEGATIVE Urine Bilirubin NEGATIVE Urine Urobilinogen NEGATIVE Urine Leukocyte Esterase NEGATIVE Urine Microscopic RBC 1 Urine Microscopic WBC 2 Urine Squamous Epithelial Cells FEW Urine Hemoglobin NEGATIVE Urine Glucose 3+ H Urine Total Protein 1+ H Sodium Level 139 Potassium Level 4.5 Chloride Level 103 Carbon Dioxide Level 27 Anion Gap 9 Blood Urea Nitrogen 27 H Creatinine 0.83 Est Glomerular Filtrat Rate mL/min > 60 Glucose Level 153 Calcium Level 10.1 Phosphorus Level 3.0 Magnesium Level 0.8 *L Troponin I < 0.012 Bedside Glucose 148 Past Medical History reviewed Home Meds Active Scripts Rivaroxaban* (Xarelto*) 20 Mg Tablet, 20 MG PO WITH DINNER, #30 TAB Prov:BENITO AG MD 12/11/18 Metoprolol Tartrate* (Lopressor*) 50 Mg Tab, 50 MG PO BID, #60 TAB Prov:BENITO AG MD 12/11/18 Reported Medications Magnesium Oxide* (Mag-Oxide*) 400 Mg Tablet, 400 MG PO BID, TAB 04/30/19 Citalopram Hydrobromide* (Citalopram Hydrobromide*) 10 Mg Tablet, 10 MG PO QPM, #30 TAB 04/30/19 Glipizide* (Glipizide*) 5 Mg Tablet, 5 MG PO BID WITH MEALS, TAB 04/30/19 Levetiracetam* (Levetiracetam*) 500 Mg Tablet, 500 MG PO BID, TAB 04/11/19 Metformin Hcl* (Metformin Hcl*) 1,000 Mg Tablet, 1000 MG PO WITH BREAKFAST DINNE, #30 TAB 12/06/18 Atorvastatin Calcium* (Atorvastatin Calcium*) 20 Mg Tablet, 20 MG PO QHS, #30 TAB 12/06/18 Lisinopril* (Lisinopril*) 10 Mg Tablet, 10 MG PO DAILY, #30 TAB 12/06/18 Discontinued Reported Medications Penicillin V Potassium* (Penicillin V K*) 500 Mg Tab, 500 MG PO QID, TAB STOP DATE 04/13/19 04/11/19 Ibuprofen* (Ibuprofen*) 600 Mg Tablet, 600 MG PO Q8 PRN for NEEDED, TAB 04/11/19 Magnesium Oxide* (Magnesium Oxide*) 400 Mg Tablet, 400 MG PO BID, TAB 04/11/19 Glipizide* (Glipizide*) 5 Mg Tablet, 5 MG PO BID, TAB 12/06/18 Medications Current Medications Ondansetron HCl (Zofran Inj) 4 mg ER BRIDGE PRN IV NAUSEA/VOMITING; Start 04/30/19 at 10:30; Stop 05/01/19 at 10:29 Acetaminophen (Tylenol Tab) 650 mg ER BRIDGE PRN PO .MILD PAIN 1-3 OR TEMP; Start 04/30/19 at 10:30; Stop 05/01/19 at 10:29 Allergies: Coded Allergies: codeine (Unverified Allergy, Unknown, 04/30/19) Social History Smoking Status: Never smoker MARCIAL BRUMFIELD Apr 30, 2019 14:05
[2019-04-30] MEDS ORDERED: GLUCOSE GEL 15 GRAM TUBE BUCCAL PRN (14:30)
[2019-04-30] MEDS ORDERED: GLUCOSE GEL 15 GRAM TUBE PO PRN ×2 (14:30)
[2019-04-30] MEDS ORDERED: DEXTROSE 50% 50 ML SYRINGE IV PRN ×2 (14:30)
[2019-04-30] MEDS ORDERED: MAGNESIUM SULFATE 4 GM/100 ML 100 ML IVPB ONE (14:30)
[2019-04-30] MEDS ORDERED: GLUCAGON 1 MG INJ IM PRN (14:30)
--- NOTE | 2019-04-30 14:48 | HP ---
Date/Time of Note Date/Time of Note DATE: 04/30/19 TIME: 14:29 Assessment/Plan VTE Prophylaxis SCD applied (from Nsg): Yes Pharmacological prophylaxis: rivaroxaban Lines/Catheters IV Catheter Type (from Nrsg): Saline Lock Assessment/Plan Hospital Course SUBJECTIVE: Lying in bed, awake and oriented. OBJECTIVE: Vital signs-see below PHYSICAL EXAM: Constitutional: Adequately built,not in acute distress. HEENT: Head atraumatic and normocephalic. Eyes: Extraocular muscles intact. Anicteric sclerae. Pupils equal bilaterally, reactive to light. NECK: Supple without lymph node. CHEST: Clear and good breath sounds equally. No wheezing. No rhonchi. HEART: S1, S2. Regular rate and rhythm. ABDOMEN: Soft/non tender with no rebound tenderness. Bowel sounds were present. EXTREMITIES: No cyanosis, clubbing or edema. NEUROLOGIC: Alert and oriented x3. +Rt facial asymmetry.Speech clear. Gen weaknessx4 extremities. No sensory deficit.Gait not assessed PSYCHOSOCIAL: No signs of depression. INTEGUMENTARY: No open wounds. ASSESSMENT AND PLAN:64 yo F w/ afib/on ATC, dm2, dlp, vit d deficiency, depression, debility here w/[id number] tremors and facial asymmetry ... Seizure-like activities vs ??involuntary movements/Tremors -Mag level=0.8 -question lowering seizure threshold?? -Replete mag -Continue home Keppra dose. -PRN Ativan -MRI -Seizure precaution -Neurology consultation Facial asymmetry/gait disturbances likely from previous CVA -Patient's family is concerned about new stroke, in light of elevated blood pressure on arrival, we will go ahead and obtain a new MRI to rule out acute CVA... -Aspirin/statin prophylaxis -PT/ST/OT Acute on chronic hypomagnesemia of unclear etiology -patient takes mag oxide 400 mg at home. S/p 2 gram mag sulfate in ER. Patient with a magnesium of 0.8, as such we will replete with additional 4 g magnesium sulfate IV with repeat labs in a.m. -Nephrology consultation for underlying causes to identify if any.. HTN -BP elevated x1 time in ER -Resume home medications and monitor Paroxysmal atrial fibrillation -in NSR now -Resume beta-césar/Xarelto Dyslipidemia -Statin DMII -A1c -Basal/bolus insulin -Hold metformin for now -Carb controlled diet Depression -Resume Lexapro Vitamin D deficiency -Obtain level and treat accordingly. DVT prophylaxis: Xarelto PUD prophylaxis: Pepcid Rest of the management depend on hospital course. Approximately 60-minute was spent on this history and physical. Patient was seen in collaboration with Result Diagram: 04/30/19 0820 04/30/19 0820 Results 24hrs Laboratory Tests Test 04/30/19 08:19 04/30/19 08:20 04/30/19 08:48 Prothrombin Time 14.4 Prothrombin Time Ratio 1.1 INR International Normalized Ratio 1.11 White Blood Count 8.0 # Red Blood Count 4.76 Hemoglobin 14.5 Hematocrit 43.3 Mean Corpuscular Volume 91.0 Mean Corpuscular Hemoglobin 30.5 Mean Corpuscular Hemoglobin Concent 33.5 Red Cell Distribution Width 12.8 Platelet Count 182 Mean Platelet Volume 10.7 H Immature Granulocytes % 0.300 Neutrophils % 69.2 Lymphocytes % 22.0 Monocytes % 6.5 Eosinophils % 1.5 Basophils % 0.5 Nucleated Red Blood Cells % 0.0 Immature Granulocytes # 0.020 Neutrophils # 5.5 Lymphocytes # 1.8 Monocytes # 0.5 Eosinophils # 0.1 Basophils # 0.0 Nucleated Red Blood Cells # 0.0 Urine Color YELLOW Urine Clarity CLEAR Urine pH 5.0 Urine Specific [place] 1.016 Urine Ketones NEGATIVE Urine Nitrite NEGATIVE Urine Bilirubin NEGATIVE Urine Urobilinogen NEGATIVE Urine Leukocyte Esterase NEGATIVE Urine Microscopic RBC 1 Urine Microscopic WBC 2 Urine Squamous Epithelial Cells FEW Urine Hemoglobin NEGATIVE Urine Glucose 3+ H Urine Total Protein 1+ H Sodium Level 139 Potassium Level 4.5 Chloride Level 103 Carbon Dioxide Level 27 Anion Gap 9 Blood Urea Nitrogen 27 H Creatinine 0.83 Est Glomerular Filtrat Rate mL/min > 60 Glucose Level 153 Calcium Level 10.1 Phosphorus Level 3.0 Magnesium Level 0.8 *L Troponin I < 0.012 Bedside Glucose 148 HPI/ROS Admit Date/Time Admit Date/Time Hx of Present Illness This is a 64-year-old female with a history of CVA, vertebral artery occlusions, diabetes, hypertension, vitamin D deficiency, hypomagnesemia, depression, seizure/epilepsy disorders, presented to the emergency room with reported seizure episodes with right facial droop and aphasia started last night. She has been also getting more wobbly w/ gait lately. Patient denied chest pain, palpitation, vision changes, speech difficulties, nausea, vomiting, abdominal pain, fever, chills, diarrhea, numbness, tingling, dizziness, loss of consciousness, new weakness or focal deficit, headache, or other constitutional symptoms. Head CT negative for intracranial hemorrhage or other acute process. There was evidence of a remote lacunar infarct within the right caudate nucleus with bilateral carotid and vertebral artery atherosclerosis. Chest x-ray with no acute cardiopulmonary disease. Initial vital signs with blood pressure 198/86. Labs with magnesium 0.8. Pt was given lorazepam 0.5 mg IV and magnesium sulfate 2 g in the emergency room. She was also given Keppra and aspirin. ROS A 12 point review of system was assessed and is negative other than what is mentioned in the HPI. PMH/Family/Social Past Medical History See HPI Medications Current Medications Ondansetron HCl (Zofran Inj) 4 mg ER BRIDGE PRN IV NAUSEA/VOMITING; Start 04/30/19 at 10:30; Stop 05/01/19 at 10:29 Acetaminophen (Tylenol Tab) 650 mg ER BRIDGE PRN PO .MILD PAIN 1-3 OR TEMP; Start 04/30/19 at 10:30; Stop 05/01/19 at 10:29 Lorazepam (Ativan) 1 mg Q2 PRN IV SEIZURES; Start 04/30/19 at 14:00; Status UNV Miscellaneous Information (* Miscellaneous Pharmacy Order) Discontinue current oral sulfonylur... ONCE ONCE XX ; Start 04/30/19 at 14:00; Stop 04/30/19 at 14:01; Status UNV Diagnostic Test (Pha) (Accu-Chek) 1 ea XX ; Start 05/01/19 at 02:00; Status UNV Insulin Glargine (Lantus) 14 units DAILY@2000 SC ; Start 04/30/19 at 20:00; Status UNV Miscellaneous Information (* Miscellaneous Pharmacy Order) HYPOGLYCEMIA PROTOCOL w... ONCE ONCE XX ; Start 04/30/19 at 14:00; Stop 04/30/19 at 14:01; Status UNV Insulin Aspart (Novolog Insulin Pen) NOVOLOG *MILD* ALGORITHM WITH MEALS BEDTIME SC ; Start 04/30/19 at 18:00; Status UNV Miscellaneous Information (* Miscellaneous Pharmacy Order) Discontinue all previ... ONCE ONCE XX ; Start 04/30/19 at 14:00; Stop 04/30/19 at 14:01; Status UNV IV Flush (NS 3 ml) 3 ml PER PROTOCOL IV ; Start 04/30/19 at 14:00 Ondansetron HCl (Zofran Inj) 4 mg Q6H PRN IV NAUSEA/VOMITING; Start 04/30/19 at 14:00; Status UNV Acetaminophen (Tylenol Tab) 650 mg Q6H PRN PO .PAIN 1-3 OR TEMP; Start 04/30/19 at 14:00; Status UNV Docusate Sodium (Colace) 100 mg Q12H PRN PO .CONSTIPATION; Start 04/30/19 at 14:00; Status UNV Famotidine (Pepcid) 20 mg Q12 PO ; Start 04/30/19 at 21:00; Status UNV Atorvastatin Calcium (Lipitor) 20 mg QHS PO ; Start 04/30/19 at 21:00; Status U NV Citalopram Hydrobromide (Celexa) 10 mg QPM PO ; Start 04/30/19 at 21:00; Status UNV Levetiracetam (Keppra) 500 mg BID PO ; Start 04/30/19 at 21:00; Status UNV Lisinopril (Zestril) 10 mg DAILY PO ; Start 05/01/19 at 09:00; Status UNV Magnesium Oxide (Mag-Ox 400) 400 mg BID PO ; Start 04/30/19 at 21:00; Status UNV Metoprolol Tartrate (Lopressor) 50 mg BID PO ; Start 04/30/19 at 21:00; Status UNV Rivaroxaban (Xarelto) 20 mg WITH DINNER PO ; Start 04/30/19 at 18:00; Status UNV Coded Allergies: codeine (Unverified Allergy, Unknown, 04/30/19) Past Surgical History Left ankle surgery/leg surgery/tonsillectomy Family History Significant Family History: no pertinent family hx Social History Patient denied history of alcohol, smoking or illicit drug use Smoking Status: Never smoker Exam/Review of Systems Vital Signs Vitals Vital Signs Date Temp Pulse Resp B/P (MAP) Pulse Ox O2 O2 Flow FiO2 Time Delivery Rate 04/30/19 98.2 63 16 141/73 98 Room Air 13:37 (95) TERA TARANGO NP Apr 30, 2019 14:46
[2019-04-30] MEDS: INSULIN ASPART [NOVOLOG] 3 ML PEN SC SCH ×2 (18:00→21:00)
[2019-04-30] MEDS: RIVAROXABAN 20 MG TABLET PO SCH (18:36)
--- NOTE | 2019-04-30 18:52 | CONS ---
DATE OF ADMISSION: 04/30/2019 DATE OF CONSULTATION: 04/30/2019 TYPE OF CONSULTATION: Nephrology. REASON FOR CONSULTATION: Hypomagnesemia. PROVIDER REQUESTING CONSULT: Marisol Marquez NP HISTORY OF PRESENT ILLNESS: This is a 64-year-old female with a past medical history of seizure, his tory of hypertension, AFib, dyslipidemia, diabetes, depression, vitamin D deficiency who presents to [facility] with seizure episode. The patient denied any chest pain, any numbness, tingling, dizziness, loss of consciousness. The patient upon arrival had a CT scan of the head which showed no acute process. The patient upon arrival was also noted to be hypomagnesemic with magnesiu m levels of 0.8. The patient was given magnesium sulfate in the emergency room. In terms of patient's renal history, the patient has had normal renal function. The patient also sta drew that she has been recently diagnosed with a low magnesium oxide approximately 4 months ago. The patient denies any prior history of hypomagnesemia. The patient does admit having a sister who has c omplaints of hypomagnesemia. The patient states she usually takes magnesium supplement. When she st ops taking the supplementation, her magnesium levels apparently declined. The patient denies any rec ent alcohol use. Denies any other change in medication. PAST MEDICAL HISTORY: History of diabetes, dyslipidemia, hypertension, history of AFib, history of h ypomagnesemia. PAST SURGICAL HISTORY: Left ankle surgery, left leg surgery. FAMILY HISTORY: Family history of hypomagnesemia. MEDICATIONS: Have has been reviewed. ALLERGIES: HAVE HAS BEEN REVIEWED. REVIEW OF SYSTEMS: A 14-point review of systems was conducted. Pertinent positives stated in HPI, o therwise negative. PHYSICAL EXAMINATION: VITAL SIGNS: Blood pressure is 120/67, respiration 18, pulse 71, temperature 98.2. HEENT: Head is normocephalic. NECK: Supple. HEART: Regular rate. LUNGS: Show diminished breath sounds at the base. ABDOMEN: Soft, nontender to palpation without rebound or guarding. EXTREMITIES: Negative for clubbing, cyanosis. No edema. DERMATOLOGIC: No rashes. MUSCULOSKELETAL: No joint effusion. NEUROLOGIC: No focal deficits. LABORATORY DATA: Have been reviewed. IMAGING STUDIES: Have been reviewed. ASSESSMENT AND PLAN: This is a 64-year-old female who presents with: 1. Hypomagnesemia. Etiology is concerning for possible renal magnesium wasting. The patient does n ot have associated hypokalemia or metabolic alkalosis that you would typically see in Bartter or Gite lman Syndrome. Possibility of another renal magnesium wasting syndrome is a consideration. Plan at this point is to check fractional excretion of magnesium to see if there is any evidence of renal mag nesium wasting. We will continue aggressive supplementation of magnesium levels. We will continue t o monitor closely. 2. Seizure disorder, epilepsy, possibly precipitated by acute magnesemia. We will continue to monit or. Continue to replete magnesium levels. Continue antiepileptic medications. Follow up with neuro logy. 3. Hypertension. Continue current blood pressure regimen. 4. Atrial fibrillation. Continue medical management. 5. Dyslipidemia. Continue statin therapy. 6. Diabetes. Continue current insulin regimen. 7. Depression. Continue . 8. Vitamin D deficiency. Continue to monitor and replete. Thank you, Marisol, for this interesting consult. It will be a pleasure to follow patient with you thr oughout the hospital course. Dictated By: JACQUE RAMIREZ DO NR/NTS Conf#: [id number] DID#: [id number] CC: MARCELO CHRISTINE MD;*EndCC*
[2019-04-30] MEDS: INSULIN GLARGINE [LANTus] (100 UNITS/ML) SYG SC SCH (20:41)
[2019-04-30] MEDS ORDERED: ATORVASTATIN 20 MG TAB PO SCH (21:00)
[2019-04-30 21:07] VITALS: Ht 165.1 cm; Wt 92.2 kg
[2019-04-30 21:30] VITALS: BP 151/71; PULSE 61
[2019-04-30] MEDS: MAGNESIUM OXIDE 400 MG TAB PO SCH (22:15)
[2019-04-30] MEDS: LEVETIRACETAM 500 MG TAB PO SCH (22:15)
[2019-04-30] MEDS: METOPROLOL 50 MG TAB PO SCH (22:15)
[2019-04-30] MEDS: CITALOPRAM 20 MG TAB PO SCH (22:16)
[2019-04-30] MEDS: FAMOTIDINE 20 MG TAB PO SCH (22:16)
[2019-04-30] MEDS: ATORVASTATIN 20 MG TAB PO SCH (22:17)
[2019-05-01 00:07] VITALS: BP 133/70; PULSE 66; RESP 20
[2019-05-01] MEDS: ACCU-CHEK XX SCH (02:00)
[2019-05-01 03:59] VITALS: BP 113/57; PULSE 56; RESP 18
[2019-05-01] MEDS: ACETAMINOPHEN 325 MG TAB PO PRN (06:21)
[2019-05-01] MEDS: INSULIN ASPART [NOVOLOG] 3 ML PEN SC SCH ×4 (08:00→21:00)
[2019-05-01 08:07] VITALS: BP 108/66; PULSE 60; RESP 19
--- NOTE | 2019-05-01 08:45 | PN ---
DATE: 05/01/2019 SUBJECTIVE: The patient is stable, no events overnight. No seizures noted. OBJECTIVE: VITAL SIGNS: Blood pressure is 113/57, respiration 18, pulse 56, temperature 97.7. HEENT: Head is normocephalic. NECK: Supple. HEART: Regular rate. LUNGS: Show diminished breath sounds at the base. ABDOMEN: Soft, nontender to palpation without rebound or guarding. EXTREMITIES: Negative for clubbing, cyanosis, no edema. DERMATOLOGIC: No rashes. MUSCULOSKELETAL: No joint effusion. NEUROLOGIC: No focal deficits. MEDICATIONS: Have been reviewed. LABORATORY DATA: Has been reviewed. IMAGING STUDIES: Have been reviewed. ASSESSMENT AND PLAN: 1. Hypomagnesemia, etiology is unclear, concerning for possibility of a renal magnesium wasting synd prudencio. The patient, however, does not have hypokalemia, metabolic alkalosis, which you would typicall y see with Bartter and Gitelman syndrome. Nevertheless, given recent history of persistent hypomagne semia and recent family history of hypomagnesemia, the possibility of renal magnesium wasting is a co nsideration. Plan at this point it is to check a fractional excretion of magnesium. We will continu e magnesium supplementation and monitor. 2. Seizure disorder. Etiology may be secondary to hypomagnesemia. Continue to monitor. Continue a ntiepileptic medications. Follow up with neurology. 3. Hypertension. Continue current blood pressure regimen. 4. Atrial fibrillation. Continue medical management. 5. Dyslipidemia. Continue statin therapy. 6. Diabetes. Continue current insulin regimen. 7. Vitamin D deficiency. Continue to monitor and replete. Dictated By: JACQUE SCRUGGS/TIAN Conf#: [id number] DID#: [id number] CC: BRODIE ROE MD;*EndCC*
[2019-05-01] MEDS: MAGNESIUM OXIDE 400 MG TAB PO SCH ×2 (09:02→20:23)
[2019-05-01] MEDS: ASPIRIN 81 MG TAB PO SCH (09:03)
[2019-05-01] MEDS: LISINOPRIL 10 MG TAB PO SCH (09:03)
[2019-05-01] MEDS: LEVETIRACETAM 500 MG TAB PO SCH ×2 (09:03→20:23)
[2019-05-01] MEDS: METOPROLOL 50 MG TAB PO SCH ×2 (09:04→20:23)
[2019-05-01] MEDS: FAMOTIDINE 20 MG TAB PO SCH ×2 (09:04→20:23)
--- NOTE | 2019-05-01 09:20 | PN ---
Date/Time of Note Date/Time of Note DATE: 05/01/19 TIME: 09:16 Assessment/Plan VTE Prophylaxis SCD applied (from Nsg): Yes Pharmacological prophylaxis: rivaroxaban Lines/Catheters IV Catheter Type (from Nrsg): Saline Lock Assessment/Plan Hospital Course SUBJECTIVE: No further tremors/seizure-like activities. more alert,pleasant and very talkative today. OBJECTIVE: Vital signs-see below PHYSICAL EXAM: Constitutional: Adequately built,not in acute distress. HEENT: Head atraumatic and normocephalic. Eyes: Extraocular muscles intact. Anicteric sclerae. Pupils equal bilaterally, reactive to light. NECK: Supple without lymph node. CHEST: Clear and good breath sounds equally. No wheezing. No rhonchi. HEART: S1, S2. Regular rate and rhythm. ABDOMEN: Soft/non tender with no rebound tenderness. Bowel sounds were present. EXTREMITIES: No cyanosis, clubbing or edema. NEUROLOGIC: Alert and oriented x3. No facial droop.Speech clear. Gen weaknessx4 extremities. No sensory deficit.Gait not assessed PSYCHOSOCIAL: No signs of depression. INTEGUMENTARY: No open wounds. ASSESSMENT AND PLAN:64 yo F w/ afib/on ATC, dm2, dlp, vit d deficiency, depression, debility here w/[id number] tremors and facial asymmetry ... Seizure-like activities vs ??involuntary movements/Tremors.Stable -Most likely culprit severe hypomagnesemia. -MRI unrevealing -Continue home Keppra dose. -PRN Ativan -Seizure precaution -f/u neuro recs Hx CVA -Cont Aspirin/statin prophylaxis -PT eval Acute on chronic hypomagnesemia of unclear etiology -s/p repletion-stable. -Cont.mag Oxide 400 bid -f/u nephro recs. HTN -stable -cont. home medications Paroxysmal atrial fibrillation -in NSR now -on beta-césar/Xarelto Dyslipidemia -Statin Hx DMII -A1c stable -cont. Basal/bolus insulin -Hold metformin for now -Carb controlled diet Depression -on Celexa Vitamin D deficiency -Vit D level noted -cont low dose sup DVT prophylaxis: Xarelto PUD prophylaxis: Pepcid Disp: Family interested in ECF placement or home health with extensive DME's. A t this time, will have physical therapy evaluate patient and will start DC planning accordingly. Patient was seen in collaboration with Result Diagram: 05/01/19 0505/01/19 05 Results 24hrs Laboratory Tests Test 04/30/19 18:48 04/30/19 20:34 04/30/19 21:56 05/01/19 05:21 Bedside Glucose 100 133 117 White Blood Count 5.5 # Red Blood Count 4.35 Hemoglobin 13.4 Hematocrit 39.5 Mean Corpuscular Volume 90.8 Mean Corpuscular 30.8 Hemoglobin Mean Corpuscular 33.9 Hemoglobin Concent Red Cell Distribution 12.9 Width Platelet Count 184 Mean Platelet Volume 10.6 H Immature Granulocytes % 0.200 Neutrophils % 58.9 Lymphocytes % 29.5 Monocytes % 9.1 Eosinophils % 1.8 Basophils % 0.5 Nucleated Red Blood 0.0 Cells % Immature Granulocytes # 0.010 Neutrophils # 3.3 Lymphocytes # 1.6 Monocytes # 0.5 Eosinophils # 0.1 Basophils # 0.0 Nucleated Red Blood 0.0 Cells # Sodium Level 140 Potassium Level 4.4 Chloride Level 104 Carbon Dioxide Level 27 Anion Gap 9 Blood Urea Nitrogen 26 H Creatinine 0.94 Est Glomerular Filtrat > 60 Rate mL/min Glucose Level 122 Hemoglobin A1c 5.8 Calcium Level 9.7 Magnesium Level 1.7 Total Bilirubin 1.6 H Direct Bilirubin 0.00 Indirect Bilirubin 1.6 H Aspartate Amino 20 Transf (AST/SGOT) Alanine 18 Aminotransferase (ALT/SG PT) Alkaline Phosphatase 79 Total Protein 7.0 Albumin 4.0 Globulin 3.00 Albumin/Globulin Ratio 1.33 Triglycerides Level 153 H Cholesterol Level 127 LDL Cholesterol, 67 Calculated HDL Cholesterol 29 L Cholesterol/HDL Ratio 4.3 Thyroid Stimulating 2.600 Hormone (TSH) Test 05/01/19 08:14 Bedside Glucose 126 Exam/Review of Systems Exam Vitals Vital Signs Date Temp Pulse Resp B/P (MAP) Pulse Ox O2 O2 Flow FiO2 Time Delivery Rate 05/01/19 98.1 60 19 108/66 95 08:07 (80) 05/01/19 Room Air 03:59 Intake and Output 04/30/19 04/30/19 05/01/19 1515:00 23:00 07:00 IntakeIntake Total 700 ml BalanceBalance 700 ml Results Results 24hrs Laboratory Tests Test 04/30/19 18:48 04/30/19 20:34 04/30/19 21:56 05/01/19 05:21 Bedside Glucose 100 133 117 White Blood Count 5.5 # Red Blood Count 4.35 Hemoglobin 13.4 Hematocrit 39.5 Mean Corpuscular Volume 90.8 Mean Corpuscular 30.8 Hemoglobin Mean Corpuscular 33.9 Hemoglobin Concent Red Cell Distribution 12.9 Width Platelet Count 184 Mean Platelet Volume 10.6 H Immature Granulocytes % 0.200 Neutrophils % 58.9 Lymphocytes % 29.5 Monocytes % 9.1 Eosinophils % 1.8 Basophils % 0.5 Nucleated Red Blood 0.0 Cells % Immature Granulocytes # 0.010 Neutrophils # 3.3 Lymphocytes # 1.6 Monocytes # 0.5 Eosinophils # 0.1 Basophils # 0.0 Nucleated Red Blood 0.0 Cells # Sodium Level 140 Potassium Level 4.4 Chloride Level 104 Carbon Dioxide Level 27 Anion Gap 9 Blood Urea Nitrogen 26 H Creatinine 0.94 Est Glomerular Filtrat > 60 Rate mL/min Glucose Level 122 Hemoglobin A1c 5.8 Calcium Level 9.7 Magnesium Level 1.7 Total Bilirubin 1.6 H Direct Bilirubin 0.00 Indirect Bilirubin 1.6 H Aspartate Amino 20 Transf (AST/SGOT) Alanine 18 Aminotransferase (ALT/SG PT) Alkaline Phosphatase 79 Total Protein 7.0 Albumin 4.0 Globulin 3.00 Albumin/Globulin Ratio 1.33 Triglycerides Level 153 H Cholesterol Level 127 LDL Cholesterol, 67 Calculated HDL Cholesterol 29 L Cholesterol/HDL Ratio 4.3 Thyroid Stimulating 2.600 Hormone (TSH) Test 05/01/19 08:14 Bedside Glucose 126 Medications Medication Current Medications Lorazepam (Ativan) 1 mg Q2 PRN IV SEIZURES; Start 04/30/19 at 14:00 Diagnostic Test (Pha) (Accu-Chek) 1 ea 02 XX ; Start 05/01/19 at 02:00 Insulin Glargine (Lantus) 14 units DAILY@1999 SC Last administered on 04/30/19at 20:41; Admin Dose 14 UNITS; Start 04/30/19 at 20:00 Insulin Aspart (Novolog Insulin Pen) NOVOLOG *MILD* ALGORITHM WITH MEALS BEDTIM E SC ; Start 04/30/19 at 18:00 IV Flush (NS 3 ml) 3 ml PER PROTOCOL IV ; Start 04/30/19 at 14:00 Ondansetron HCl (Zofran Inj) 4 mg Q6H PRN IV NAUSEA/VOMITING; Start 04/30/19 at 14:00 Acetaminophen (Tylenol Tab) 650 mg Q6H PRN PO .PAIN 1-3 OR TEMP Last administered on 05/01/19 06:21; Admin Dose 650 MG; Start 04/30/19 at 14:00 Docusate Sodium (Colace) 100 mg Q12H PRN PO .CONSTIPATION; Start 04/30/19 at 14:00 Famotidine (Pepcid) 20 mg Q12 PO Last administered on 05/01/19 09:04; Admin Dose 20 MG; Start 04/30/19 at 21:00 Citalopram Hydrobromide (Celexa) 10 mg QPM PO Last administered on 04/30/19 22: 16; Admin Dose 10 MG; Start 04/30/19 at 21:00 Levetiracetam (Keppra) 500 mg BID PO Last administered on 05/01/19 09:03; Admin Dose 500 MG; Start 04/30/19 at 21:00 Lisinopril (Zestril) 10 mg DAILY PO Last administered on 05/01/19 09:03; Admin Dose 10 MG; Start 05/01/19 at 09:00 Magnesium Oxide (Mag-Ox 400) 400 mg BID PO Last administered on 05/01/19 09:02; Admin Dose 400 MG; Start 04/30/19 at 21:00 Metoprolol Tartrate (Lopressor) 50 mg BID PO Last administered on 05/01/19 09:04; Admin Dose 50 MG; Start 04/30/19 at 21:00 Rivaroxaban (Xarelto) 20 mg WITH DINNER PO Last administered on 04/30/19at 1 8:36; Admin Dose 20 MG; Start 04/30/19 at 18:00 Miscellaneous Information 1 ea NOTE XX ; Start 04/30/19 at 14:30 Glucose (Glutose) 15 gm Q15M PRN PO DECREASED GLUCOSE; Start 04/30/19 at 14:30 Glucose (Glutose) 22.5 gm Q15M PRN PO DECREASED GLUCOSE; Start 04/30/19 at 14:30 Dextrose (D50w Syringe) 25 ml Q15M PRN IV DECREASED GLUCOSE; Start 04/30/19 at 14:30 Dextrose (D50w Syringe) 50 ml Q15M PRN IV DECREASED GLUCOSE; Start 04/30/19 at 14:30 Glucagon (Glucagen) 1 mg Q15M PRN IM DECREASED GLUCOSE; Start 04/30/19 at 14:30 Glucose (Glutose) 15 gm Q15M PRN BUCCAL DECREASED GLUCOSE; Start 04/30/19 at 14 :30 Atorvastatin Calcium (Lipitor) 80 mg QHS PO Last administered on 04/30/19at 22:17; Admin Dose 80 MG; Start 04/30/19 at 21:00 Aspirin (Aspirin) 81 mg DAILY PO Last administered on 05/01/19at 09:03; Admin Dose 81 MG; Start 05/01/19 at 09:00 Cholecalciferol (Vitamin D) 1,000 unit DAILY PO ; Start 05/01/19 at 09:00 TERA TARANGO NP May 01, 2019 09:20
[2019-05-01] MEDS: CHOLECALCIFEROL 1,000 UNIT TAB PO SCH (09:55)
[2019-05-01 12:00] VITALS: BP 111/66; PULSE 58; RESP 19
--- NOTE | 2019-05-01 14:57 | CONS ---
Assessment/Plan Assessment/Plan Assessment/Plan (Recall) 64 F c/ afib, reported epilepsy, cerebrovascular disease and multiple other comorbidities, who presents for evaluation of recurrent spells concerning for seizures.. A typical spell was witnessed by me in the ER, and appeared to be nonphysiologic.. That said, she could legitimately have underlying epilepsy with superimposed pseudoseizures.. Head CT is unrevealing. P: Await EEG in an attempt to capture a spell for electrophysiologic characterization OK to continue Keppra per ops for now Ativan iv prn prolonged seizure (> 5 min) OK to continue Xarelto for secondary stroke prevention PT/OT/ST as necessary Other management and supportive care per primary Will follow Consultation Date/Type/Reason Admit Date/Time Apr 30, 2019 at 10:20 Type of Consult Neurology Reason for Consultation seizure Requesting Provider: TERA TARANGO NP Date/Time of Note DATE: 05/01/19 TIME: 14:56 24 HR Interval Summary Free Text/Dictation Continues acute care Exam/Review of Systems Exam Vitals Vital Signs Date Temp Pulse Resp B/P (MAP) Pulse Ox O2 O2 Flow FiO2 Time Delivery Rate 05/01/19 98.7 58 19 111/66 95 12:00 (81) 05/01/19 Room Air 03:59 Intake and Output 04/30/19 04/30/19 05/01/19 1515:00 23:00 07:00 IntakeIntake Total 700 ml BalanceBalance 700 ml Results Result Diagram: 05/01/19 0521 05/01/19 0521 Results 24hrs Laboratory Tests Test 04/30/19 18:48 04/30/19 20:34 04/30/19 21:56 05/01/19 05:21 Bedside Glucose 100 133 117 White Blood Count 5.5 # Red Blood Count 4.35 Hemoglobin 13.4 Hematocrit 39.5 Mean Corpuscular Volume 90.8 Mean Corpuscular 30.8 Hemoglobin Mean Corpuscular 33.9 Hemoglobin Concent Red Cell Distribution 12.9 Width Platelet Count 184 Mean Platelet Volume 10.6 H Immature Granulocytes % 0.200 Neutrophils % 58.9 Lymphocytes % 29.5 Monocytes % 9.1 Eosinophils % 1.8 Basophils % 0.5 Nucleated Red Blood 0.0 Cells % Immature Granulocytes # 0.010 Neutrophils # 3.3 Lymphocytes # 1.6 Monocytes # 0.5 Eosinophils # 0.1 Basophils # 0.0 Nucleated Red Blood 0.0 Cells # Sodium Level 140 Potassium Level 4.4 Chloride Level 104 Carbon Dioxide Level 27 Anion Gap 9 Blood Urea Nitrogen 26 H Creatinine 0.94 Est Glomerular Filtrat > 60 Rate mL/min Glucose Level 122 Hemoglobin A1c 5.8 Calcium Level 9.7 Magnesium Level 1.7 Total Bilirubin 1.6 H Direct Bilirubin 0.00 Indirect Bilirubin 1.6 H Aspartate Amino 20 Transf (AST/SGOT) Alanine 18 Aminotransferase (ALT/SG PT) Alkaline Phosphatase 79 Total Protein 7.0 Albumin 4.0 Globulin 3.00 Albumin/Globulin Ratio 1.33 Triglycerides Level 153 H Cholesterol Level 127 LDL Cholesterol, 67 Calculated HDL Cholesterol 29 L Cholesterol/HDL Ratio 4.3 Thyroid Stimulating 2.600 Hormone (TSH) Test 05/01/19 08:14 05/01/19 12:14 Bedside Glucose 126 119 Medications Medication Current Medications Lorazepam (Ativan) 1 mg Q2 PRN IV SEIZURES; Start 04/30/19 at 14:00 Diagnostic Test (Pha) (Accu-Chek) 1 ea 02 XX ; Start 05/01/19 at 02:00 Insulin Glargine (Lantus) 14 units DAILY@2000 SC Last administered on 04/30/19at 20:41; Admin Dose 14 UNITS; Start 04/30/19 at 20:00 Insulin Aspart (Novolog Insulin Pen) NOVOLOG *MILD* ALGORITHM WITH MEALS BEDTIME SC ; Start 04/30/19 at 18:00 IV Flush (NS 3 ml) 3 ml PER PROTOCOL IV ; Start 04/30/19 at 14:00 Ondansetron HCl (Zofran Inj) 4 mg Q6H PRN IV NAUSEA/VOMITING; Start 04/30/19 at 14:00 Acetaminophen (Tylenol Tab) 650 mg Q6H PRN PO .PAIN 1-3 OR TEMP Last administered on 05/01/19at 06:21; Admin Dose 650 MG; Start 04/30/19 at 14:00 Docusate Sodium (Colace) 100 mg Q12H PRN PO .CONSTIPATION; Start 04/30/19 at 14:00 Famotidine (Pepcid) 20 mg Q12 PO Last administered on 05/01/19at 09:04; Admin Dose 20 MG; Start 04/30/19 at 21:00 Citalopram Hydrobromide (Celexa) 10 mg QPM PO Last administered on 04/30/19 22:16; Admin Dose 10 MG; Start 04/30/19 at 21:00 Levetiracetam (Keppra) 500 mg BID PO Last administered on 05/01/19 09:03; Admin Dose 500 MG; Start 04/30/19 at 21:00 Lisinopril (Zestril) 10 mg DAILY PO Last administered on 05/01/19 09:03; Admin Dose 10 MG; Start 05/01/19 at 09:00 Magnesium Oxide (Mag-Ox 400) 400 mg BID PO Last administered on 05/01/19 09:02; Admin Dose 400 MG; Start 04/30/19 at 21:00 Metoprolol Tartrate (Lopressor) 50 mg BID PO Last administered on 05/01/19 09:04; Admin Dose 50 MG; Start 04/30/19 at 21:00 Rivaroxaban (Xarelto) 20 mg WITH DINNER PO Last administered on 04/30/19at 18:36; Admin Dose 20 MG; Start 04/30/19 at 18:00 Miscellaneous Information 1 ea NOTE XX ; Start 04/30/19 at 14:30 Glucose (Glutose) 15 gm Q15M PRN PO DECREASED GLUCOSE; Start 04/30/19 at 14:30 Glucose (Glutose) 22.5 gm Q15M PRN PO DECREASED GLUCOSE; Start 04/30/19 at 14:30 Dextrose (D50w Syringe) 25 ml Q15M PRN IV DECREASED GLUCOSE; Start 04/30/19 at 14:30 Dextrose (D50w Syringe) 50 ml Q15M PRN IV DECREASED GLUCOSE; Start 04/30/19 at 14:30 Glucagon (Glucagen) 1 mg Q15M PRN IM DECREASED GLUCOSE; Start 04/30/19 at 14:30 Glucose (Glutose) 15 gm Q15M PRN BUCCAL DECREASED GLUCOSE; Start 04/30/19 at 14:30 Atorvastatin Calcium (Lipitor) 80 mg QHS PO Last administered on 04/30/19 22:17; Admin Dose 80 MG; Start 04/30/19 at 21:00 Aspirin (Aspirin) 81 mg DAILY PO Last administered on 05/01/19 09:03; Admin Dose 81 MG; Start 05/01/19 at 09:00 Cholecalciferol (Vitamin D) 1,000 unit DAILY PO Last administered on 05/01/19at 09:55; Admin Dose 1,000 UNIT; Start 05/01/19 at 09:00 MARCIAL BRUMFIELD May 01, 2019 14:57
[2019-05-01 15:31] VITALS: BP 116/67; PULSE 73; RESP 19
[2019-05-01] MEDS: RIVAROXABAN 20 MG TABLET PO SCH (17:28)
[2019-05-01 20:17] VITALS: BP 96/62; PULSE 63; RESP 18
[2019-05-01] MEDS: ATORVASTATIN 20 MG TAB PO SCH (20:23)
[2019-05-01] MEDS: CITALOPRAM 20 MG TAB PO SCH (20:24)
[2019-05-01] MEDS: INSULIN GLARGINE [LANTus] (100 UNITS/ML) SYG SC SCH (20:29)
[2019-05-02 00:25] VITALS: BP 101/56; PULSE 63; RESP 18
[2019-05-02] MEDS: ACCU-CHEK XX SCH (02:00)
[2019-05-02 04:30] VITALS: BP 140/65; PULSE 54; RESP 18
--- NOTE | 2019-05-02 06:06 | EEG ---
EEG NOTE Report Details DATE OF TEST: 05/01/19 HISTORY: The patient is a 64-year-old F who presents with shaking spells. This EEG is requested to evaluate for an epileptic disorder. SEDATION: None. CONDITIONS OF RECORDING: This EEG was recorded digitally on the [employer] machine, using the International 10-20 System of electrodes plus anterior temporals and Nz. STATES SAMPLED: Wakefulness and drowsiness. FINDINGS: During wakefulness, there is a 9 Hz posterior dominant rhythm, which attenuates normally with eye opening. There is a normal [id number] frequency-amplitude gradient. The remainder of the awake background is normal. The patient became drowsy but did not pass into sleep. No asymmetries, focal abnormalities or epileptiform discharges were seen. IMPRESSION: Normal electroencephalogram during wakefulness and drowsiness. MARCIAL BRUMFIELD May 02, 2019 06:06
[2019-05-02] MEDS: INSULIN ASPART [NOVOLOG] 3 ML PEN SC SCH ×4 (07:50→21:00)
[2019-05-02 07:53] VITALS: BP 127/67; PULSE 66; RESP 22
[2019-05-02] MEDS: CHOLECALCIFEROL 1,000 UNIT TAB PO SCH (08:20)
[2019-05-02] MEDS: ASPIRIN 81 MG TAB PO SCH (08:21)
[2019-05-02] MEDS: LEVETIRACETAM 500 MG TAB PO SCH ×2 (08:21→21:19)
[2019-05-02] MEDS: FAMOTIDINE 20 MG TAB PO SCH ×2 (08:21→21:20)
[2019-05-02] MEDS: METOPROLOL 50 MG TAB PO SCH ×2 (08:21→21:19)
[2019-05-02] MEDS: LISINOPRIL 10 MG TAB PO SCH (08:21)
[2019-05-02] MEDS: MAGNESIUM OXIDE 400 MG TAB PO SCH ×2 (08:21→21:18)
[2019-05-02] MEDS ORDERED: MAGNESIUM SULFATE 2 GM/50 ML 50 ML IVPB ONE (08:30)
--- NOTE | 2019-05-02 09:21 | PN ---
Date/Time of Note Date/Time of Note DATE: 05/02/19 TIME: 09:18 Assessment/Plan VTE Prophylaxis Risk score (from Ns)>0 risk: 3 SCD applied (from Ns): Yes Pharmacological prophylaxis: rivaroxaban Lines/Catheters IV [facility]from [facility] Saline Lock Assessment/Plan Hospital Course SUBJECTIVE: No acute episodes. OBJECTIVE: Vital signs-see below PHYSICAL EXAM: Constitutional: Adequately built,not in acute distress. HEENT: Head atraumatic and normocephalic. Eyes: Extraocular muscles intact. Anicteric sclerae. Pupils equal bilaterally, reactive to light. NECK: Supple without lymph node. CHEST: Clear and good breath sounds equally. No wheezing. No rhonchi. HEART: S1, S2. Regular rate and rhythm. ABDOMEN: Soft/non tender with no rebound tenderness. Bowel sounds were present. EXTREMITIES: No cyanosis, clubbing or edema. NEUROLOGIC: Alert and oriented x3. No facial droop.Speech clear. Gen weaknessx4 extremities. No sensory deficit.Gait not assessed PSYCHOSOCIAL: No signs of depression. INTEGUMENTARY: No open wounds. ASSESSMENT AND PLAN:64 yo F w/ afib/on ATC, dm2, dlp, vit d deficiency, de pression, debility here w/[id number] tremors and facial asymmetry ... Seizure-like activities vs ??involuntary movements/Tremors. -Most likely culprit severe hypomagnesemia. -No further tremors/seizure-like activities. -MRI unrevealing -Continue home Keppra dose. -PRN Ativan -Seizure precaution -f/u neuro recs Hx CVA -Cont Aspirin/statin prophylaxis -PT eval Acute on chronic hypomagnesemia of unclear etiology -Appreciate nephrology work-up, ruling out for renal magnesium wasting syndrome. -Continue monitoring level and replete as needed. -Cont.mag Oxide 400 bid HTN -stable -cont. home medications Paroxysmal atrial fibrillation -in NSR now -on beta-césar/Xarelto -Keep Mag>2.0,K>4.0 Dyslipidemia -Statin Hx DMII -A1c stable -cont. Basal/bolus insulin -Hold metformin for now -Carb controlled diet Depression -on Celexa Vitamin D deficiency -cont sup Progressive debility -SNF planning DVT prophylaxis: Xarelto PUD prophylaxis: Pepcid Disp: Follow-up nephrology recommendations. Continue monitor magnesium level and replete as needed. Seizure precautions. Case management for SNF placement. Patient was seen in collaboration with Result Diagram: 05/02/19 0539 05/02/19 0539 Results 24hrs Laboratory Tests Test 05/01/19 12:14 05/01/19 17:26 05/01/19 20:26 05/02/19 05:39 Bedside Glucose 119 108 149 White Blood Count 5.7 Red Blood Count 4.33 Hemoglobin 13.0 Hematocrit 39.5 Mean Corpuscular Volume 91.2 Mean Corpuscular 30.0 Hemoglobin Mean Corpuscular 32.9 Hemoglobin Concent Red Cell Distribution 12.8 Width Platelet Count 181 Mean Platelet Volume 10.9 H Immature Granulocytes % 0.200 Neutrophils % 51.3 Lymphocytes % 37.8 Monocytes % 7.9 Eosinophils % 2.1 Basophils % 0.7 Nucleated Red Blood 0.0 Cells % Immature Granulocytes # 0.010 Neutrophils # 2.9 Lymphocytes # 2.2 Monocytes # 0.5 Eosinophils # 0.1 Basophils # 0.0 Nucleated Red Blood 0.0 Cells # Sodium Level 140 Potassium Level 4.4 Chloride Level 105 Carbon Dioxide Level 25 Anion Gap 10 Blood Urea Nitrogen 42 #H Creatinine 1.16 H Est Glomerular Filtrat 47 L Rate mL/min Glucose Level 126 Calcium Level 9.9 Phosphorus Level 4.0 Magnesium Level 1.6 L Test 05/02/19 07:49 Bedside Glucose 133 Exam/Review of Systems Exam Vitals Vital Signs Date Temp Pulse Resp B/P (MAP) Pulse Ox O2 O2 Flow FiO2 Time Delivery Rate 05/02/19 98.0 66 22 127/67 96 Room Air 07:53 (87) Intake and Output 05/01/19 05/01/19 05/02/19 1515:00 23:00 07:00 IntakeIntake Total 480 ml 400 ml OutputOutput Total 1 ml BalanceBalance 479 ml 400 ml Results Results 24hrs Laboratory Tests Test 05/01/19 12:14 05/01/19 17:26 05/01/19 20:26 05/02/19 05:39 Bedside Glucose 119 108 149 White Blood Count 5.7 Red Blood Count 4.33 Hemoglobin 13.0 Hematocrit 39.5 Mean Corpuscular Volume 91.2 Mean Corpuscular 30.0 Hemoglobin Mean Corpuscular 32.9 Hemoglobin Concent Red Cell Distribution 12.8 Width Platelet Count 181 Mean Platelet Volume 10.9 H Immature Granulocytes % 0.200 Neutrophils % 51.3 Lymphocytes % 37.8 Monocytes % 7.9 Eosinophils % 2.1 Basophils % 0.7 Nucleated Red Blood 0.0 Cells % Immature Granulocytes # 0.010 Neutrophils # 2.9 Lymphocytes # 2.2 Monocytes # 0.5 Eosinophils # 0.1 Basophils # 0.0 Nucleated Red Blood 0.0 Cells # Sodium Level 140 Potassium Level 4.4 Chloride Level 105 Carbon Dioxide Level 25 Anion Gap 10 Blood Urea Nitrogen 42 #H Creatinine 1.16 H Est Glomerular Filtrat 47 L Rate mL/min Glucose Level 126 Calcium Level 9.9 Phosphorus Level 4.0 Magnesium Level 1.6 L Test 05/02/19 07:49 Bedside Glucose 133 Medications Medication Current Medications Lorazepam (Ativan) 1 mg Q2 PRN IV SEIZURES; Start 04/30/19 at 14:00 Diagnostic Test (Pha) (Accu-Chek) 1 ea 02 XX ; Start 05/01/19 at 02:00 Insulin Glargine (Lantus) 14 units DAILY@2000 SC Last administered on 05/01/19at 20:29; Admin Dose 14 UNITS; Start 04/30/19 at 20:00 Insulin Aspart (Novolog Insulin Pen) NOVOLOG *MILD* ALGORITHM WITH MEALS BEDTIME SC ; Start 04/30/19 at 18:00 IV Flush (NS 3 ml) 3 ml PER PROTOCOL IV ; Start 04/30/19 at 14:00 Ondansetron HCl (Zofran Inj) 4 mg Q6H PRN IV NAUSEA/VOMITING; Start 04/30/19 at 14:00 Acetaminophen (Tylenol Tab) 650 mg Q6H PRN PO .PAIN 1-3 OR TEMP Last administered on 05/01/19at 06:21; Admin Dose 650 MG; Start 04/30/19 at 14:00 Docusate Sodium (Colace) 100 mg Q12H PRN PO .CONSTIPATION; Start 04/30/19 at 14:00 Famotidine (Pepcid) 20 mg Q12 PO Last administered on 05/02/19at 08:21; Admin Dose 20 MG; Start 04/30/19 at 21:00 Citalopram Hydrobromide (Celexa) 10 mg QPM PO Last administered on 05/01/19 20:24; Admin Dose 10 MG; Start 04/30/19 at 21:00 Levetiracetam (Keppra) 500 mg BID PO Last administered on 05/02/19 08:21; Admin Dose 500 MG; Start 04/30/19 at 21:00 Lisinopril (Zestril) 10 mg DAILY PO Last administered on 05/02/19 08:21; Admin Dose 10 MG; Start 05/01/19 at 09:00 Magnesium Oxide (Mag-Ox 400) 400 mg BID PO Last administered on 05/02/19 08:21; Admin Dose 400 MG; Start 04/30/19 at 21:00 Metoprolol Tartrate (Lopressor) 50 mg BID PO Last administered on 05/02/19 08:21; Admin Dose 50 MG; Start 04/30/19 at 21:00 Rivaroxaban (Xarelto) 20 mg WITH DINNER PO Last administered on 05/01/19 17:28; Admin Dose 20 MG; Start 04/30/19 at 18:00 Miscellaneous Information 1 ea NOTE XX ; Start 04/30/19 at 14:30 Glucose (Glutose) 15 gm Q15M PRN PO DECREASED GLUCOSE; Start 04/30/19 at 14:30 Glucose (Glutose) 22.5 gm Q15M PRN PO DECREASED GLUCOSE; Start 04/30/19 at 14:30 Dextrose (D50w Syringe) 25 ml Q15M PRN IV DECREASED GLUCOSE; Start 04/30/19 at 14:30 Dextrose (D50w Syringe) 50 ml Q15M PRN IV DECREASED GLUCOSE; Start 04/30/19 at 14:30 Glucagon (Glucagen) 1 mg Q15M PRN IM DECREASED GLUCOSE; Start 04/30/19 at 14:30 Glucose (Glutose) 15 gm Q15M PRN BUCCAL DECREASED GLUCOSE; Start 04/30/19 at 14:30 Atorvastatin Calcium (Lipitor) 80 mg QHS PO Last administered on 05/01/19 20:23; Admin Dose 80 MG; Start 04/30/19 at 21:00 Aspirin (Aspirin) 81 mg DAILY PO Last administered on 05/02/19 08:21; Admin Dose 81 MG; Start 05/01/19 at 09:00 Cholecalciferol (Vitamin D) 1,000 unit DAILY PO Last administered on 05/02/19at 08:20; Admin Dose 1,000 UNIT; Start 05/01/19 at 09:00 Magnesium Sulfate 50 ml @ 25 mls/hr ONCE ONCE IVPB Last administered on 05/02/19at 08:28; Admin Dose 25 MLS/HR; Start 05/02/19 at 08:30; Stop 05/02/19 at 10:29 TERA TARANGO NP May 02, 2019 09:21
--- NOTE | 2019-05-02 10:19 | CONS ---
Assessment/Plan Assessment/Plan Assessment/Plan (Recall) 64 F c/ afib, reported epilepsy, cerebrovascular disease and multiple other comorbidities, who presents for evaluation of recurrent spells concerning for seizures.. A typical spell was witnessed by me in the ER, and appeared to be nonphysiologic.. That said, she could legitimately have underlying epilepsy with superimposed pseudoseizures.. Head CT is unrevealing. EEG is normal P: OK to continue Keppra per ops for now Ativan iv prn prolonged seizure (> 5 min) OK to continue Xarelto for secondary stroke prevention PT/OT/ST as necessary Other management and supportive care per primary Will sign off for now; please call w/ adnl ?s Consultation Date/Type/Reason Admit Date/Time Apr 30, 2019 at 10:20 Type of Consult Neurology Reason for Consultation seizure Requesting Provider: TERA TARANGO NP Date/Time of Note DATE: 05/02/19 TIME: 10:18 24 HR Interval Summary Free Text/Dictation s.p EEG Exam/Review of Systems Exam Vitals Vital Signs Date Temp Pulse Resp B/P (MAP) Pulse Ox O2 O2 Flow FiO2 Time Delivery Rate 05/02/19 98.0 66 22 127/67 96 Room Air 07:53 (87) Intake and Output 05/01/19 05/01/19 05/02/19 1515:00 23:00 07:00 IntakeIntake Total 480 ml 400 ml OutputOutput Total 1 ml BalanceBalance 479 ml 400 ml Results Result Diagram: 05/02/19 0539 05/02/19 0539 Results 24hrs Laboratory Tests Test 05/01/19 12:14 05/01/19 17:26 05/01/19 20:26 05/02/19 05:39 Bedside Glucose 119 108 149 White Blood Count 5.7 Red Blood Count 4.33 Hemoglobin 13.0 Hematocrit 39.5 Mean Corpuscular Volume 91.2 Mean Corpuscular 30.0 Hemoglobin Mean Corpuscular 32.9 Hemoglobin Concent Red Cell Distribution 12.8 Width Platelet Count 181 Mean Platelet Volume 10.9 H Immature Granulocytes % 0.200 Neutrophils % 51.3 Lymphocytes % 37.8 Monocytes % 7.9 Eosinophils % 2.1 Basophils % 0.7 Nucleated Red Blood 0.0 Cells % Immature Granulocytes # 0.010 Neutrophils # 2.9 Lymphocytes # 2.2 Monocytes # 0.5 Eosinophils # 0.1 Basophils # 0.0 Nucleated Red Blood 0.0 Cells # Sodium Level 140 Potassium Level 4.4 Chloride Level 105 Carbon Dioxide Level 25 Anion Gap 10 Blood Urea Nitrogen 42 #H Creatinine 1.16 H Est Glomerular Filtrat 47 L Rate mL/min Glucose Level 126 Calcium Level 9.9 Phosphorus Level 4.0 Magnesium Level 1.6 L Test 05/02/19 07:49 Bedside Glucose 133 Medications Medication Current Medications Lorazepam (Ativan) 1 mg Q2 PRN IV SEIZURES; Start 04/30/19 at 14:00 Diagnostic Test (Pha) (Accu-Chek) 1 ea 02 XX ; Start 05/01/19 at 02:00 Insulin Glargine (Lantus) 14 units DAILY@2000 SC Last administered on 05/01/19at 20:29; Admin Dose 14 UNITS; Start 04/30/19 at 20:00 Insulin Aspart (Novolog Insulin Pen) NOVOLOG *MILD* ALGORITHM WITH MEALS BEDTIME SC ; Start 04/30/19 at 18:00 IV Flush (NS 3 ml) 3 ml PER PROTOCOL IV ; Start 04/30/19 at 14:00 Ondansetron HCl (Zofran Inj) 4 mg Q6H PRN IV NAUSEA/VOMITING; Start 04/30/19 at 14:00 Acetaminophen (Tylenol Tab) 650 mg Q6H PRN PO .PAIN 1-3 OR TEMP Last administered on 05/01/19at 06:21; Admin Dose 650 MG; Start 04/30/19 at 14:00 Docusate Sodium (Colace) 100 mg Q12H PRN PO .CONSTIPATION; Start 04/30/19 at 14:00 Famotidine (Pepcid) 20 mg Q12 PO Last administered on 05/02/19at 08:21; Admin Dose 20 MG; Start 04/30/19 at 21:00 Citalopram Hydrobromide (Celexa) 10 mg QPM PO Last administered on 05/01/19at 20:24; Admin Dose 10 MG; Start 04/30/19 at 21:00 Levetiracetam (Keppra) 500 mg BID PO Last administered on 05/02/19 08:21; Admin Dose 500 MG; Start 04/30/19 at 21:00 Lisinopril (Zestril) 10 mg DAILY PO Last administered on 05/02/19 08:21; Admin Dose 10 MG; Start 05/01/19 at 09:00 Magnesium Oxide (Mag-Ox 400) 400 mg BID PO Last administered on 05/02/19 08:21; Admin Dose 400 MG; Start 04/30/19 at 21:00 Metoprolol Tartrate (Lopressor) 50 mg BID PO Last administered on 05/02/19 08:21; Admin Dose 50 MG; Start 04/30/19 at 21:00 Rivaroxaban (Xarelto) 20 mg WITH DINNER PO Last administered on 05/01/19 17:28; Admin Dose 20 MG; Start 04/30/19 at 18:00 Miscellaneous Information 1 ea NOTE XX ; Start 04/30/19 at 14:30 Glucose (Glutose) 15 gm Q15M PRN PO DECREASED GLUCOSE; Start 04/30/19 at 14:30 Glucose (Glutose) 22.5 gm Q15M PRN PO DECREASED GLUCOSE; Start 04/30/19 at 14:30 Dextrose (D50w Syringe) 25 ml Q15M PRN IV DECREASED GLUCOSE; Start 04/30/19 at 14:30 Dextrose (D50w Syringe) 50 ml Q15M PRN IV DECREASED GLUCOSE; Start 04/30/19 at 14:30 Glucagon (Glucagen) 1 mg Q15M PRN IM DECREASED GLUCOSE; Start 04/30/19 at 14:30 Glucose (Glutose) 15 gm Q15M PRN BUCCAL DECREASED GLUCOSE; Start 04/30/19 at 14:30 Atorvastatin Calcium (Lipitor) 80 mg QHS PO Last administered on 05/01/19at 20:23; Admin Dose 80 MG; Start 04/30/19 at 21:00 Aspirin (Aspirin) 81 mg DAILY PO Last administered on 05/02/19 08:21; Admin Dose 81 MG; Start 05/01/19 at 09:00 Cholecalciferol (Vitamin D) 1,000 unit DAILY PO Last administered on 05/02/19 08:20; Admin Dose 1,000 UNIT; Start 05/01/19 at 09:00 Magnesium Sulfate 50 ml @ 25 mls/hr ONCE ONCE IVPB Last administered on 05/02/19at 08:28; Admin Dose 25 MLS/HR; Start 05/02/19 at 08:30; Stop 05/02/19 at 10:29 Ciprofloxacin (Cipro) 500 mg BID@06,18 PO ; Start 05/02/19 at 10:00 MARCIAL BRUMFIELD May 02, 2019 10:19
--- NOTE | 2019-05-02 10:35 | PN ---
DATE: 05/02/2019 SUBJECTIVE: The patient is stable. No events overnight. OBJECTIVE: VITAL SIGNS: Blood pressure is 127/67, pulse 66, respirations 22, temperature 98.0. HEENT: Head is normocephalic. NECK: Supple. HEART: Regular rate. LUNGS: Show diminished breath sounds at the base. ABDOMEN: Soft, nontender to palpation without rebound or guarding. EXTREMITIES: Negative for clubbing, cyanosis, no edema. DERMATOLOGIC: No rashes. MUSCULOSKELETAL: No joint effusion. NEUROLOGIC: No change in exam. MEDICATIONS: The patient's medications have been reviewed. LABORATORY DATA: The laboratory data has been reviewed. IMAGING STUDIES: The imaging studies have been reviewed. ASSESSMENT AND PLAN: 1. Hypomagnesemia, etiology is unclear, concerning for possible renal magnesium wasting syndrome. T he patient does not meet the clinical picture for Bartter's or Gitelman syndrome. Nevertheless, the patient has a recent history of persistent hypomagnesemia despite adequate magnesium replacement and a family history of renal magnesium wasting. The patient's workup is ongoing and a fractional secret ion magnesium is pending. Continue to monitor. Continue magnesium supplementation. 2. Seizure disorder. Continue antiepileptic medications. Follow up with neurology. 3. Hypertension. Continue current blood pressure regimen. 4. Afib. Continue medical management. 5. Dyslipidemia. Continue statin therapy. 6. Diabetes. Continue current insulin regimen. 7. Vitamin D deficiency. Dictated By: JACQUE SCRUGGS/NTS Conf#: [id number] DID#: [id number] CC: BRODIE ROE MD;*End*
[2019-05-02] MEDS: CIPROFLOXACIN 500 MG TAB PO SCH ×2 (11:30→17:38)
[2019-05-02 11:54] VITALS: BP 120/64; PULSE 54; RESP 22
--- NOTE | 2019-05-02 15:19 | PSY ---
Date/Time of Note Date/Time of Note DATE: 05/02/19 TIME: 15:17 Psychiatric Subjective Eval Consent Pt consented to telemedicine: No Subjective Evaluation Patient location: inpatient Chief Complaint: witessed seizure last night & this morning; right arm pain; SOB ; dizziness History of present illness Patient is a 64-year-old female with a history of CVA, vertebral artery occlusions, diabetes, hypertension, vitamin D deficiency, hypomagnesemia, and seizure, admitted for right facial droop and aphasia. [id number] evaluation, patient is tearful, states she is scared and depressed because she is being sent to a assisted. 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 Explained to patient she is only going for short time, patient thinks she is being treated to go to assisted which is the basis for her depression. She denies suicidal ideation and contracted for safety. Past psychiatric history Patient is recently diagnosed with depression and started medication about a month ago Hospitalization: other Medical history Problems Medical Problems: (1) Acute dehydration Status: Acute (2) Anxiousness Status: Acute (3) Aphasia Status: Acute (4) Atrial fibrillation with RVR Status: Acute (5) Breakthrough seizure Status: Acute (6) Dehydration Status: Acute (7) Elevated BUN Status: Acute (8) Encounter for wound re-check Status: Acute (9) Encounter for wound re-check Status: Acute (10) Hypomagnesemia Status: Acute (11) Lightheadedness Status: Acute (12) Paronychia Status: Acute (13) Paronychia Status: Acute (14) Paronychia Status: Acute (15) TIA (transient ischemic attack) Status: Acute (16) TIA (transient ischemic attack) Status: Acute (17) Visit for wound check Status: Acute Allergies: Coded Allergies: codeine (Unverified Allergy, Unknown, 04/30/19) Substance Abuse Substance abuse history: No Prior substance abuse treatmen: No Social History Marital status: other DPA/Conservatorship: No Psychiatric Objective Eval Review of Systems: Review of Systems: Not Applicable Physical Examination: Sleep: Adequate Energy: Decreased Interest: Decreased Mental Status Examination: Eye Contact: Poor Behavior: Cooperative Speech: Soft AFFECT: Flat Mood: Depressed Though Process: Linear Thought Content: Normal Orientation: x4 Insight: Intact Judgement: Intact Attention Span: Distractible Laboratory Results Laboratory Tests Test 04/30/19 18:48 04/30/19 20:34 04/30/19 21:56 05/01/19 05:21 Bedside Glucose 100 mg/dL 133 mg/dL 117 mg/dL White Blood Count 5.5 10^3/ul Red Blood Count 4.35 10^6/ul Hemoglobin 13.4 g/dl Hematocrit 39.5 % Mean Corpuscular 90.8 fl Volume Mean Corpuscular 30.8 pg Hemoglobin Mean Corpuscular 33.9 g/dl Hemoglobin Concent Red Cell 12.9 % Distribution Width Platelet Count 184 10^3/UL Mean Platelet Volume 10.6 fl Immature 0.200 % Granulocytes % Neutrophils % 58.9 % Lymphocytes % 29.5 % Monocytes % 9.1 % Eosinophils % 1.8 % Basophils % 0.5 % Nucleated Red Blood 0.0 /100WBC Cells % Immature 0.010 10^3/ul Granulocytes # Neutrophils # 3.3 10^3/ul Lymphocytes # 1.6 10^3/ul Monocytes # 0.5 10^3/ul Eosinophils # 0.1 10^3/ul Basophils # 0.0 10^3/ul Nucleated Red Blood 0.0 10^3/ul Cells # Sodium Level 140 mmol/L Potassium Level 4.4 mmol/L Chloride Level 104 mmol/L Carbon Dioxide Level 27 mmol/L Anion Gap 9 Blood Urea Nitrogen 26 mg/dl Creatinine 0.94 mg/dl Est Glomerular > 60 mL/min Filtrat Rate mL/min Glucose Level 122 mg/dl Hemoglobin A1c 5.8 % Calcium Level 9.7 mg/dl Magnesium Level 1.7 mg/dl Total Bilirubin 1.6 mg/dl Direct Bilirubin 0.00 mg/dl Indirect Bilirubin 1.6 mg/dl Aspartate Amino 20 IU/L Transf (AST/SGOT) Alanine 18 IU/L Aminotransferase (AL T/SGPT) Alkaline Phosphatase 79 IU/L Total Protein 7.0 g/dl Albumin 4.0 g/dl Globulin 3.00 g/dl Albumin/Globulin 1.33 Ratio Triglycerides Level 153 mg/dl Cholesterol Level 127 mg/dl LDL Cholesterol, 67 mg/dl Calculated HDL Cholesterol 29 mg/dl Cholesterol/HDL 4.3 RATIO Ratio Thyroid Stimulating 2.600 MIU/L Hormone (TSH) Test 05/01/19 08:14 05/01/19 12:14 05/01/19 17:26 05/01/19 20:26 Bedside Glucose 126 mg/dL 119 mg/dL 108 mg/dL 149 mg/dL Test 05/02/19 05:39 05/02/19 07:49 05/02/19 11:27 White Blood Count 5.7 10^3/ul Red Blood Count 4.33 10^6/ul Hemoglobin 13.0 g/dl Hematocrit 39.5 % Mean Corpuscular 91.2 fl Volume Mean Corpuscular 30.0 pg Hemoglobin Mean Corpuscular 32.9 g/dl Hemoglobin Concent Red Cell 12.8 % Distribution Width Platelet Count 181 10^3/UL Mean Platelet Volume 10.9 fl Immature 0.200 % Granulocytes % Neutrophils % 51.3 % Lymphocytes % 37.8 % Monocytes % 7.9 % Eosinophils % 2.1 % Basophils % 0.7 % Nucleated Red Blood 0.0 /100WBC Cells % Immature 0.010 10^3/ul Granulocytes # Neutrophils # 2.9 10^3/ul Lymphocytes # 2.2 10^3/ul Monocytes # 0.5 10^3/ul Eosinophils # 0.1 10^3/ul Basophils # 0.0 10^3/ul Nucleated Red Blood 0.0 10^3/ul Cells # Sodium Level 140 mmol/L Potassium Level 4.4 mmol/L Chloride Level 105 mmol/L Carbon Dioxide Level 25 mmol/L Anion Gap 10 Blood Urea Nitrogen 42 mg/dl Creatinine 1.16 mg/dl Est Glomerular 47 mL/min Filtrat Rate mL/min Glucose Level 126 mg/dl Calcium Level 9.9 mg/dl Phosphorus Level 4.0 mg/dl Magnesium Level 1.6 mg/dl Bedside Glucose 133 mg/dL 106 mg/dL Assessment and Plan Assessment/Diagnosis Diagnosis Major depressive disorder severe recurrent without psychosis Recommendation/Plan Medication Management Celexa 20 mg daily Multiple antipsychotics: No Psychotherapy Provide supportive therapy Discharge Disposition: Other Legal Status: Voluntary (Does not meet criteria for 5150 hold) BRIDGER JIMENEZ NP May 02, 2019 15:19
[2019-05-02 16:13] VITALS: BP 133/67; PULSE 57; RESP 22
[2019-05-02] MEDS: RIVAROXABAN 20 MG TABLET PO SCH (17:38)
[2019-05-02 20:32] VITALS: BP 111/63; PULSE 64; RESP 18
[2019-05-02] MEDS: ATORVASTATIN 20 MG TAB PO SCH (21:19)
[2019-05-02] MEDS: CITALOPRAM 20 MG TAB PO SCH (21:20)
[2019-05-02] MEDS: INSULIN GLARGINE [LANTus] (100 UNITS/ML) SYG SC SCH (21:41)
[2019-05-03] VITALS (7 sets, daily range): BP systolic 101–140; BP diastolic 56–69; PULSE 53–65; RESP 16–22
[2019-05-03] MEDS: ACCU-CHEK XX SCH (02:00)
[2019-05-03] MEDS: CIPROFLOXACIN 500 MG TAB PO SCH ×2 (06:00→17:43)
[2019-05-03] MEDS: INSULIN ASPART [NOVOLOG] 3 ML PEN SC SCH ×4 (07:41→21:00)
--- NOTE | 2019-05-03 08:02 | PN ---
DATE: 05/03/2019 SUBJECTIVE: The patient is stable. No events overnight. OBJECTIVE: VITAL SIGNS: Blood pressure is 136/65, respirations 19, pulse 83, temperature 98.1. HEENT: Head is normocephalic. NECK: Supple. HEART: Regular rate. LUNGS: Show diminished breath sounds at the base. ABDOMEN: Soft, nontender to palpation without rebound or guarding. EXTREMITIES: Negative for clubbing, cyanosis, no edema. DERMATOLOGIC: No rashes. MUSCULOSKELETAL: No joint effusions. NEUROLOGIC: No change in exam. MEDICATIONS: Have been reviewed. LABORATORY DATA: Has been reviewed. IMAGING STUDIES: Have been reviewed. ASSESSMENT AND PLAN: 1. Hypomagnesemia. Etiology is unclear, concerning for possible renal magnesium wasting syndrome. The patient does not meet clinical criteria for Bartter's or Gitelman syndrome. Nevertheless, the grace pereira has recent history of persistent hypomagnesemia despite adequate magnesium replacement, and a f amily history of hypomagnesemia. The patient's workup is ongoing. A fractional excretion of magnesi um is pending. Magnesium levels have improved with supplementation. Will continue to monitor and re plete. 2. Seizure disorder. Continue current medical management. Follow up with neurology. 3. Hypertension. Continue current blood pressure regimen. 4. Atrial fibrillation. Continue medical management. 5. Dyslipidemia. Continue statin therapy. 6. Diabetes. Continue current insulin regimen. 7. Vitamin D deficiency. Dictated By: JACQUE SCRUGGS/NTS Conf#: [id number] DID#: [id number] CC: BRODIE ROE MD;*End*
[2019-05-03] MEDS: ASPIRIN 81 MG TAB PO SCH (08:56)
[2019-05-03] MEDS: LEVETIRACETAM 500 MG TAB PO SCH ×2 (08:56→21:02)
[2019-05-03] MEDS: LISINOPRIL 10 MG TAB PO SCH (08:56)
[2019-05-03] MEDS: MAGNESIUM OXIDE 400 MG TAB PO SCH ×2 (08:56→21:02)
[2019-05-03] MEDS: FAMOTIDINE 20 MG TAB PO SCH ×2 (08:56→21:03)
[2019-05-03] MEDS: CHOLECALCIFEROL 1,000 UNIT TAB PO SCH (08:56)
--- NOTE | 2019-05-03 09:22 | PN ---
Date/Time of Note Date/Time of Note DATE: 05/03/19 TIME: 09:20 Assessment/Plan VTE Prophylaxis Risk score (from Ns)>0 risk: 3 SCD applied (from Ns): Yes Pharmacological prophylaxis: rivaroxaban Lines/Catheters IV [facility]ter [facility] Saline Lock Assessment/Plan Hospital Course SUBJECTIVE: No acute episodes. OBJECTIVE: Vital signs-see below PHYSICAL EXAM: Constitutional: Adequately built,not in acute distress. HEENT: Head atraumatic and normocephalic. Eyes: Extraocular muscles intact. Anicteric sclerae. Pupils equal bilaterally, reactive to light. NECK: Supple without lymph node. CHEST: Clear and good breath sounds equally. No wheezing. No rhonchi. HEART: S1, S2. Regular rate and rhythm. ABDOMEN: Soft/non tender with no rebound tenderness. Bowel sounds were present. EXTREMITIES: No cyanosis, clubbing or edema. NEUROLOGIC: Alert and oriented x3. No facial droop.Speech clear. Gen weaknessx4 extremities. No sensory deficit.Gait not assessed PSYCHOSOCIAL: No signs of depression. INTEGUMENTARY: No open wounds. ASSESSMENT AND PLAN:64 yo F w/ afib/on ATC, dm2, dlp, vit d deficiency, de pression, debility here w/seizure-like tremors and facial asymmetry ... Seizure-like activities vs ??involuntary movements/Tremors. -Most likely culprit severe hypomagnesemia. -No further tremors/seizure-like activities. -MRI /EEG unrevealing -Continue home Keppra dose. -PRN Ativan -Seizure precaution -f/u neuro recs Hx CVA -Cont Aspirin/statin prophylaxis -PT eval Acute on chronic hypomagnesemia of unclear etiology -Appreciate nephrology work-up, ruling out for renal magnesium wasting syndrome. -Continue monitoring level and replete as needed. -Cont.mag Oxide 400 bid HTN -stable -cont. home medications Paroxysmal atrial fibrillation -in NSR now -on beta-césar/Xarelto -Keep Mag>2.0,K>4.0 Dyslipidemia -Statin Hx DMII -A1c stable -cont. Basal/bolus insulin -Hold metformin for now -Carb controlled diet Depression -on Celexa Vitamin D deficiency -cont sup Progressive debility -SNF planning DVT prophylaxis: Xarelto PUD prophylaxis: Pepcid Disp: Follow-up nephrology recommendations. Continue monitor magnesium level and replete as needed. Seizure precautions. Case management for SNF placement. Patient was seen in collaboration with Result Diagram: 05/02/19 0539 05/03/19 0535 Results 24hrs Laboratory Tests Test 05/02/19 11:27 05/02/19 17:37 05/02/19 21:24 05/03/19 01:54 Bedside Glucose 106 108 105 123 Test 05/03/19 05:35 05/03/19 07:41 Sodium Level 137 Potassium Level 4.6 Chloride Level 103 Carbon Dioxide Level 29 Anion Gap 5 Blood Urea Nitrogen 36 H Creatinine 1.00 Est Glomerular Filtrat 56 L Rate mL/min Glucose Level 120 Calcium Level 10.0 Magnesium Level 1.7 Bedside Glucose 134 Exam/Review of Systems Exam Vitals Vital Signs Date Temp Pulse Resp B/P (MAP) Pulse Ox O2 O2 Flow FiO2 Time Delivery Rate 05/03/19 98.0 64 22 137/60 96 Room Air 07:52 (85) Intake and Output 05/02/19 05/02/19 05/03/19 1515:00 23:00 07:00 IntakeIntake Total 350 ml 700 ml BalanceBalance 350 ml 700 ml Results Results 24hrs Laboratory Tests Test 05/02/19 11:27 05/02/19 17:37 05/02/19 21:24 05/03/19 01:54 Bedside Glucose 106 108 105 123 Test 05/03/19 05:35 05/03/19 07:41 Sodium Level 137 Potassium Level 4.6 Chloride Level 103 Carbon Dioxide Level 29 Anion Gap 5 Blood Urea Nitrogen 36 H Creatinine 1.00 Est Glomerular Filtrat 56 L Rate mL/min Glucose Level 120 Calcium Level 10.0 Magnesium Level 1.7 Bedside Glucose 134 Medications Medication Current Medications Lorazepam (Ativan) 1 mg Q2 PRN IV SEIZURES Last administered on 05/02/19at 20:40; Admin Dose 1 MG; Start 04/30/19 at 14:00 Diagnostic Test (Pha) (Accu-Chek) 1 ea 02 XX ; Start 05/01/19 at 02:00 Insulin Glargine (Lantus) 14 units DAILY@1999 SC Last administered on 05/02/19at 21:41; Admin Dose 14 UNITS; Start 04/30/19 at 20:00 Insulin Aspart (Novolog Insulin Pen) NOVOLOG *MILD* ALGORITHM WITH MEALS BEDTIME SC ; Start 04/30/19 at 18:00 IV Flush (NS 3 ml) 3 ml PER PROTOCOL IV ; Start 04/30/19 at 14:00 Ondansetron HCl (Zofran Inj) 4 mg Q6H PRN IV NAUSEA/VOMITING; Start 04/30/19 at 14:00 Acetaminophen (Tylenol Tab) 650 mg Q6H PRN PO .PAIN 1-3 OR TEMP Last administered on 05/01/19 06:21; Admin Dose 650 MG; Start 04/30/19 at 14:00 Docusate Sodium (Colace) 100 mg Q12H PRN PO .CONSTIPATION; Start 04/30/19 at 14:00 Famotidine (Pepcid) 20 mg Q12 PO Last administered on 05/03/19 08:56; Admin Dose 20 MG; Start 04/30/19 at 21:00 Levetiracetam (Keppra) 500 mg BID PO Last administered on 05/03/19 08:56; Admin Dose 500 MG; Start 04/30/19 at 21:00 Lisinopril (Zestril) 10 mg DAILY PO Last administered on 05/03/19 08:56; Admin Dose 10 MG; Start 05/01/19 at 09:00 Magnesium Oxide (Mag-Ox 400) 400 mg BID PO Last administered on 05/03/19 08:56; Admin Dose 400 MG; Start 04/30/19 at 21:00 Metoprolol Tartrate (Lopressor) 50 mg BID PO Last administered on 05/02/19 21:19; Admin Dose 50 MG; Start 04/30/19 at 21:00 Rivaroxaban (Xarelto) 20 mg WITH DINNER PO Last administered on 05/02/19at 17:38; Admin Dose 20 MG; Start 04/30/19 at 18:00 Miscellaneous Information 1 ea NOTE XX ; Start 04/30/19 at 14:30 Glucose (Glutose) 15 gm Q15M PRN PO DECREASED GLUCOSE; Start 04/30/19 at 14:30 Glucose (Glutose) 22.5 gm Q15M PRN PO DECREASED GLUCOSE; Start 04/30/19 at 14:30 Dextrose (D50w Syringe) 25 ml Q15M PRN IV DECREASED GLUCOSE; Start 04/30/19 at 14:30 Dextrose (D50w Syringe) 50 ml Q15M PRN IV DECREASED GLUCOSE; Start 04/30/19 at 14:30 Glucagon (Glucagen) 1 mg Q15M PRN IM DECREASED GLUCOSE; Start 04/30/19 at 14:30 Glucose (Glutose) 15 gm Q15M PRN BUCCAL DECREASED GLUCOSE; Start 04/30/19 at 14:30 Atorvastatin Calcium (Lipitor) 80 mg QHS PO Last administered on 05/02/19 21:19; Admin Dose 80 MG; Start 04/30/19 at 21:00 Aspirin (Aspirin) 81 mg DAILY PO Last administered on 05/03/19 08:56; Admin Dose 81 MG; Start 05/01/19 at 09:00 Cholecalciferol (Vitamin D) 1,000 unit DAILY PO Last administered on 05/03/19 08:56; Admin Dose 1,000 UNIT; Start 05/01/19 at 09:00 Ciprofloxacin (Cipro) 500 mg BID@18 PO Last administered on 05/03/19at 06:00; Admin Dose 500 MG; Start 05/02/19 at 10:00 Citalopram Hydrobromide (Celexa) 20 mg QPM PO Last administered on 05/02/19 21:20; Admin Dose 20 MG; Start 05/02/19 at 21:00 TERA TARANGO NP May 03, 2019 09:22
[2019-05-03] MEDS: METOPROLOL 50 MG TAB PO SCH ×2 (13:03→21:02)
[2019-05-03] MEDS: RIVAROXABAN 20 MG TABLET PO SCH (17:43)
[2019-05-03] MEDS: INSULIN GLARGINE [LANTus] (100 UNITS/ML) SYG SC SCH (20:00)
[2019-05-03] MEDS: CITALOPRAM 20 MG TAB PO SCH (21:02)
[2019-05-03] MEDS: ATORVASTATIN 20 MG TAB PO SCH (21:02)
[2019-05-04] MEDS: ACCU-CHEK XX SCH (02:00)
[2019-05-04 03:36] VITALS: BP 115/54; PULSE 50; RESP 18
[2019-05-04] MEDS: CIPROFLOXACIN 500 MG TAB PO SCH ×2 (07:16→17:16)
[2019-05-04 07:24] VITALS: BP 150/70; PULSE 51; RESP 18
[2019-05-04] MEDS: INSULIN ASPART [NOVOLOG] 3 ML PEN SC SCH ×4 (07:54→21:00)
[2019-05-04] MEDS: CHOLECALCIFEROL 1,000 UNIT TAB PO SCH (08:21)
[2019-05-04] MEDS: LISINOPRIL 10 MG TAB PO SCH (08:21)
[2019-05-04] MEDS: LEVETIRACETAM 500 MG TAB PO SCH ×2 (08:21→21:22)
[2019-05-04] MEDS: FAMOTIDINE 20 MG TAB PO SCH ×2 (08:21→21:21)
[2019-05-04] MEDS: MAGNESIUM OXIDE 400 MG TAB PO SCH ×2 (08:21→21:20)
[2019-05-04] MEDS: ASPIRIN 81 MG TAB PO SCH (08:21)
[2019-05-04] MEDS: METOPROLOL 50 MG TAB PO SCH ×3 (08:23→21:00)
[2019-05-04] MEDS ORDERED: MAGNESIUM SULFATE 2 GM/50 ML 50 ML IVPB ONE (08:30)
--- NOTE | 2019-05-04 09:38 | PN ---
DATE: 05/04/2019 SUBJECTIVE: The patient is stable. No events overnight. OBJECTIVE: VITAL SIGNS: Blood pressure is 150/70, pulse 51, respiration 18, temperature 97.7. HEENT: Head is normocephalic. NECK: Supple. HEART: Regular rate. LUNGS: Show diminished breath sounds at the base. ABDOMEN: Soft, nontender to palpation without rebound or guarding. EXTREMITIES: Negative for clubbing, cyanosis, no edema. DERMATOLOGIC: No rashes. MUSCULOSKELETAL: No joint effusion. NEUROLOGIC: No change in exam. MEDICATIONS: Has been reviewed. LABORATORY DATA: Has been reviewed. IMAGING STUDIES: Have been reviewed. ASSESSMENT AND PLAN: 1. Hypomagnesemia. 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 The patie nt does not meet clinical criteria for . Nevertheless, the patient has a history of persistent hypomagnesemia despite adequate magnesium replacement and a recent family history of hypomagnesemia. The patient's workup is ongoing. A fractional excretion of magnesium is pending. We will continue current medical management. Continue magnesium supplementation. Continue magnesium sulfate as neede d. 2. Seizure disorder. Continue medical management. Follow up with neurology. 3. Hypertension. Continue current blood pressure regimen. 4. Atrial fibrillation. Continue current medical management. 5. Systemic therapy. 6. Diabetes. Continue current insulin regimen. 7. Vitamin D deficiency. Continue to monitor. 8. Urinary tract infection. Continue current antibiotic regimen. Dictated By: JACQUE RAMIREZ DO NR/TIAN Conf#: [id number] DID#: [id number]
[2019-05-04] MEDS: ACETAMINOPHEN 325 MG TAB PO PRN ×2 (10:25→16:46)
--- NOTE | 2019-05-04 10:56 | PN ---
Date/Time of Note Date/Time of Note DATE: 05/04/19 TIME: 10:52 Assessment/Plan VTE Prophylaxis Risk score (from Ns)>0 risk: 2 SCD applied (from Ns): No SCD contraindicated: other Pharmacological prophylaxis: rivaroxaban Lines/Catheters IV Catheter Type (from [facility]): [place] Assessment/Plan Hospital Course SUBJECTIVE: RN called stating that the patient had another episode of involuntary movements. OBJECTIVE: Physical Exam General: Adequately build 64 year-old female lying in bed in no apparent distress. HEENT: Normocephalic, atraumatic. Eyes: Anicteric sclerae, conjunctivae clear. ENT: Nasal septum midline, oral mucosa moist. Neck supple, no JVD noticed. Respiratory: Bilaterally diminished breath sounds. No use of accessory muscles of respiration. No adventitious breath sounds. Cardiovascular: S1, S2 heard. Regular rate and rhythm. Abdomen: Soft, nontender, and nondistended. Bowel sounds positive in all 4 quadrants. Genitourinary: Deferred. Extremities: No cyanosis, no clubbing, no edema. Peripheral pulses palpable. Neurologic: Awake and alert. Follows simple commands. Moves all 4 extremities. Affect: Flat. Skin: Normal skin turgor. No skin rashes. Labs & Vitals per chart ASSESSMENT & PLAN 64-year-old female with a past medical history of CVA, vertebral artery occlusions, diabetes mellitus, hypertension, vitamin D deficiency, chronic hypomagnesemia of unknown etiology, depression, and seizure disorder who prese nted to the emergency room with reported seizure episodes with right-sided facial droop and aphasia starting the prior day of admission, who was admitted to inpatient setting for further treatment and evaluation. 1. Seizure-like activity Vs involuntary movement/tremors. Most probably secondary to underlying hypomagnesemia. MRI/EEG unrevealing. Continue home Keppra. PRN Ativan. Continue to follow neurology recommendations. 2. History of CVA. Continue Xarelto and statins. 3. Paroxysmal atrial fibrillation. Currently in sinus rhythm. On Xarelto for stroke prophylaxis. 4. Acute on chronic hypomagnesemia of unclear etiology. 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 Continue scheduled magnesium. Replete as needed. 5. Dyslipidemia. Continue statins. 6. Diabetes mellitus type 2. Hemoglobin A1c 5.8. Continue sliding scale insulin along with basal insulin. 7. Major depressive disorder. Continue Celexa. 8. Vitamin D deficiency. Continue vitamin D supplements. 9. Hypertension. Continue SUPRIYA inhibitors. 10. Urinary tract infection. Culture showing E. coli with colony count of 10,000 to 20,000. On antimicrobials, provided the patient has seizure-like activities to rule out any precipitating cause. 11. Fluids, electrolytes, and nutrition. Carbohydrate controlled diet. 12. DVT prophylaxis. On Xarelto. 13. Plan. Replete magnesium. Follow neurology and nephrology recommendations. Discharge plan is to discharge the patient to senior living facility once the patient is free of seizure like episodes for at least 24 hours. The patient was seen in collaboration with Dr. Grissom. Result Diagram: 05/02/19 0539 05/03/19 0535 Results 24hrs Laboratory Tests Test 05/03/19 11:38 05/03/19 17:30 05/03/19 20:21 05/04/19 03:30 Bedside Glucose 111 124 141 118 Test 05/04/19 05:27 05/04/19 07:53 05/04/19 09:31 05/04/19 09:50 Magnesium Level 1.6 L Bedside Glucose 105 167 Lab Scanned Report REFERENCE LAB Exam/Review of Systems Exam Vitals Vital Signs Date Temp Pulse Resp B/P (MAP) Pulse Ox O2 O2 Flow FiO2 Time Delivery Rate 05/04/19 97.7 51 18 150/70 99 Room Air 07:24 (96) Intake and Output 05/03/19 05/03/19 05/04/19 1515:00 23:00 07:00 IntakeIntake Total 780 ml BalanceBalance 780 ml Results Results 24hrs Laboratory Tests Test 05/03/19 11:38 05/03/19 17:30 05/03/19 20:21 05/04/19 03:30 Bedside Glucose 111 124 141 118 Test 05/04/19 05:27 05/04/19 07:53 05/04/19 09:31 05/04/19 09:50 Magnesium Level 1.6 L Bedside Glucose 105 167 Lab Scanned Report REFERENCE LAB Medications Medication Current Medications Lorazepam (Ativan) 1 mg Q2 PRN IV SEIZURES Last administered on 05/02/19at 20:40; Admin Dose 1 MG; Start 04/30/19 at 14:00 Diagnostic Test (Pha) (Accu-Chek) 1 ea 02 XX ; Start 05/01/19 at 02:00 Insulin Glargine (Lantus) 14 units DAILY@2000 SC Last administered on 05/03/19 20:00; Admin Dose 14 UNITS; Start 04/30/19 at 20:00 Insulin Aspart (Novolog Insulin Pen) NOVOLOG *MILD* ALGORITHM WITH MEALS BEDTIME SC ; Start 04/30/19 at 18:00 IV Flush (NS 3 ml) 3 ml PER PROTOCOL IV ; Start 04/30/19 at 14:00 Ondansetron HCl (Zofran Inj) 4 mg Q6H PRN IV NAUSEA/VOMITING Last administered on 05/04/19 10:22; Admin Dose 4 MG; Start 04/30/19 at 14:00 Acetaminophen (Tylenol Tab) 650 mg Q6H PRN PO .PAIN 1-3 OR TEMP Last administered on 05/01/19 06:21; Admin Dose 650 MG; Start 04/30/19 at 14:00 Docusate Sodium (Colace) 100 mg Q12H PRN PO .CONSTIPATION; Start 04/30/19 at 14:00 Famotidine (Pepcid) 20 mg Q12 PO Last administered on 05/04/19 08:21; Admin Dose 20 MG; Start 04/30/19 at 21:00 Levetiracetam (Keppra) 500 mg BID PO Last administered on 05/04/19 08:21; Admin Dose 500 MG; Start 04/30/19 at 21:00 Lisinopril (Zestril) 10 mg DAILY PO Last administered on 05/04/19 08:21; Admin Dose 10 MG; Start 05/01/19 at 09:00 Magnesium Oxide (Mag-Ox 400) 400 mg BID PO Last administered on 05/04/19 08:21; Admin Dose 400 MG; Start 04/30/19 at 21:00 Metoprolol Tartrate (Lopressor) 50 mg BID PO Last administered on 05/03/19 21:02; Admin Dose 50 MG; Start 04/30/19 at 21:00 Rivaroxaban (Xarelto) 20 mg WITH DINNER PO Last administered on 05/03/19 17:43; Admin Dose 20 MG; Start 04/30/19 at 18:00 Miscellaneous Information 1 ea NOTE XX ; Start 04/30/19 at 14:30 Glucose (Glutose) 15 gm Q15M PRN PO DECREASED GLUCOSE; Start 04/30/19 at 14:30 Glucose (Glutose) 22.5 gm Q15M PRN PO DECREASED GLUCOSE; Start 04/30/19 at 14:30 Dextrose (D50w Syringe) 25 ml Q15M PRN IV DECREASED GLUCOSE; Start 04/30/19 at 14:30 Dextrose (D50w Syringe) 50 ml Q15M PRN IV DECREASED GLUCOSE; Start 04/30/19 at 14:30 Glucagon (Glucagen) 1 mg Q15M PRN IM DECREASED GLUCOSE; Start 04/30/19 at 14:30 Glucose (Glutose) 15 gm Q15M PRN BUCCAL DECREASED GLUCOSE; Start 04/30/19 at 14:30 Atorvastatin Calcium (Lipitor) 80 mg QHS PO Last administered on 05/03/19 21:02; Admin Dose 80 MG; Start 04/30/19 at 21:00 Aspirin (Aspirin) 81 mg DAILY PO Last administered on 05/04/19 08:21; Admin Dose 81 MG; Start 05/01/19 at 09:00 Cholecalciferol (Vitamin D) 1,000 unit DAILY PO Last administered on 05/04/19 08:21; Admin Dose 1,000 UNIT; Start 05/01/19 at 09:00 Ciprofloxacin (Cipro) 500 mg BID@06,18 PO Last administered on 05/04/19at 07:16; Admin Dose 500 MG; Start 05/02/19 at 10:00 Citalopram Hydrobromide (Celexa) 20 mg QPM PO Last administered on 05/03/19 21:02; Admin Dose 20 MG; Start 05/02/19 at 21:00 Magnesium Sulfate 50 ml @ 25 mls/hr ONCE ONCE IVPB Last administered on 05/04/19 08:29; Admin Dose 25 MLS/HR; Start 05/04/19 at 08:30; Stop 05/04/19 at 10:29 NJ TODD NP May 04, 2019 10:56
[2019-05-04] MEDS ORDERED: ACET/BUTAL/CAFF TAB PO ONE (11:30)
[2019-05-04 11:35] VITALS: BP 149/67; PULSE 57; RESP 18
[2019-05-04 15:25] VITALS: BP 107/55; PULSE 57; RESP 18
[2019-05-04] MEDS: RIVAROXABAN 20 MG TABLET PO SCH (17:16)
[2019-05-04 20:00] VITALS: BP 95/54; PULSE 61; RESP 17
[2019-05-04] MEDS: ATORVASTATIN 20 MG TAB PO SCH (21:21)
[2019-05-04] MEDS: CITALOPRAM 20 MG TAB PO SCH (21:21)
[2019-05-04] MEDS: INSULIN GLARGINE [LANTus] (100 UNITS/ML) SYG SC SCH (21:38)
[2019-05-05] VITALS: BP 98/55; PULSE 59; RESP 18
[2019-05-05] MEDS: ACCU-CHEK XX SCH (02:00)
[2019-05-05] MEDS: ACETAMINOPHEN 325 MG TAB PO PRN (05:29)
[2019-05-05] MEDS: CIPROFLOXACIN 500 MG TAB PO SCH (06:15)
[2019-05-05 07:08] VITALS: BP 121/63; PULSE 65; RESP 16
[2019-05-05] MEDS: INSULIN ASPART [NOVOLOG] 3 ML PEN SC SCH ×2 (07:46→11:45)
[2019-05-05] MEDS: ASPIRIN 81 MG TAB PO SCH (09:12)
[2019-05-05] MEDS: FAMOTIDINE 20 MG TAB PO SCH (09:12)
[2019-05-05] MEDS: CHOLECALCIFEROL 1,000 UNIT TAB PO SCH (09:12)
[2019-05-05] MEDS: MAGNESIUM OXIDE 400 MG TAB PO SCH (09:12)
[2019-05-05] MEDS: LEVETIRACETAM 500 MG TAB PO SCH (09:12)
[2019-05-05] MEDS: METOPROLOL 50 MG TAB PO SCH (09:13)
[2019-05-05] MEDS: LISINOPRIL 10 MG TAB PO SCH (09:13)
[2019-05-05 11:04] VITALS: BP 128/59; PULSE 59; RESP 18
[2019-05-05] MEDS ORDERED: MAGNESIUM SULFATE 3 GM in DEXTROSE 5% 100 ML IVPB ONE (11:30)
--- NOTE | 2019-05-05 13:17 | CONS ---
Assessment/Plan Assessment/Plan Hospital Course (Demo Recall) 1. Hypomagnesemia. 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 Unlikely bartter or gitleman syndrome. The patient's workup is ongoing. A fractional excretion of magnesium is pending. We will continue current medical management. Continue magnesium supplementation. Continue magnesium sulfate as needed. 2. Seizure disorder. Continue medical management. Follow up with neurology. 3. Hypertension. Continue current blood pressure regimen. 4. Atrial fibrillation. Continue current medical management. 5. Systemic therapy. 6. Diabetes. Continue current insulin regimen. 7. Vitamin D deficiency. Continue to monitor. 8. Urinary tract infection. Continue current antibiotic regimen. Consultation Date/Type/Reason Admit Date/Time Apr 30, 2019 at 10:20 Initial Consult Date Requesting Provider: TERA TARANGO NP Date/Time of Note DATE: 05/05/19 TIME: 13:15 24 HR Interval Summary Free Text/Dictation denies n/v or diarrhea d/w rn gen nad cv rrr pulm ctab abd soft nd nt +bs ext: no edema Exam/Review of Systems Exam Vitals Vital Signs Date Temp Pulse Resp B/P (MAP) Pulse Ox O2 O2 Flow FiO2 Time Delivery Rate 05/05/19 98.3 59 18 128/59 99 Room Air 11:04 (82) Intake and Output 05/04/19 05/04/19 05/05/19 1515:00 23:00 07:00 IntakeIntake Total 500 ml 800 ml 500 ml BalanceBalance 500 ml 800 ml 500 ml Results Result Diagram: 05/02/19 0539 05/03/19 0535 Results 24hrs Laboratory Tests Test 05/04/19 17:13 05/04/19 21:10 05/05/19 05:12 05/05/19 07:46 Bedside Glucose 127 134 122 Magnesium Level 1.6 L Test 05/05/19 11:45 Bedside Glucose 101 Medications Medication Current Medications Lorazepam (Ativan) 1 mg Q2 PRN IV SEIZURES Last administered on 05/02/19at 20:40; Admin Dose 1 MG; Start 04/30/19 at 14:00 Diagnostic Test (Pha) (Accu-Chek) 1 ea 02 XX ; Start 05/01/19 at 02:00 Insulin Glargine (Lantus) 14 units DAILY@1999 SC Last administered on 05/04/19 21:38; Admin Dose 14 UNITS; Start 04/30/19 at 20:00 Insulin Aspart (Novolog Insulin Pen) NOVOLOG *MILD* ALGORITHM WITH MEALS BED TIME SC ; Start 04/30/19 at 18:00 IV Flush (NS 3 ml) 3 ml PER PROTOCOL IV ; Start 04/30/19 at 14:00 Ondansetron HCl (Zofran Inj) 4 mg Q6H PRN IV NAUSEA/VOMITING Last administered on 05/04/19 10:22; Admin Dose 4 MG; Start 04/30/19 at 14:00 Acetaminophen (Tylenol Tab) 650 mg Q6H PRN PO .PAIN 1-3 OR TEMP Last administered on 05/05/19 05:29; Admin Dose 650 MG; Start 04/30/19 at 14:00 Docusate Sodium (Colace) 100 mg Q12H PRN PO .CONSTIPATION; Start 04/30/19 at 14:00 Famotidine (Pepcid) 20 mg Q12 PO Last administered on 05/05/19 09:12; Admin Dose 20 MG; Start 04/30/19 at 21:00 Levetiracetam (Keppra) 500 mg BID PO Last administered on 05/05/19 09:12; Admin Dose 500 MG; Start 04/30/19 at 21:00 Lisinopril (Zestril) 10 mg DAILY PO Last administered on 05/05/19 09:13; Admin Dose 10 MG; Start 05/01/19 at 09:00 Magnesium Oxide (Mag-Ox 400) 400 mg BID PO Last administered on 05/05/19 09:12; Admin Dose 400 MG; Start 04/30/19 at 21:00 Metoprolol Tartrate (Lopressor) 50 mg BID PO Last administered on 05/05/19 09:13; Admin Dose 50 MG; Start 04/30/19 at 21:00 Rivaroxaban (Xarelto) 20 mg WITH DINNER PO Last administered on 05/04/19 17:16; Admin Dose 20 MG; Start 04/30/19 at 18:00 Miscellaneous Information 1 ea NOTE XX ; Start 04/30/19 at 14:30 Glucose (Glutose) 15 gm Q15M PRN PO DECREASED GLUCOSE; Start 04/30/19 at 14:30 Glucose (Glutose) 22.5 gm Q15M PRN PO DECREASED GLUCOSE; Start 04/30/19 at 14:30 Dextrose (D50w Syringe) 25 ml Q15M PRN IV DECREASED GLUCOSE; Start 04/30/19 at 14:30 Dextrose (D50w Syringe) 50 ml Q15M PRN IV DECREASED GLUCOSE; Start 04/30/19 at 14:30 Glucagon (Glucagen) 1 mg Q15M PRN IM DECREASED GLUCOSE; Start 04/30/19 at 14:30 Glucose (Glutose) 15 gm Q15M PRN BUCCAL DECREASED GLUCOSE; Start 04/30/19 at 14:30 Atorvastatin Calcium (Lipitor) 80 mg QHS PO Last administered on 05/04/19at 21:21; Admin Dose 80 MG; Start 04/30/19 at 21:00 Aspirin (Aspirin) 81 mg DAILY PO Last administered on 05/05/19at 09:12; Admin Dose 81 MG; Start 05/01/19 at 09:00 Cholecalciferol (Vitamin D) 1,000 unit DAILY PO Last administered on 05/05/19at 09:12; Admin Dose 1,000 UNIT; Start 05/01/19 at 09:00 Ciprofloxacin (Cipro) 500 mg BID@06,18 PO Last administered on 05/05/19at 06:15; Admin Dose 500 MG; Start 05/02/19 at 10:00 Citalopram Hydrobromide (Celexa) 20 mg QPM PO Last administered on 05/04/19at 21:21; Admin Dose 20 MG; Start 05/02/19 at 21:00 Magnesium Sulfate 3 gm/Dextrose 106 ml @ 35.333 mls/ hr ONCE ONCE IVPB ; Start 05/05/19 at 11:30; Stop 05/05/19 at 14:29 MACY SHARP MD May 05, 2019 13:17
--- NOTE | 2019-05-05 15:17 | DS ---
Date/Time of Note Date/Time of Note DATE: 05/05/19 TIME: 15:16 Discharge Summary Admission/Discharge Info Admit Date/Time Apr 30, 2019 at 10:20 Discharge Date/Time Discharge Diagnosis 1. Seizure-like activity Vs involuntary movement/tremors. 2. Acute on chronic hypomagnesemia. Possible renal magnesium wasting. 3. History of CVA. 4. Paroxysmal atrial fibrillation. 5. Dyslipidemia. 6. Diabetes mellitus type 2. Hemoglobin A1c 5.8. 7. Major depressive disorder. 8. Vitamin D deficiency. 9. Hypertension. 10. Urinary tract infection. Patient Condition: Stable Consults 1. Justina Tovar MD, Neurology. 2. Teto Hare DO, Nephrology. Procedures Brain CT IMPRESSION: 1. Negative for intracranial hemorrhage or other acute process. 2. Remote lacunar infarct within the right caudate nucleus. 3. Bilateral carotid and vertebral artery atherosclerosis. Mild chronic small vessel ischemic changes. Brain MRI IMPRESSION: 1. Negative for intracranial hemorrhage or other acute process. 2. Remote lacunar infarct within the right caudate nucleus. 3. Bilateral carotid and vertebral artery atherosclerosis. Mild chronic small vessel ischemic changes. EEG IMPRESSION: Normal electroencephalogram during wakefulness and drowsiness. Hx of Present Illness This is a 64-year-old female with a past medical history of CVA, vertebral artery occlusions, diabetes mellitus, hypertension, vitamin D deficiency, chronic hypomagnesemia of unknown etiology, depression, and seizure disorder who presented to the emergency room with reported seizure episodes with right- sided facial droop and aphasia starting the prior day of admission, who was admitted to inpatient setting for further treatment and evaluation. Hospital Course The patient was monitored on telemetry floor. The patient had multiple episodes of seizure-like activity versus involuntary movements/tremors. The patient underwent extensive evaluation including a brain CT scan, brain MRI, and electroencephalography. All of these were negative for any acute findings. The patient was continued on her home Keppra. The patient was maintained on PRN Ativan for any seizure episodes. The patient most probably has these involuntary movement secondary to her underlying hypomagnesemia. The patient has a history of chronic hypomagnesemia and the patient is being evaluated for the possibility of renal magnesium wasting syndrome. The patient was being followed by nephrology. The patient was maintained on scheduled magnesium supplements along with as needed magnesium supplements for any low levels. Fractional excretion of magnesium is pending at this time. The patient has history of underlying CVA. The patient was maintained on Xarelto and statins. The patient has underlying paroxysmal atrial fibrillation. The patient remained in sinus rhythm during the hospital course. She has been on Xarelto for stroke prophylaxis. She has underlying dyslipidemia. She was maintained on statins. The patient has underlying diabetes mellitus type 2. The patient's hemoglobin A1c was found to 5.8. She was maintained on sliding scale insulin along with basal insulin during the hospitalization. Upon disc harge, she will be resumed on her oral regimen. She has underlying major depressive disorder. The patient was maintained on Celexa. Patient was maintained on vitamin D supplements for her underlying vitamin D deficiency. The patient has underlying hypertension. The patient was maintained on SUPRIYA inhibitors for her hypertension. The patient's urine culture showed positive E. coli with colony count of 10,000 to 20,000 CFU per mL. The patient was treated for any underlying urinary tract infection given that the patient has underlying seizure-like activities and this may be a precipitating factor for her underlying seizure-like activities. The patient was also evaluated by by speech therapy and physical therapy during this hospitalization. After discussion with the patient's family, it was felt that the most appropriate discharge disposition for this patient would be to a detention facility where she can have her magnesium levels checked on a regular basis and can have magnesium replacements as needed in addition to the scheduled magnesium. At this time I would like to thank all the consultants for seeing the patient and providing clinical recommendations. The patient was seen in collaboration with Dr. Grissom. Home Meds Active Scripts Rivaroxaban* (Xarelto*) 20 Mg Tablet, 20 MG PO WITH DINNER, #30 TAB Prov:BENITO GRISSOM MD 12/11/18 Metoprolol Tartrate* (Lopressor*) 50 Mg Tab, 50 MG PO BID, #60 TAB Prov:BENITO GRISSOM MD 12/11/18 Reported Medications Magnesium Oxide* (Mag-Oxide*) 400 Mg Tablet, 400 MG PO BID, TAB 04/30/19 Citalopram Hydrobromide* (Citalopram Hydrobromide*) 10 Mg Tablet, 10 MG PO QPM, #30 TAB 04/30/19 Glipizide* (Glipizide*) 5 Mg Tablet, 5 MG PO BID WITH MEALS, TAB 04/30/19 Levetiracetam* (Levetiracetam*) 500 Mg Tablet, 500 MG PO BID, TAB 04/11/19 Metformin Hcl* (Metformin Hcl*) 1,000 Mg Tablet, 1000 MG PO WITH BREAKFAST DINNE, #30 TAB 12/06/18 Atorvastatin Calcium* (Atorvastatin Calcium*) 20 Mg Tablet, 20 MG PO QHS, #30 TAB 12/06/18 Lisinopril* (Lisinopril*) 10 Mg Tablet, 10 MG PO DAILY, #30 TAB 12/06/18 Discontinued Reported Medications Penicillin V Potassium* (Penicillin V K*) 500 Mg Tab, 500 MG PO QID, TAB STOP DATE 04/13/19 04/11/19 Ibuprofen* (Ibuprofen*) 600 Mg Tablet, 600 MG PO Q8 PRN for NEEDED, TAB 04/11/19 Magnesium Oxide* (Magnesium Oxide*) 400 Mg Tablet, 400 MG PO BID, TAB 04/11/19 Glipizide* (Glipizide*) 5 Mg Tablet, 5 MG PO BID, TAB 12/06/18 Follow-up Plan The patient being transferred to a detention facility. Primary Care Provider Not On Staff Doctor Time spent on discharge: > 30 minutes Pending Labs Laboratory Tests Test 05/04/19 17:13 05/04/19 21:10 05/05/19 05:12 05/05/19 07:46 Bedside 127 134 122 Glucose mg/dL (70-220) mg/dL (70-220) mg/dL (70-220) Magnesium 1.6 Level mg/dl (1.7-2.5 ) Test 05/05/19 11:45 Bedside 101 Glucose mg/dL (70-220) [place] TODD NP May 05, 2019 15:17
[2019-05-05 15:18] VITALS: BP 135/75; PULSE 62; RESP 18
== END 2019-05-05 16:45 | DRG 101 ==
LOC: E/R 07:20 → 6WM 10:20 → CANRESERV 20:37 → 6WM 21:17
PROVIDERS: ADMIT Family Medicine; ATTEND Family Medicine
DX: G40.909 Epilepsy, unspecified, not intractable, without status epilepticus (principal); F33.9 Major depressive disorder, recurrent, unspecified; R25.1 Tremor, unspecified; E83.42 Hypomagnesemia; I48.0 Paroxysmal atrial fibrillation; E78.5 Hyperlipidemia, unspecified; E11.9 Type 2 diabetes mellitus without complications; F32.9 Major depressive disorder, single episode, unspecified; I10 Essential (primary) hypertension; E86.0 Dehydration; N39.0 Urinary tract infection, site not specified; R25.9 Unspecified abnormal involuntary movements; R53.81 Other malaise; Z86.73 Personal history of transient ischemic attack (TIA), and cerebral infarction without residual deficits; E55.9 Vitamin D deficiency, unspecified
CPT/HCPCS: 36415; 70450; 70551; 71045; 80048; 80053; 80061; 81001; 81003; 82043; 82607; 82652; 82962; 83036; 83735; 84100; 84155; 84300; 84443; 84484; 85025; 85610; 87086; 92507; 92523; 92526; 92610; 93005; 95819; 96374; 97110; 97116; 97162; 97530; J1815; J1953; J2060; J2405; J3475

== ENCOUNTER 2019-05-07 22:17 | Inpatient (IN) | payer OTHER ==
[~2019-05-07] VITALS: Ht 170.2 cm; Wt 90.2 kg
[~2019-05-07 22:17] MED LIST changes: -IBUP-1542 PO; -MAGN400T28 PO; -PENI500T PO
[2019-05-08] MEDS ORDERED: MAGNESIUM SULFATE 2 GM/50 ML 50 ML IVPB ONE
[2019-05-08] MEDS ORDERED: ACETAMINOPHEN 325 MG TAB PO PRN ×2 (02:30→06:00)
[2019-05-08] MEDS ORDERED: ONDANSETRON 4 MG INJ IV PRN ×2 (02:30→06:00)
[2019-05-08 04:30] VITALS: Ht 170.2 cm; Wt 90.2 kg
[2019-05-08 05:15] VITALS: BP 136/64; PULSE 61; RESP 18
[2019-05-08] MEDS ORDERED: GLUCOSE GEL 15 GRAM TUBE PO PRN ×2 (06:00)
[2019-05-08] MEDS ORDERED: NACL 0.9% 3 ML SYG IV SCH (06:00)
[2019-05-08] MEDS ORDERED: GLUCOSE GEL 15 GRAM TUBE BUCCAL PRN (06:00)
[2019-05-08] MEDS ORDERED: GLUCAGON 1 MG INJ IM PRN (06:00)
[2019-05-08] MEDS ORDERED: DEXTROSE 50% 50 ML SYRINGE IV PRN ×2 (06:00)
[2019-05-08] MEDS ORDERED: metFORMIN 500 MG TAB PO SCH (07:50)
[2019-05-08] MEDS ORDERED: METOPROLOL 50 MG TAB PO SCH (09:00)
[2019-05-08] MEDS ORDERED: BUSPIRONE 10 MG TAB PO SCH (09:00)
[2019-05-08] MEDS: CHOLECALCIFEROL 1,000 UNIT TAB PO SCH (09:20)
[2019-05-08] MEDS: LEVETIRACETAM 500 MG TAB PO SCH ×2 (09:20→20:55)
[2019-05-08] MEDS: MAGNESIUM OXIDE 400 MG TAB PO SCH ×2 (09:21→20:54)
[2019-05-08] MEDS: DOCUSATE SODIUM 100 MG CAP PO SCH ×2 (09:21→20:55)
[2019-05-08] MEDS: ASPIRIN (EC) 81 MG TAB PO SCH (09:21)
[2019-05-08] MEDS: FAMOTIDINE 20 MG TAB PO SCH ×2 (09:22→20:54)
[2019-05-08] MEDS: METOPROLOL 50 MG TAB PO SCH ×2 (09:22→20:55)
[2019-05-08] MEDS: LISINOPRIL 10 MG TAB PO SCH (09:23)
[2019-05-08] MEDS ORDERED: MAGNESIUM SULFATE 1 GM/D5W 100 ML IVPB ONE (12:30)
[2019-05-08 14:19] VITALS: BP 106/62; PULSE 63; RESP 19
[2019-05-08] MEDS: metFORMIN 500 MG TAB PO SCH (17:27)
[2019-05-08] MEDS: RIVAROXABAN 20 MG TABLET PO SCH (17:27)
[2019-05-08 19:35] VITALS: BP 123/72; PULSE 54; RESP 18
[2019-05-08] MEDS: CITALOPRAM 20 MG TAB PO SCH (20:54)
[2019-05-08] MEDS: ATORVASTATIN 20 MG TAB PO SCH (20:55)
[2019-05-08] MEDS: BUSPIRONE 10 MG TAB PO SCH (20:55)
[2019-05-09 01:51] VITALS: BP 105/60; PULSE 61; RESP 20
[2019-05-09 07:44] VITALS: BP 124/61; PULSE 70; RESP 18
[2019-05-09] MEDS: metFORMIN 500 MG TAB PO SCH ×2 (08:41→18:12)
[2019-05-09] MEDS: MAGNESIUM OXIDE 400 MG TAB PO SCH ×2 (08:41→20:45)
[2019-05-09] MEDS: LEVETIRACETAM 500 MG TAB PO SCH ×2 (08:41→20:44)
[2019-05-09] MEDS: CHOLECALCIFEROL 1,000 UNIT TAB PO SCH (08:41)
[2019-05-09] MEDS: ASPIRIN (EC) 81 MG TAB PO SCH (08:41)
[2019-05-09] MEDS: DOCUSATE SODIUM 100 MG CAP PO SCH ×2 (08:42→20:44)
[2019-05-09] MEDS: FAMOTIDINE 20 MG TAB PO SCH ×2 (08:44→20:45)
[2019-05-09] MEDS: LISINOPRIL 10 MG TAB PO SCH (08:44)
[2019-05-09] MEDS: METOPROLOL 50 MG TAB PO SCH ×2 (08:44→20:44)
[2019-05-09] MEDS: BUSPIRONE 10 MG TAB PO SCH ×2 (08:45→20:46)
[2019-05-09 15:29] VITALS: BP 127/69; PULSE 72; RESP 18
[2019-05-09] MEDS ORDERED: MAGNESIUM SULFATE 4 GM/100 ML 100 ML IVPB ONE (16:00)
[2019-05-09] MEDS: RIVAROXABAN 20 MG TABLET PO SCH (18:06)
[2019-05-09] MEDS: SOD CHLORIDE 0.45% 1,000 ML IV SCH (18:06)
[2019-05-09 20:25] VITALS: BP 131/73; PULSE 59; RESP 16
[2019-05-09] MEDS: ATORVASTATIN 20 MG TAB PO SCH (20:45)
[2019-05-09] MEDS: CITALOPRAM 20 MG TAB PO SCH (20:49)
[2019-05-10 01:52] VITALS: BP 111/58; PULSE 58; RESP 16
[2019-05-10 08:10] VITALS: BP 125/71; PULSE 57; RESP 18
[2019-05-10] MEDS: BUSPIRONE 10 MG TAB PO SCH ×2 (08:42→20:57)
[2019-05-10] MEDS: metFORMIN 500 MG TAB PO SCH ×2 (08:42→17:59)
[2019-05-10] MEDS: DOCUSATE SODIUM 100 MG CAP PO SCH ×2 (08:43→20:58)
[2019-05-10] MEDS: LEVETIRACETAM 500 MG TAB PO SCH ×2 (08:43→20:58)
[2019-05-10] MEDS: CHOLECALCIFEROL 1,000 UNIT TAB PO SCH (08:43)
[2019-05-10] MEDS: FAMOTIDINE 20 MG TAB PO SCH ×2 (08:43→20:57)
[2019-05-10] MEDS: MAGNESIUM OXIDE 400 MG TAB PO SCH ×2 (08:43→20:57)
[2019-05-10] MEDS: LISINOPRIL 10 MG TAB PO SCH (08:44)
[2019-05-10] MEDS: METOPROLOL 50 MG TAB PO SCH ×2 (08:44→20:59)
[2019-05-10] MEDS ORDERED: PETROLATUM 5 GM OINT TOP ONE (11:59)
[2019-05-10] MEDS: SOD CHLORIDE 0.45% 1,000 ML IV SCH (12:00)
[2019-05-10 16:31] VITALS: BP 125/69; PULSE 66; RESP 18
[2019-05-10] MEDS: RIVAROXABAN 20 MG TABLET PO SCH (17:59)
[2019-05-10 19:55] VITALS: BP 119/60; PULSE 68; RESP 18
[2019-05-10] MEDS: ATORVASTATIN 20 MG TAB PO SCH (20:57)
[2019-05-10] MEDS: CITALOPRAM 20 MG TAB PO SCH (20:59)
[2019-05-11 02:57] VITALS: BP 97/51; PULSE 63; RESP 18
[2019-05-11] MEDS ORDERED: MAGNESIUM SULFATE 2 GM/50 ML 50 ML IVPB ONE (07:30)
[2019-05-11 07:51] VITALS: BP 124/64; PULSE 59; RESP 19
[2019-05-11] MEDS: MAGNESIUM OXIDE 400 MG TAB PO SCH ×2 (09:05→20:36)
[2019-05-11] MEDS: metFORMIN 500 MG TAB PO SCH ×2 (09:05→17:55)
[2019-05-11] MEDS: DOCUSATE SODIUM 100 MG CAP PO SCH ×2 (09:05→20:35)
[2019-05-11] MEDS: CHOLECALCIFEROL 1,000 UNIT TAB PO SCH (09:05)
[2019-05-11] MEDS: LISINOPRIL 10 MG TAB PO SCH (09:06)
[2019-05-11] MEDS: LEVETIRACETAM 500 MG TAB PO SCH ×2 (09:06→20:36)
[2019-05-11] MEDS: FAMOTIDINE 20 MG TAB PO SCH ×2 (09:06→20:35)
[2019-05-11] MEDS: BUSPIRONE 10 MG TAB PO SCH ×2 (09:06→20:37)
[2019-05-11] MEDS: METOPROLOL 50 MG TAB PO SCH ×2 (09:07→20:35)
[2019-05-11] MEDS ORDERED: MAGNESIUM OXIDE 400 MG TAB PO ONE (14:30)
[2019-05-11 15:14] VITALS: BP 113/69; PULSE 60; RESP 18
[2019-05-11] MEDS: RIVAROXABAN 20 MG TABLET PO SCH (17:55)
[2019-05-11 19:25] VITALS: BP 112/74; PULSE 62; RESP 18
[2019-05-11] MEDS: CITALOPRAM 20 MG TAB PO SCH (20:37)
[2019-05-11] MEDS: ATORVASTATIN 20 MG TAB PO SCH (20:37)
[2019-05-12 02:17] VITALS: BP 95/55; PULSE 52; RESP 18
[2019-05-12 07:36] VITALS: BP 125/80; PULSE 56; RESP 18
[2019-05-12] MEDS: LEVETIRACETAM 500 MG TAB PO SCH ×2 (08:36→21:05)
[2019-05-12] MEDS: MAGNESIUM OXIDE 400 MG TAB PO SCH ×3 (08:37→21:04)
[2019-05-12] MEDS: metFORMIN 500 MG TAB PO SCH ×2 (08:37→17:29)
[2019-05-12] MEDS: FAMOTIDINE 20 MG TAB PO SCH ×2 (08:37→21:04)
[2019-05-12] MEDS: CHOLECALCIFEROL 1,000 UNIT TAB PO SCH (08:37)
[2019-05-12] MEDS: LISINOPRIL 10 MG TAB PO SCH (08:37)
[2019-05-12] MEDS: BUSPIRONE 10 MG TAB PO SCH ×2 (08:38→21:05)
[2019-05-12] MEDS: METOPROLOL 50 MG TAB PO SCH ×2 (08:38→21:05)
[2019-05-12] MEDS: DOCUSATE SODIUM 100 MG CAP PO SCH ×2 (09:00→21:00)
[2019-05-12 14:49] VITALS: BP 148/81; PULSE 51; RESP 18
[2019-05-12] MEDS ORDERED: MAGNESIUM SULFATE 3 GM in DEXTROSE 5% 100 ML IVPB ONE (15:30)
[2019-05-12] MEDS: RIVAROXABAN 20 MG TABLET PO SCH (17:29)
[2019-05-12] MEDS: AMILORIDE 5 MG TAB PO SCH (19:02)
[2019-05-12 20:30] VITALS: BP_SYST 128; BP_SYST 154; BP_DIAS 70; BP_DIAS 74; PULSE 62; PULSE 67; RESP 18
[2019-05-12] MEDS: OXCARBAZEPINE 150 MG TAB PO SCH (21:04)
[2019-05-12] MEDS: CITALOPRAM 20 MG TAB PO SCH (21:04)
[2019-05-13 02:25] VITALS: BP 121/60; PULSE 56; RESP 18
[2019-05-13 07:30] VITALS: BP_SYST 107; BP_SYST 124; BP_DIAS 56; BP_DIAS 64; PULSE 60; RESP 18; RESP 20
[2019-05-13] MEDS: LISINOPRIL 10 MG TAB PO SCH (09:00)
[2019-05-13] MEDS: DOCUSATE SODIUM 100 MG CAP PO SCH ×2 (09:00→21:00)
[2019-05-13] MEDS: METOPROLOL 50 MG TAB PO SCH ×2 (09:00→21:14)
[2019-05-13] MEDS: metFORMIN 500 MG TAB PO SCH ×2 (09:16→18:26)
[2019-05-13] MEDS: BUSPIRONE 10 MG TAB PO SCH ×2 (09:17→21:15)
[2019-05-13] MEDS: MAGNESIUM OXIDE 400 MG TAB PO SCH ×3 (09:20→21:13)
[2019-05-13] MEDS: FAMOTIDINE 20 MG TAB PO SCH ×2 (09:20→21:14)
[2019-05-13] MEDS: OXCARBAZEPINE 150 MG TAB PO SCH ×2 (09:20→21:14)
[2019-05-13] MEDS: CHOLECALCIFEROL 1,000 UNIT TAB PO SCH (09:21)
[2019-05-13] MEDS: AMILORIDE 5 MG TAB PO SCH (10:56)
[2019-05-13 14:00] VITALS: BP 139/62; PULSE 67; RESP 20
[2019-05-13] MEDS: RIVAROXABAN 20 MG TABLET PO SCH (18:26)
[2019-05-13 20:00] VITALS: BP 146/69; PULSE 60; RESP 18
[2019-05-13] MEDS ORDERED: CITALOPRAM 20 MG TAB PO SCH (21:00)
[2019-05-14 02:01] VITALS: BP 112/56; PULSE 63; RESP 18
[2019-05-14 08:21] VITALS: BP 113/67; PULSE 61; RESP 18
[2019-05-14] MEDS: DOCUSATE SODIUM 100 MG CAP PO SCH ×2 (08:55→09:00)
[2019-05-14] MEDS: FAMOTIDINE 20 MG TAB PO SCH (08:55)
[2019-05-14] MEDS: OXCARBAZEPINE 150 MG TAB PO SCH (08:56)
[2019-05-14] MEDS: LISINOPRIL 10 MG TAB PO SCH (08:56)
[2019-05-14] MEDS: CHOLECALCIFEROL 1,000 UNIT TAB PO SCH (08:56)
[2019-05-14] MEDS: METOPROLOL 50 MG TAB PO SCH (08:57)
[2019-05-14] MEDS: MAGNESIUM OXIDE 400 MG TAB PO SCH ×2 (08:57→12:42)
[2019-05-14] MEDS: AMILORIDE 5 MG TAB PO SCH (08:58)
[2019-05-14] MEDS: metFORMIN 500 MG TAB PO SCH ×2 (08:59→17:53)
[2019-05-14] MEDS: BUSPIRONE 10 MG TAB PO SCH (08:59)
[2019-05-14 15:23] VITALS: BP 138/66; PULSE 58; RESP 18
[2019-05-14] MEDS: RIVAROXABAN 20 MG TABLET PO SCH (17:53)
[2019-05-14 19:19] VITALS: BP 126/55; PULSE 56; RESP 18
[2019-05-14] MEDS ORDERED: CLOTRIMAZOLE 1% 30 GM CR TOP SCH (21:00)
== END 2019-05-14 20:00 | disposition home health service (06) | DRG 641 ==
LOC: E/R 22:17 → MS1 05-08 02:29
PROVIDERS: ADMIT Internal Medicine; ATTEND Internal Medicine
DX: E83.42 Hypomagnesemia (principal); N39.0 Urinary tract infection, site not specified; N17.9 Acute kidney failure, unspecified; I48.0 Paroxysmal atrial fibrillation; I10 Essential (primary) hypertension; E11.9 Type 2 diabetes mellitus without complications; R53.81 Other malaise; N28.9 Disorder of kidney and ureter, unspecified; E86.0 Dehydration; F32.9 Major depressive disorder, single episode, unspecified; E66.9 Obesity, unspecified; Z68.31 Body mass index [BMI] 31.0-31.9, adult; Z86.73 Personal history of transient ischemic attack (TIA), and cerebral infarction without residual deficits
CPT/HCPCS: 36415; 80048; 80053; 81001; 81003; 82043; 82150; 82962; 83690; 83735; 84100; 84155; 84295; 84300; 84484; 85025; 85610; 85730; 96365; 96366; 97110; 97116; 97162; 97530; J3475